=== PATIENT | female | born 2000 | race Caucasian/White ===

== ENCOUNTER 2022-09-18 08:05 | Outpatient (OUT) | payer OTHER, SELFPAY ==
--- NOTE | 2022-09-18 08:09 | US_ITS ---
[address] [address] Patient Name: LUCIAN CONTRERAS MRN: [id number] date: 2000 Sex: F Assigned Patient Location: US Current Patient Location: US Accession/Order Number: [id number] Exam Date: 09/18/2022 08:08 Report Date: 09/18/2022 09:15 At the request of: MIRELA TABOR Procedure: US OB transvaginal EXAMINATION: US OB transvaginal HISTORY: MISSED PERIOD COMPARISON: No relevant comparison available. FINDINGS: Transvaginal images Álvarez intrauterine gestation Gestational sac: 4.6 cm, 10 weeks 1 day CRL: 4.4 cm, 11 weeks 1 day Yolk sac: 3.8 mm Heart rate: 171 bpm Cervix: Closed, 4.3 cm The uterus is normal in appearance, anteverted, anteflexed The ovaries are normal in appearance. Clinical age: 8 weeks 5 days Clinical DONNA: 04/25/2023 Ultrasound age: 11 weeks 1 day Ultrasound DONNA: 04/08/2023 IMPRESSION: Viable álvarez intrauterine gestation measuring 11 weeks 1 day Electronically authenticated by: GALINA EVERETT Date: 09/18/2022 09:15
== END 2022-09-18 08:06 ==
LOC: US 08:06
PROVIDERS: Visit Provider Obstetrics & Gynecology
DX: Z34.91 Encounter for supervision of normal pregnancy, unspecified, first trimester (principal)
CPT/HCPCS: 36415; 76817; 83036; 84443; 85025; 86592; 86762; 86803; 86850; 86900; 86901; 87086; 87340; 87389

== ENCOUNTER 2022-09-18 10:45 | Outpatient (OUT) | payer OTHER, SELFPAY ==
[2022-09-18 11:30] LABS: Basophils Absolute Auto 0.1 10^3/uL (0.0-0.1); Basophils Percent Auto 0.9 % (0.2-2.0); Eosinophils Absolute Auto 0.1 10^3/uL (0.0-0.7); Hemoglobin 12.2 g/dL (12.0-16.0); Immature Granulocytes Abs Auto 0.05 10^3/uL (0.00-0.03); Immature Granulocytes Pct Auto 0.7 % (0.0-0.5); Lymphocytes Absolute Auto 1.6 10^3/uL (1.2-3.8); Mean Corpuscular HGB Conc 34.9 g/dL (29.9-35.2); Mean Corpuscular Hemoglobin 31.4 pg (26.7-34.0); Mean Platelet Volume 10.8 fL (9.5-13.5); Monocytes Absolute Auto 0.3 10^3/uL (0.3-0.8); Neutrophils Absolute Auto 4.8 10^3/uL (1.4-6.5); Neutrophils Percent Auto 70.4 % (43.0-75.0); Platelet Count 176 10^3/uL (150-450); Red Blood Count 3.89 10^6/uL (4.20-5.40); Red Cell Distribution Width 11.9 % (11.0-15.0); White Blood Count 6.8 10^3/uL (4.0-11.0)
[2022-09-18 11:57] LABS: Estimated Average Glucose 82 mg/dL; Glycohemoglobin A1C 4.5 % (4.5-6.2)
[2022-09-18 12:23] LABS: Thyroid Stimulating Hormone 3.931 uIU/mL (0.358-3.740)
[2022-09-19 06:09] LABS: HIV Ab/p24 Ag Screen Non Reactive (Non Reactive)
[2022-09-19 07:08] LABS: HBsAg Screen Negative (Negative); HCV Ab Non Reactive (Non Reactive); Rubella Antibodies, IgG 8.29 index (Immune >0.99)
[2022-09-19 10:10] LABS: Rapid Plasma Reagin, Quant Non Reactive (NonRea<1:1)
== END 2022-09-18 10:46 | disposition home or self-care (01) ==
LOC: LAB 10:48
PROVIDERS: Visit Provider Obstetrics & Gynecology
DX: N92.6 Irregular menstruation, unspecified (principal)
CPT/HCPCS: 36415; 83036; 84443; 85025; 86850; 86900; 86901

== ENCOUNTER 2022-10-21 20:53 | Outpatient (OUT) | payer OTHER, SELFPAY ==
[2022-10-28 03:22] LABS: Age Gdln ACOG Testing Note (.); HPV Aptima Negative (Negative); IGP, rfx Aptima HPV ASCU Note (.)
== END 2022-10-21 20:54 | disposition home or self-care (01) ==
PROVIDERS: Visit Provider Obstetrics & Gynecology
DX: Z12.4 Encounter for screening for malignant neoplasm of cervix (principal); Z11.51 Encounter for screening for human papillomavirus (HPV)
CPT/HCPCS: G0145

== ENCOUNTER 2022-11-19 08:55 | Outpatient (OUT) | payer OTHER, SELFPAY ==
--- NOTE | 2022-11-19 | US_ITS ---
[address] [address] Patient Name: LUCIAN CONTRERAS MRN: [id number] date: 2000 Sex: F Assigned Patient Location: US Current Patient Location: Accession/Order Number: [id number] Exam Date: 11/19/2022 08:59 Report Date: 11/19/2022 21:48 At the request of: MIRELA TABOR Procedure: US OB anatomy EXAMINATION: US OB anatomy HISTORY: ANATOMY COMPARISON: No relevant comparison available. TECHNIQUE: Transabdominal sonographic examination was performed for obstetrical and evaluation. FINDINGS: Number: 1 Heart Rate: 149.0 bpm H.B. /min Amniotic Fluid Volume: Subjectively normal Placental Location: Posterior, grade 0. Placental edge partially covers the internal os Cervix Length: 5 cm Normally visualized anatomy: Cerebellum, choroid plexus, cisterna magna, lateral cerebral ventricles, orbits, midline falx, hard palate, four-chamber heart, stomach, kidneys, bladder, umbilical cord insertion into the abdomen, three-vessel cord, cervical spine, thoracic spine, lumbar spine, sacral spine, right upper extremity, left upper extremity, right lower extremity, left lower extremity Suboptimally visualized anatomy: RVOT, LVOT BIOMETRY: BPD: 4.6 cm 19 weeks 5 days , 41% HC: 17.4 cm 19 weeks 6 days, 38% AC: 15.2 cm 20 weeks 3 days, 59% FL: 3.2 cm 20 weeks 0 days, 42% EFW:337.6 grams; 12 ounces, 56% FL/AC: 21.1 FL/BPD: 70.4 HC/AC: 1.1 GESTATIONAL AGE: Age by EDC: 20 weeks 0 days DONNA by EDC: 04/08/2023 Age by current US: 20 weeks 0 days DONNA by current US: 04/08/2023 US/US OB anatomy IMPRESSION: Suboptimal visualization of the RVOT and LVOT Partial placenta previa *Reference: [facility] Practice Guideline for the performance of Obstetric Ultrasound Examinations, January 04, 2007. Electronically authenticated by: GALINA EVERETT Date: 11/19/2022 21:48
== END 2022-11-19 08:56 | disposition home or self-care (01) ==
LOC: US 08:55
PROVIDERS: Visit Provider Obstetrics & Gynecology
DX: O44.22 Partial placenta previa NOS or without hemorrhage, second trimester (principal); Z3A.20 20 weeks gestation of pregnancy
CPT/HCPCS: 76805; 76817

== ENCOUNTER 2022-11-21 11:57 | Outpatient (OUT) | payer OTHER, SELFPAY ==
[2022-11-27 00:07] LABS: AFP Value 86.6 ng/mL (.); Gest. Age on Collection Date 20.3 weeks (.); Gestat. Age Based On Ultrasound (.); Insulin Dep Diabetes No (.); Maternal Age At EDD 22.2 yr (.); OSBR Risk 1 IN See interpretation. (.); Results Report (.)
== END 2022-11-21 11:58 | disposition home or self-care (01) ==
LOC: LAB 11:59
PROVIDERS: Visit Provider Obstetrics & Gynecology
DX: Z34.92 Encounter for supervision of normal pregnancy, unspecified, second trimester (principal)
CPT/HCPCS: 36415; 82105

== ENCOUNTER 2022-12-11 09:48 | Outpatient (OUT) | payer OTHER, SELFPAY ==
--- NOTE | 2022-12-11 10:03 | US_ITS ---
[place] [id number] Patient Name: LUCIAN CONTRERAS MRN: [id number] date: 2000 Sex: F Assigned Patient Location: RAD Current Patient Location: RAD Accession/Order Number: [id number] Exam Date: 12/11/2022 10:37 Report Date: 12/11/2022 16:38 At the request of: MIRELA TABOR Procedure: US OB placenta EXAM: US OB placenta, US OB transvaginal, US OB incomplete anatomy HISTORY: Placenta Previa Second Trimester O44.02 COMPARISON: None. TECHNIQUE: Transabdominal and transvaginal FINDINGS: position: Cephalic presentation, longitudinal lie Amniotic fluid: 13.2 cm Largest fluid pocket: 5.4 cm Placenta: Posterior. Grade 0. Placental edge to internal os 4.9 cm Heart rate: 139 bpm Cervix: Closed, 3.9 cm. 0.9 cm area of anechoic echogenicity possibly a nabothian cysts Anatomy: RVOT and four-chamber heart are normal Suboptimal visualization, LVOT Clinical age: 23 weeks 1 day Clinical DONNA: 04/08/2023 US/US OB placenta IMPRESSION: Normal appearance of the placenta Normal RVOT. 4 chamber heart Suboptimal visualization of the LVOT Electronically authenticated by: GALINA EVERETT Date: 12/11/2022 16:38
--- NOTE | 2022-12-11 10:03 | US_ITS ---
[address] [address] Patient Name: LUCIAN CONTRERAS MRN: [id number] date: 2000 Sex: F Assigned Patient Location: [facility] Current Patient Location: RAD Accession/Order Number: [id number] Exam Date: 12/11/2022 10:37 Report Date: 12/11/2022 16:38 At the request of: MIRELA TABOR Procedure: US OB incomplete anatomy EXAM: US OB placenta, US OB transvaginal, US OB incomplete anatomy HISTORY: Placenta Previa Second Trimester O44.02 COMPARISON: None. TECHNIQUE: Transabdominal and transvaginal FINDINGS: position: Cephalic presentation, longitudinal lie Amniotic fluid: 13.2 cm Largest fluid pocket: 5.4 cm Placenta: Posterior. Grade 0. Placental edge to internal os 4.9 cm Heart rate: 139 bpm Cervix: Closed, 3.9 cm. 0.9 cm area of anechoic echogenicity possibly a nabothian cysts Anatomy: RVOT and four-chamber heart are normal Suboptimal visualization, LVOT Clinical age: 23 weeks 1 day Clinical DONNA: 04/08/2023 US/US OB incomplete anatomy IMPRESSION: Normal appearance of the placenta Normal RVOT. 4 chamber heart Suboptimal visualization of the LVOT Electronically authenticated by: GALINA EVERETT Date: 12/11/2022 16:38
--- NOTE | 2022-12-11 10:34 | US_ITS ---
[address] [address] Patient Name: LUCIAN CONTRERAS MRN: [id number] date: 2000 Sex: F Assigned Patient Location: RAD Current Patient Location: RAD Accession/Order Number: [id number] Exam Date: 12/11/2022 10:37 Report Date: 12/11/2022 16:38 At the request of: MIRELA TBAOR Procedure: US OB transvaginal EXAM: US OB placenta, US OB transvaginal, US OB incomplete anatomy HISTORY: Placenta Previa Second Trimester O44.02 COMPARISON: None. TECHNIQUE: Transabdominal and transvaginal FINDINGS: position: Cephalic presentation, longitudinal lie Amniotic fluid: 13.2 cm Largest fluid pocket: 5.4 cm Placenta: Posterior. Grade 0. Placental edge to internal os 4.9 cm Heart rate: 139 bpm Cervix: Closed, 3.9 cm. 0.9 cm area of anechoic echogenicity possibly a nabothian cysts Anatomy: RVOT and four-chamber heart are normal Suboptimal visualization, LVOT Clinical age: 23 weeks 1 day Clinical DONNA: 04/08/2023 US/US OB transvaginal IMPRESSION: Normal appearance of the placenta Normal RVOT. 4 chamber heart Suboptimal visualization of the LVOT Electronically authenticated by: GALINA EVERETT Date: 12/11/2022 16:38
== END 2022-12-11 09:49 | disposition home or self-care (01) ==
LOC: RAD 09:52
PROVIDERS: Visit Provider Obstetrics & Gynecology
DX: O44.02 Complete placenta previa NOS or without hemorrhage, second trimester (principal); O28.8 Other abnormal findings on antenatal screening of mother; Z36.89 Encounter for other specified antenatal screening; Z3A.23 23 weeks gestation of pregnancy
CPT/HCPCS: 76815; 76817

== ENCOUNTER 2022-12-24 11:20 | Outpatient (OUT) | payer OTHER, SELFPAY ==
[2022-12-24 13:03] LABS: Glucose 1 Hour 98 mg/dL
[2022-12-24 13:29] LABS: Basophils Absolute Auto 0.1 10^3/uL (0.0-0.1); Eosinophils Absolute Auto 0.5 10^3/uL (0.0-0.7); Eosinophils Percent Auto 4.7 % (0.9-7.0); Hematocrit 34.6 % (36.0-48.0); Hemoglobin 12.1 g/dL (12.0-16.0); Immature Granulocytes Abs Auto 0.26 10^3/uL (0.00-0.03); Immature Granulocytes Pct Auto 2.6 % (0.0-0.5); Lymphocytes Absolute Auto 1.5 10^3/uL (1.2-3.8); Lymphocytes Percent Auto 15.4 % (20.5-60.0); Mean Corpuscular Hemoglobin 32.5 pg (26.7-34.0); Mean Platelet Volume 11.5 fL (9.5-13.5); Monocytes Absolute Auto 0.3 10^3/uL (0.3-0.8); Monocytes Percent Auto 3.2 % (1.7-12.0); Neutrophils Absolute Auto 7.2 10^3/uL (1.4-6.5); Neutrophils Percent Auto 73.1 % (43.0-75.0); Platelet Count 204 10^3/uL (150-450); Red Blood Count 3.72 10^6/uL (4.20-5.40); Red Cell Distribution Width 12.2 % (11.0-15.0); White Blood Count 9.9 10^3/uL (4.0-11.0)
== END 2022-12-24 11:21 | disposition home or self-care (01) ==
LOC: LAB 11:22
PROVIDERS: Visit Provider Obstetrics & Gynecology
DX: Z34.92 Encounter for supervision of normal pregnancy, unspecified, second trimester (principal)
CPT/HCPCS: 36415; 82950; 85025

== ENCOUNTER 2023-01-13 13:46 | Outpatient (OUT) | payer OTHER, SELFPAY | END 2023-01-13 13:47 | disposition home or self-care (01) | LOC: LAB 13:49 | PROVIDERS: Visit Provider Obstetrics & Gynecology | DX: N91.2 Amenorrhea, unspecified (principal) | CPT/HCPCS: 36415; 86850; 86900; 86901 ==

== ENCOUNTER 2023-01-14 07:39 | Outpatient (RCR) | payer OTHER, SELFPAY ==
[2023-01-14] MEDS: RHO(D) IMMUNE GLOBULIN 1,500 UNIT SYRINGE 1500 UNIT IM (11:45)
[2023-01-14 11:50] VITALS: BP 105/64; PULSE 100; RESP 18; TEMP 36.3; O2SAT 99
--- NOTE | 2023-01-14 12:25 | PC.NURSE ---
Patient without adverse reaction. Patient discharged home.
== END 2023-02-03 23:59 | disposition home or self-care (01) ==
LOC: INF 07:39
PROVIDERS: Visit Provider Obstetrics & Gynecology
DX: Z36.2 Encounter for other antenatal screening follow-up (principal); Z3A.20 20 weeks gestation of pregnancy; O26.893 Other specified pregnancy related conditions, third trimester; Z67.91 Unspecified blood type, Rh negative
CPT/HCPCS: 76816; 96372; J2790

== ENCOUNTER 2023-01-14 12:09 | Outpatient (OUT) | payer OTHER, SELFPAY ==
--- NOTE | 2023-01-14 14:02 | US_ITS ---
The [address] [address] Patient Name: LUCIAN CONTRERAS MRN: [id number] date: 2000 Sex: F Assigned Patient Location: US Current Patient Location: Accession/Order Number: [id number] Exam Date: 01/14/2023 14:05 Report Date: 01/14/2023 22:03 At the request of: MIRELA TABOR Procedure: US OB follow up EXAMINATION: US OB follow up HISTORY: Encounter For Follow Up Ultrasound Of Anatomy Z36.2 COMPARISON: Ultrasound OB anatomy 12/11/2022 FINDINGS: Presentation: Cephalic Heart rate: 142 bpm Anatomy: Four-chamber heart and cardiac outflow track without appreciable abnormality. GA: 20 weeks 0 days DONNA: 04/08/2023 US/US OB follow up IMPRESSION: 1. Single live intrauterine . 2. Adequate visualization of heart and cardiac outflow tracts without appreciable abnormality. Electronically authenticated by: LATRELL GARCIA Date: 01/14/2023 22:03
== END 2023-01-14 12:10 | disposition home or self-care (01) ==
LOC: US 12:10
PROVIDERS: Visit Provider Obstetrics & Gynecology
DX: Z36.2 Encounter for other antenatal screening follow-up (principal); Z3A.20 20 weeks gestation of pregnancy
CPT/HCPCS: 76816

== ENCOUNTER 2023-02-08 14:50 | Outpatient (OUT) | payer OTHER, SELFPAY ==
[2023-02-08 15:17] VITALS: BP 123/69; PULSE 88
[2023-02-08 15:37] LABS: Bilirubin Urine NEGATIVE (NEGATIVE); Blood Urine NEGATIVE (NEGATIVE); Clarity Urine CLEAR (CLEAR); Color Urine LT. YELLOW (YELLOW); Glucose Urine UA NEGATIVE (NEGATIVE); Ketones Urine NEGATIVE (NEGATIVE); Leukocyte Esterase Urine SMALL (NEGATIVE); Nitrite Urine NEGATIVE (NEGATIVE); Protein Urine NEGATIVE (NEG/TRACE); Urobilinogen Urine 0.2 EU/dL (0.2-1.0)
[2023-02-08 15:38] LABS: Urine Microscopic Indicated YES
[2023-02-08 15:48] LABS: Bacteria Urine SMALL #/HPF (NONE SEEN); Cast Seen? NONE SEEN #/LPF (NONE SEEN); Crystals Seen? None Seen #/HPF (None Seen); Mucus Urine NONE SEEN (NONE SEEN); RBC Urine 0-2 #/HPF (0-2); Squamous Epithelial Cell Urine MODERATE #/LPF (NONE/RARE); Urine Culture Indicated YES; WBC Urine 0-2 #/HPF (NONE SEEN)
== END 2023-02-08 16:57 | disposition home or self-care (01) ==
LOC: FBCO 14:52 → FBC 14:56
PROVIDERS: Visit Provider Obstetrics & Gynecology Gynecology
DX: O26.899 Other specified pregnancy related conditions, unspecified trimester (principal); R10.9 Unspecified abdominal pain; Z3A.00 Weeks of gestation of pregnancy not specified
CPT/HCPCS: 59025; 81001; 87086

== ENCOUNTER 2023-02-11 14:54 | Outpatient (OUT) | payer OTHER, SELFPAY ==
--- NOTE | 2023-02-11 14:57 | US_ITS ---
The [address] [address] Patient Name: LUCIAN CONTRERAS MRN: [id number] date: 2000 Sex: F Assigned Patient Location: US Current Patient Location: US Accession/Order Number: [id number] Exam Date: 02/11/2023 15:00 Report Date: 02/11/2023 16:05 At the request of: MIRELA TABOR Procedure: US OB growth EXAMINATION: US OB growth HISTORY: Size Inconsistent With Dates O26.849 COMPARISON: Ultrasound OB follow-up 01/14/2023; ultrasound OB incomplete anatomy 12/11/2022 FINDINGS: Heart Rate: 140.6 bpm Number: 1.0 Position: CEPHALIC Amniotic Fluid Volume: 11.0 cm Maximum Vertical Pocket: 4.1 cm BIOMETRY: BPD: 8.4 cm cm; 33 weeks 5 days HC: 30.0 cmcm; 33 weeks 1 days AC: 28.6 cm cm; 32 weeks 4 days FL: 6.0 cm cm; 31 weeks 2 days EFW: 1958.6 grams; 51% FL/AC: 21.1 FL/BPD: 71.9 HC/AC: 1.0 GESTATIONAL AGE: Age by EDC: 32 weeks 0 days DONNA by EDC: 04/08/2023 Age by US: 32 weeks 5 days DONNA by US: 04/03/2023 US/US OB growth IMPRESSION: 1. Single live intrauterine with growth detailed above. Electronically authenticated by: LATRELL GARCIA Date: 02/11/2023 16:05
--- OUTSIDE RECORDS SUMMARY | 2023-03-24 15:58 | XMS_ITS | CCD ---
Author Name Unknown Address [address] [place] [address] Organization [facility] Care Team Providers Care Basket Turner Name Role Phone NO FAMILY, PHYSICIAN Primary Care Unavailable Torito Garcia Admitting Unavailable Torito Garcia Attending Unavailable Torito Garcia Admitting Unavailable Torito Garcia Attending Unavailable NO FAMILY, PHYSICIAN Primary Care Unavailable Wallace Regalado Admitting Unavailable Wallace Regalado Attending Unavailable NO FAMILY, PHYSICIAN Primary Care Unavailable MAYELA ESPINO Admitting Unavailable MAYELA ESPINO Attending Unavailable REQUEST, NONE LISTED Primary Care Unavaila ble EDELMIRA INTERIANO Consulting Unavailable REQUEST, NONE LISTED Primary Care Unavaila ble PAY, DR BOWEN Admitting Unavailable PAY, DR BOWEN Attending Unavailable CHANG, DR RASCON Consulting Unavailable REQUEST, NONE LISTED Primary Care Unavaila ble MIREILLE, JODI Admitting Unavailable MIREILLE, JODI Attending Unavailable MIREILLE, JODI Consulting Unavailable REQUEST, NONE LISTED Primary Care Unavaila ble MIREILLE, JODI Admitting Unavailable MIREILLE, JODI Attending Unavailable MIREILLE, JODI Consulting Unavailable Ahdoot, Moni Consulting Unavailable NONE, XXXX Primary Care Physician Unavailab Ayaan Bliss H Attending Unavailable Ayaan Reed H Attending Unavailable Mirela TABOR Admitting Unavailable Mirela TABOR Attending Unavailable RUTH INTERIANO Attending Unavailable MIRELA TABOR Attending Unavailable SHARONA, MIRELA Attending Unavailable RUTH INTERIANO Attending Unavailable Allergies Allergy Classification Reported Allergen(s) Allergy Type Date of Onset Reaction(s) Facility (1 source) No Known Medication Allergies; Translations: [No Known Medication Allergies] Propensity to adverse reactions (disorder) [facility] Repository Medications Current Medications Medication Drug Class(es) Dates Sig (Normalized) Sig (Original) loratadine 10 mg oral tablet (2 sources) Start: 12-02-2022 End: 12-12-2022 take 1 tablet by mouth once daily loratadine 10 mg Tab 10 mg = 1 tab(s), Oral, Daily, X 10 day(s), # 10 tab(s), Refills(s) 0, Pharmacy: [facility]/pharmacy #[id number], 167.6, cm, 12/02/22 16:49:00 EDT, Height/Length Dosing, 61.4, kg, 12/02/22 16:49:00 EDT, Weight Dosing Start Date: 12/02/22 Stop Date: 12/12/22 Status: Ordered methylPREDNISolone 4 mg oral tablet (2 sources) Corticosteroid Start: 12-02-2022 End: 12-08-2022 Medrol Dosepack 4 mg Tab = 1 packet(s), Oral, As Directed, as directed on package labeling, X 6 day(s), # 21 tab(s), Refills(s) 0, Pharmacy: [facility]/pharmacy #[id number], 167.6, cm, 12/02/22 16:49:00 EDT, Height/Length Dosing, 61.4, kg, 12/02/22 16:49:00 EDT, Weight Dosing Start Date: 12/02/22 Stop Date: 12/08/22 Status: Ordered Multivitamins (2 sources) Start: 12-05-2022 take 1 tablet by mouth once daily Multivitamins 1 tab(s), Oral, Daily, Refill(s) 0 Start Date: 12/05/22 Status: Ordered Problems Active Problems Problem Classification Problem Date Documented Da te Episodic/Chronic Allergic reactions (1 source) Allergic disposition; Translations: [Allergy, unspecified, initial encounter] Onset: 12-02-2022 Episodic E Codes: Cut/pierceb (1 source) Other foreign body or object entering through skin, initial encounter; Translations: [OTH FB/OBJ ENTERING THRU SKIN INIT] Onset: 03-06-2022 Episodic E Codes: Struck by; against (1 source) Other cause of strike by thrown, projected or falling object, initial encounter; Translations: [OTH CAUSE STRIK THRWN/FALL OBJ INIT] Onset: 04-21-2022 Episodic Headache; including migraine (1 source) Headache; including migraine; Translations: [HEADACHE UNSPECIFIED] Onset: 02-17-2022 Nausea and vomiting (4 sources) Vomiting, unspecified; Translations: [Nausea with vomiting, unspecified] Onset: 02-14-2022 Episodic Other connective tissue disease (3 sources) Pain in right finger(s); Translations: [PAIN IN RIGHT FINGERS] Onset: 04-18-2022 Episodic Superficial injury; contusion (5 sources) Contusion of right index finger without damage to nail, initial encounter; Translations: [Superficial foreign body of left middle finger, initial encounter] Onset: 03-03-2022 Episodic Unclassified (1 source) Unspecified injury of left wrist, hand and finger(s), initial encounter; Translations: [Unspecified injury of left wrist, hand and finger(s), initial encounter] Onset: 03-03-2022 Unclassified (1 source) O03.9 - Complete or unspecified spontaneous without complication; Translations: [O03.9 - Complete or unspecified spontaneous without complication] Onset: 06-05-2021 Unclassified (1 source) N93.9 - Abnormal uterine and vaginal bleeding, unspecified; Translations: [N93.9 - Abnormal uterine and vaginal bleeding, unspecified] Onset: 05-28-2021 Unclassified (2 sources) Onset: 12-05-2022 12-05-2022 Past or Other Problems Problem Classification Problem Date Documented Da te Episodic/Chronic Other injuries and conditions due to external causes (1 source) History of falling; Translations: [HISTORY OF FALLING] Onset: 08-14-2021 Episodic Other nervous system disorders (3 sources) Anesthesia of skin; Translations: [ANESTHESIA OF SKIN] Onset: 08-12-2021 Episodic Other non-traumatic joint disorders (1 source) Pain in right hip; Translations: [PAIN IN RIGHT HIP] Onset: 08-14-2021 Episodic Spondylosis; intervertebral disc disorders; other back problems (1 source) Sciatica, right side; Translations: [SCIATICA RIGHT SIDE] Onset: 08-14-2021 Episodic Results Test Name Value Interpretation Reference Range Facil ity Nursing Assessmenton 023 Nursing Assessment [id number]:127 Normal [facility] Consent for Treatmenton Consent for Treatment [id number]:127 Normal [facility] Discharge Instructionson Discharge Instructions [id number]:127 Normal [facility] Inpatient Clinical Summaryon 12-05-2022 Inpatient Clinical Summary [address] [address] Clinical Summary Person Information Name: LUCIAN CONTRERAS/[facility] Age: 21 Years : 2000 Sex: Female PCP: NONE, XXXX Marital Status: Single Race: White Ethnicity: Non- or Language: Congolese Visit Id: Visit Reason: ABDOMINAL PAIN Speciality: Acuity: Enc Type: OB Triage Med Service: Obstetrics Arrival: 12/05/2022 15:05:48 Discharge: 12/05/2022 16:05:00 Dispo Type: Home ([facility] [place]) Address: [address] [place] [id number] Provider Notes: Diagnosis: Problems Active (12/05/2022) Smoking Status: Never Smoker, Former vaping or e-cigarette use Functional Status: Sensory Deficits: History of Falls: Mobility Assistance Prior to Admission: ADLs: Current Level of Assistance for Self-Care/Mobility: Cognitive Status: Allergies No Known Medication Allergies Laboratory or Other Results This Visit (last charted value for your 12/05/2022 visit) Urinalysis 12/05/2022 3:13 PM UA Bacteria: Trace /HPF UA Bili: Negative UA Color: Yellow UA Glucose: Negative UA Ketones: Negative UA Leuk Est: Trace UA Mucous: 1+ UA Nitrite: Negative UA Protein: Negative UA RBC: 0-3 /HPF UA Squam Epithelial: 0-2 /HPF UA Urobilinogen: 0.2 EU/dL -- Normal range between ( 0.0 and 1.0 ) UA WBC: 0-5 /HPF UA Spec Desc: Clean Catch UA Blood: Negative UA Clarity: Cloudy UA pH: 7.5 -- Normal range between ( 5.0 and 9.0 ) UA Spec Grav: 1.015 -- Normal range between ( 1.005 and 1.030 ) UA Amorph Gema: Present Measurements: Height: 167.6 cm Weight: 61.8 kg Blood Pressure: 115 mmHg / 63 mmHg BMI: 22 kg/m2 Procedures No Procedures Documented Immunizations No Immunizations Documented This Visit Final Med List: loratadine (loratadine 10 mg Tab) 1 Tablets By Mouth every day for 10 Days. Refills: 0. methylPREDNISolone (Medrol Dosepack 4 mg Tab) 1 Packets By Mouth As Directed for 6 Days. as directed on package labeling. Refills: 0. multivitamin, ( Multivitamins) 1 Tablets By Mouth every day. Care Team Members: Attending Physician: Mirela TABOR DO Consulting Physician: Referring Physician: Follow up: With: Address: When: Mirela TABOR [facility], [address] [place] [address] Kyle Diggs [place] [phone] [facility] (1) In 12 days 12/17/2022 Comments: Return if ruptured membranes or vaginal bleeding Return for decreased movement Return for contractions closer, longer, harder Call physician if symptoms worsen Call for severe abdominal pain Call for fever > 100.5 F Call for any problems. Patient Education Information: Second Trimester of , Msmj-er-Nutj Normal [facility] Inpatient Patient Summaryon 12-05-2022 Inpatient Patient Summary [address] [address] Patient Discharge Instructions PERSON INFORMATION Name: LUCIAN CONTRERAS Date of : 2000 Current Date: 12/05/2022 16:15:08 PHYSICIANS Admitting Physician: Mirela TABOR DO Primary Care Physician: NONE, XXXX PCP Phone Number: Comment: Discharge Diagnosis: Condition at Discharge: LUCIAN CONTRERAS has been given the following list of follow-up instructions, prescriptions, and patient education materials: PATIENT FOLLOW-UP INFORMATION Diet: Activity: Wound Care Instructions: Remove Your Dressing IN: Days Call Your Doctor For: IF UNABLE TO CONTACT YOUR PHYSICIAN AND YOU FEEL IT IS AN EMERGENCY, GO TO THE NEAREST EMERGENCY ROOM OR CALL 911 Home Treatment: Devices/Equipment: Special Services: Additional Instructions: Physician to provide the following pending test results: Follow up: With: Address: When: Mirela TABOR [facility], [address] [place] [address] , [place] [address] Business ([employer] In 12 days 12/17/2022 Comments: Return if ruptured membranes or vaginal bleeding Return for decreased movement Return for contractions closer, longer, harder Call physician if symptoms worsen Call for severe abdominal pain Call for fever > 100.5 F Call for any problems. In the event that this physician does not participate in your insurance network, please consult with your insurance company to find a nearby participating provider. Comment: BEN Moss KAITLYN E, have received the attached patient education materials/instructions and have verbalized understanding. Patient Signature Date Clinican/Nurse Signature Date MEDICATION LIST Medications to Continue with No Changes Other Medications loratadine (loratadine 10 mg Tab) 1 Tablets By Mouth every day for 10 Days. Refills: 0. Last Dose: Next Dose: methylPREDNISolone (Medrol Dosepack 4 mg Tab) 1 Packets By Mouth As Directed for 6 Days. as directed on package labeling. Refills: 0. Last Dose: Next Dose: multivitamin, ( Multivitamins) 1 Tablets By Mouth every day. Last Dose: Next Dose: Pharmacy Information: [facility] PATIENT EDUCATION INFORMATION Instructions: Second Trimester of The second trimester of is from week 13 through week 27. This is also called months 4 through 6 of . This is often the time when you feel your best. During the second trimester: ? Morning sickness is less or has stopped. ? You may have more energy. ? You may feel hungry more often. At this time, your unborn baby (fetus) is growing very fast. At the end of the sixth month, the unborn baby may be up to 12 inches long and weigh about 1? pounds. You will likely start to feel the baby move between 16 and 20 weeks of . Body changes during your second trimester Your body continues to go through many changes during this time. The changes vary and generally return to normal after the baby is born. Physical changes ? You will gain more weight. ? You may start to get stretch hall on your hips, belly (abdomen), and breasts. ? Your breasts will grow and may hurt. ? Dark spots or blotches may develop on your face. ? A dark line from your belly button to the pubic area (linea nigra) may appear. ? You may have changes in your hair. Health changes ? You may have headaches. ? You may have heartburn. ? You may have trouble pooping (constipation). ? You may have hemorrhoids or swollen, bulging veins (varicose veins). ? Your gums may bleed. ? You may pee (urinate) more often. ? You may have back pain. Follow these instructions at home: Medicines ? Take tfgi-ocr-wdxblup and prescription medicines only as told by your doctor. Some medicines are not safe during . ? Take a vitamin that contains at least 600 micrograms (mcg) of folic acid. Eating and drinking ? Eat healthy meals that include: ? Fresh fruits and vegetables. ? Whole grains. ? Good sources of protein, such as meat, eggs, or tofu. ? Low-fat dairy products. ? Avoid raw meat and unpasteurized juice, milk, and cheese. ? You may need to take these actions to prevent or treat trouble pooping: ? Drink enough fluids to keep your pee (urine) pale yellow. ? Eat foods that are high in fiber. These include beans, whole grains, and fresh fruits and vegetables. ? Limit foods that are high in fat and sugar. These include fried or sweet foods. Activity ? Exercise only as told by your doctor. Most people can do their usual exercise during . Try to exercise (more content not included)... Normal [facility] Insurance Correspondenceon 0 12-05-2022 Insurance Correspondence [id number]:127 Normal [facility] UA With Cult Reflexon 2022 Bacteria LM Ql (Urine sed) TRACE Normal Trace [facility] Comment on above: Performed By: #### 1 [id number] ####[facility] [address] [place] [address] Bilirubin Ql (U) Negative Normal Negative [facility] Comment on above: Performed By: #### 1 [id number] ####[facility] [address] [place] [address] Clarity (U) CLOUDY Abnormal Clear [facility] Comment on above: Performed By: #### 1 [id number] ####[address] [address] Color (U) YELLOW Normal Yellow [facility] Comment on above: Performed By: #### 1 [id number] ####[facility] [address] [place] [address] Crystals LM Ql (Urine sed) Present Normal [facility] Comment on above: Performed By: #### 1 [id number] ####[facility] [address] [place] [address] Epithelial cells.squamous LM .HPF (Urine sed) [#/Area] 0-2 Normal 0-2 [facility] Comment on above: Performed By: #### 1 [id number] ####[address] [address] Glucose Test strip (U) [Mass/Vol] Negative Normal Negative [facility] Comment on above: Performed By: #### 1 [id number] ####[address] [address] Hemoglobin Ql (U) Negative Normal Negative [facility] Comment on above: Performed By: #### 1 [id number] ####[address] [address] Ketones (U) [Mass/Vol] Negative Normal Negative [facility] Comment on above: Performed By: #### 1 [id number] ####[address] [address] [place].plasma/Joppa.RBC (Bld) [Mass ratio] 0-3 N ormal 0-3 [facility] Comment on above: Performed By: #### 1 [id number] ####[address] [address] Mucus Ql (Urine sed) 1+ Normal [facility] Comment on above: Performed By: #### 1 [id number] ####[address] [address] Nitrite Ql (U) Negative Normal Negative [facility] Comment on above: Performed By: #### 1 [id number] ####[address] [address] pH (U) 7.5 [pH] Invalid Interpretation Code 5.0-9.0 [facility] Comment on above: Performed By: #### 1 [id number] ####[address] [address] Protein (U) [Mass/Vol] Negative Normal Negative [facility] Comment on above: Performed By: #### 1 [id number] ####[address] [address] Specific gravity (U) [Rel density] 1.015 Invalid Interpretation Code 1.005-1.030 [facility] Comment on above: Performed By: #### 1 [id number] ####[facility] [address] [place] [address] Type of Urine collection method Clean Catch Normal [facility] Comment on above: Performed By: #### 1 [id number] ####[facility] [address] [place] [address] Urobilinogen Qn (U) 0.2 {Bradly'U}/dL Normal 0.0-1.0 [facility] Comment on above: Performed By: #### 1 [id number] ####[facility] [address] [place] [address] WBC Auto Ql (U) TRACE Abnormal Negative [facility] Comment on above: Performed By: #### 1 [id number] ####[facility] [address] [place] [address] WBC LM.HPF (Urine sed) [#/Area] 0-5 Normal 0-5 [facility] Comment on above: Performed By: #### 1 [id number] ####[facility] [address] [place] [address] URINALYSISOrdered By: Rob Obrien on 12-05-2022 Bacteria LM Ql (Urine sed) Trace /HPF Normal Trace/HPF [facility] UA Auto SS Bilirubin Ql (U) Negative (12/05/22 3:13 PM) Normal Negative [facility] UA Auto SS Clarity (U) Cloudy *ABN* (12/05/22 3:13 PM) Invalid Interpretation Code Clear [facility] UA Auto SS Color (U) Yellow (12/05/22 3:13 PM) Normal Yellow [facility] UA Auto SS Crystals LM Ql (Urine sed) Present (12/05/22 3:13 PM) Normal [facility] UA Auto SS Epithelial cells.squamous LM.HPF (Urine sed) [#/Area] 0-2 /HPF Normal 0-2/HPF [facility] UA Auto SS Glucose Test strip (U) [Mass/Vol] Negative (12/05/22 3:13 PM) Normal Negative [facility] UA Auto SS Hemoglobin Ql (U) Negative (12/05/22 3:13 PM) Normal Negative [facility] UA Auto SS Ketones (U) [Mass/Vol] Negative (12/05/22 3:13 PM) Normal Negative [facility] UA Auto SS [place].plasma/Lithi um.RBC (Bld) [Mass ratio] 0-3 /HPF Normal 0-3/HPF [facility] UA Auto SS Mucus Ql (Urine sed) 1+ (12/05/22 3:13 PM) Normal [facility] UA Auto SS Nitrite Ql (U) Negative (12/05/22 3:13 PM) Normal Negative [facility] UA Auto SS pH (U) 7.5 *NA* (12/05/22 3:13 PM) Invalid Interpretation Code 5.0 - 9.0 [facility] UA Auto SS Protein (U) [Mass/Vol] Negative (12/05/22 3:13 PM) Normal Negative [facility] UA Auto SS Specific gravity (U) [Rel density] 1.015 *NA* (12/05/22 3:13 PM) Invalid Interpretation Code 1.005 - 1.030 [facility] UA Auto SS UA Spec Desc Clean Catch (12/05/22 3:13 PM) Normal [facility] UA Auto SS Urobilinogen Qn (U) 0.6654233 {Bradly'U}/dL Normal 0.0 - 1.0 EU/dL [facility] UA Auto SS WBC Auto Ql (U) Trace *ABN* (12/05/22 3:13 PM) Invalid Interpretation Code Negative [facility] UA Auto SS WBC LM.HPF (Urine sed) [#/Area] 0-5 /HPF Normal 0-5/HPF [facility] UA Auto SS Consent for Treatmenton 11-05 Consent for Treatment [id number]:127 Normal [facility] Discharge Instructionson Discharge Instructions [id number]:127 Normal [facility] ED Clinical Summaryon 2022 ED Clinical Summary (Inserted Image. Lis ble to display) [place] [id number] ED Clinical Summary [facility] 21 [facility] : 2000 Sex: Female Language: Congolese PCP: NONE, XXXX Marital Status: Single Visit Id: Visit Reason: Rash; Eye problem; EYE IRRITATION W/ SWELLING & RASH/HIVES ON WRISTS Speciality: Acuity: 4 Enc Type: Emergency Med Service: Emergency Arrival: 12/02/2022 16:40:51 Discharge: 12/02/2022 17:01:49 LOS: 000 00:21 Checkin: 12/02/2022 16:40:51 Checkout: 12/02/2022 17:01:49 Dispo Type: Home (Routine DC) EVENTS: Event Name Event Status Request Date/Time Start Date/Time Complete Date/Time Arrive Complete 12/02/2022 16:40:51 12/02/2022 16:40:51 12/02/2022 16:40:51 Document Home Meds Request 12/02/2022 16:40:51 Triage Complete 12/02/2022 16:40:51 12/02/2022 16:49:30 12/02/2022 16:49:30 Bed Assign Complete 12/02/2022 16:44:20 12/02/2022 16:44:20 12/02/2022 16:44:20 Dr Exam Complete 12/02/2022 16:44:20 12/02/2022 16:47:57 12/02/2022 16:47:57 RN Exam Complete 12/02/2022 16:44:20 12/02/2022 16:51:36 12/02/2022 16:51:36 Registration Complete 12/02/2022 16:44:57 12/02/2022 16:44:57 12/02/2022 16:44:57 Reg Complete Request 12/02/2022 16:44:57 Reg Bed Request Complete 12/02/2022 16:44:57 12/02/2022 16:44:57 12/02/2022 16:44:57 Registration Request 12/02/2022 16:47:57 Dr Exam Complete 12/02/2022 16:53:40 12/02/2022 16:53:40 12/02/2022 16:53:40 Discharge Complete 12/02/2022 16:59:17 12/02/2022 17:01:53 12/02/2022 17:01:53 Transfer Complete 12/02/2022 17:01:53 12/02/2022 17:01:53 12/02/2022 17:01:53 ADDRESS: [address] [place] [id number] PHYS DOC NOTES: MEDICAL INFORMATION: Prescriptions Given: New Medications [id number], [address] [place], [place] [id number], [phone] loratadine (loratadine 10 mg Tab) 1 Tablets By Mouth every day for 10 Days. Refills: 0. methylPREDNISolone (Medrol Dosepack 4 mg Tab) 1 Packets By Mouth As Directed for 6 Days. as directed on package labeling. Refills: 0. PATIENT EDUCATION INFORMATION: Instructions: Allergies, Adult Follow up: With: Address: When: Ryan Link [address], [facility] [address] [place] [address] Business (1) In 3 days 12/05/2022 DIAGNOSIS: Allergic reaction Normal [facility] ED Note-Physicianon 12-03-19 ED Note-Physician Basic Information Time Seen: Carroll Keene PA-C 12/02/2022 16:47 Chief Complaint Pt reports eye swelling and rash on bilateral wrists. Eye swelling started around one week ago. denies exposure to chemicals/any new detergents/soaps History of Present Illness 21-year-old female comes to the ED for evaluation of allergic reaction. She had waxing waning allergic symptoms over the past week. She thought it was due to a new detergent but she changed her detergent continues to have symptoms. She complains of generalized pruritus and now is developed some facial swelling and eye irritation. No fever, chills, nausea, vomiting. No chest pain or shortness of breath. She is currently 25 weeks . Review of Systems A 10 point review of systems is negative except as noted above. Medical and Surgical History: Reviewed and noted Social history: Lives at home Tobacco: Denies Physical Exam Vitals & Measurements T: 36.5 ?C(Oral) HR: 108(Peripheral) RR: 16 BP: 124/82 SpO2: 100% HT: 167.64 cm WT: 61.4 kg BMI: 21.85 Nurses notes and vital signs reviewed and patient is not hypoxic. General: The patient appears well, resting comfortably. Skin: Warm, dry. Scattered urticarial rash Head: Atraumatic. Neck: No JVD. Eye: Allergic conjunctivitis with clear drainage Ears, Nose, Mouth, and Throat: Moist mucous membranes. Cardiovascular: Strong distal pulses. Chest wall: Respiratory: Respirations are nonlabored. Back: Normal range of motion. Musculoskeletal: Normal ROM with no gross deformity. Gastrointestinal: Urological: Neurological: Awake and alert. No focal deficits. Follows commands. Psychiatric: Cooperative. Medical Decision Making Patient presents with allergic reaction. Unclear trigger and she will continue to evaluate for possible causes. She now is developed facial involvement but no airway involvement. No fever, chills, nausea or vomiting. No chest pain or shortness of breath. She is treated Medrol Dosepak and loratadine she is discharged home with PCP follow-up. Patient was encouraged to return to the ED if symptoms worsen or change. Assessment/Plan Allergic reaction (T78.40XA: Allergy, unspecified, initial encounter) Orders: loratadine, 10 mg = 1 tab(s), Oral, Daily, X 10 day(s), # 10 tab(s), Refills(s) 0, Pharmacy: [facility]/pharmacy #[id number], 167.6, cm, 12/02/22 16:49:00 EDT, Height/Length Dosing, 61.4, kg, 12/02/22 16:49:00 EDT, Weight Dosing methylPREDNISolone, = 1 packet(s), Oral, As Directed, as directed on package labeling, X 6 day(s), # 21 tab(s), Refills(s) 0, Pharmacy: [facility]/pharmacy #[id number], 167.6, cm, 12/02/22 16:49:00 EDT, Height/Length Dosing, 61.4, kg, 12/02/22 16:49:00 EDT, Weight Dosing Disposition Plan Patient Discharge Condition Disposition: Discharged home Condition: Improved and stable Counseled: Patient and/or family were counseled to workup, results, treatment plan and follow-up recommendations Discharge Prescription List Prescriptions loratadine 10 mg Tab, 10 mg= 1 tab(s), Oral, Daily Medrol Dosepack 4 mg Tab, 1 packet(s), Oral, As Directed Follow-up With When Contact Information Ryan Link In 3 days 12/05/2022 EDT [address], [address] [facility] [place] [address] [facility] (1) Additional Instructions: Patient Education Allergies, Adult Attestation Patient seen and evaluated by the physician trust operations assistant. Attending physician was present in the emergency department and supervised care. This visit was performed by both the physician and an APC. I performed all aspects of the MDM as documented. This report was transcribed using voice recognition software. Every effort was made to ensure accuracy, however, inadvertently computerized horticultural services supervisor mistakes may be present. Appropriate healthcare PPE was used in evaluating this patient. The patient was placed in a mask. The healthcare provider was wearing mask, gloves, and utilizing proper hand hygiene. All equipment was properly cleansed. Problem List/Past Medical History Ongoing No qualifying data Historical No qualifying data Medications Inpatient No active inpatient medications Home loratadine 10 mg Tab, 10 mg= 1 tab(s), Oral, Daily Medrol Dosepack 4 mg Tab, 1 packet(s), Oral, As Directed Allergies No Known Medication Allergies Social History Alcohol - Denies Alcohol Use, 08/21/2022 Substance Abuse - Denies Substance Abuse, 08/21/2022 Tobacco - Denies Tobacco Use, 08/21/2022 Lab Results No qualifying data available. Diagnostic Results No qualifying data available. Normal [facility] Comment on above: Result Comment: Elec tronically Signed By: Carroll Keene PA-C\.br\Date and Time Signed: 12/02/22 17:06 EDT\.br\Electronically Co-Signed By: Ayaan Reed M.D.\.br\Date and Time Co-Signed: 12/02/22 17:10 EDT ED Patient Education Noteon 12-02-2022 ED Patient Education Note Immunology Allergies, Adult An allergy is a condition in which the body's defense system (immune system) comes in contact with an allergen and reacts to it. An allergen is anything that causes an allergic reaction. Allergens cause the immune system to make proteins for fighting infections (antibodies). These antibodies cause cells to release chemicals called histamines that set off the symptoms of an allergic reaction. Allergies often affect the nasal passages (allergic rhinitis), eyes (allergic conjunctivitis), skin (atopic dermatitis), and stomach. Allergies can be mild, moderate, or severe. They cannot spread from person to person. Allergies can develop at any age and may be outgrown. What are the causes? This condition is caused by allergens. Common allergens include: ? Outdoor allergens, such as pollen, car fumes, and mold. ? Indoor allergens, such as dust, smoke, mold, and pet dander. ? Other allergens, such as foods, medicines, scents, insect bites or stings, and other skin irritants. What increases the risk? You are more likely to develop this condition if you have: ? Family members with allergies. ? Family members who have any condition that may be caused by allergens, such as asthma. This may make you more likely to have other allergies. What are the signs or symptoms? Symptoms of this condition depend on the severity of the allergy. Mild to moderate symptoms ? Runny nose, stuffy nose (nasal congestion), or sneezing. ? Itchy mouth, ears, or throat. ? A feeling of mucus dripping down the back of your throat (postnasal drip). ? Sore throat. ? Itchy, red, watery, or puffy eyes. ? Skin rash, or itchy, red, swollen areas of skin (hives). ? Stomach cramps or bloating. Severe symptoms Severe allergies to food, medicine, or insect bites may cause anaphylaxis, which can be life-threatening. Symptoms include: ? A red (flushed) face. ? Wheezing or coughing. ? Swollen lips, tongue, or mouth. ? Tight or swollen throat. ? Chest pain or tightness, or rapid heartbeat. ? Trouble breathing or shortness of breath. ? Pain in the abdomen, vomiting, or diarrhea. ? Dizziness or fainting. How is this diagnosed? This condition is diagnosed based on your symptoms, your family and medical history, and a physical exam. You may also have tests, including: ? Skin tests to see how your skin reacts to allergens that may be causing your symptoms. Tests include: ? Skin prick test. For this test, an allergen is introduced to your body through a small opening in the skin. ? Intradermal skin test. For this test, a small amount of allergen is injected under the first layer of your skin. ? Patch test. For this test, a small amount of allergen is placed on your skin. The area is covered and then checked after a few days. ? Blood tests. ? A challenge test. For this test, you will eat or breathe in a small amount of allergen to see if you have an allergic reaction. You may also be asked to: ? Keep a food diary. This is a record of all the foods, drinks, and symptoms you have in a day. ? Try an elimination diet. To do this: ? Remove certain foods from your diet. ? Add those foods back one by one to find out if any foods cause an allergic reaction. How is this treated? Treatment for allergies depends on your symptoms. Treatment may include: ? Cold, wet cloths (cold compresses) to soothe itching and swelling. ? Eye drops or nasal sprays. ? Nasal irrigation to help clear your mucus or keep the nasal passages moist. ? A humidifier to add moisture to the air. ? Skin creams to treat rashes or itching. ? Oral antihistamines or other medicines to block the reaction or to treat inflammation. ? Diet changes to remove foods that cause allergies. ? Being exposed again and again to tiny amounts of allergens to help you build a defense against it (tolerance). This is called immunotherapy. Examples include: ? Allergy shot. You receive an injection that contains an allergen. ? Sublingual immunotherapy. You take a small dose of allergen under your tongue. ? Emergency injection for anaphylaxis. You give yourself a shot using a syringe (auto-injector) that contains the amount of medicine you need. Your health care provider will teach you how to give yourself an injection. Follow these instructions at home: Medicines ? Take or apply femj-ttr-bghgdsi and prescription medicines only as told by your health care provider. ? Always carry your auto-injector pen if you are at risk of anaphylaxis. Give yourself an injection as told by your health care provider. Eating and drinking ? Follow instructions from your health care provider about eating or drinking restrictions. ? Drink enough fluid to keep your urine pale yellow. General instructions ? Wear a medical alert bracelet or necklace to let others know that you have had (more content not included)... Normal [facility] ED Patient Summaryon 023 ED Patient Summary [address] [address] Patient Discharge Instructions Person Information Name: LUCIAN CONTRERAS Age: 21 Years Arrival Date: 12/02/2022 16:40:51 Discharge Diagnosis: Allergic reaction Primary Care Physician: NONE, XXXX Provider Information Primary Provider: Ayaan Reed M.D. Advanced Housekeeper And Laundry Assistant:Carroll Keene PA-C The exam and treatment you received in the Emergency Department were for an urgent problem and are not intended as complete care. It is important that you follow up with a doctor, nurse practitioner, or physician?s trust operations assistant for ongoing care. If your symptoms become worse or you do not improve as expected and you are unable to reach your usual health care provider, you should return to the Emergency Department. We are available 24 hours a day. LUCIAN CONTRERAS has been given the following list of patient education materials, prescriptions and follow-up instructions: Follow-up Instructions: With: Address: When: Ryan Link [address], [address] [place], [place] [id number] Business (1) In 3 days 12/05/2022 In the event that this physician does not participate in your insurance network, please consult with your insurance company to find a nearby participating provider. Patient Education Materials: Allergies, Adult A MESSAGE TO ALL PATIENTS REGARDING OPIOIDS PRESCRIPTION OPIOIDS: WHAT YOU NEED TO KNOW Prescription opioids can be used to help relieve ftmtqyej-ys-vbsvda pain and are often prescribed following a surgery or injury, or for certain health conditions. These medications can be an important part of the treatment but also come with serious risks. It is important to work with your healthcare provider to make sure you are getting the safest, most effective care. WHAT ARE THE RISKS AND SIDE EFFECTS OF OPIOID USE? Prescription opioids carry serious risks of addiction and overdose, especially with prolonged use. An opioid overdose, often marked by slowed breathing, can cause sudden . The use of prescription opioids can have a number of side effects as well, even when taken as directed: ? Tolerance?meaning you might need to take more of the medication for the same pain relief ? Physical dependence?meaning you have symptoms of withdrawal when a medication is stopped ? Increased sensitivity to pain ? Constipation ? Nausea, vomiting, and dry mouth ? Sleepiness and dizziness ? Confusion ? Depression ? Low levels of testosterone that can result in lower sex drive, energy, and strength ? Itching and sweating RISKS ARE GREATER WITH: ? History of drug misuse, substance use disorder, or overdose ? Mental health conditions (such as depression or anxiety) ? Sleep apnea ? Older age (65 years and older) ? Avoid alcohol while taking prescription opioids. Also, unless specifically advised by your health care provider, medications to avoid include: ? Benzodiazepines (such as Xanax or Valium) ? Muscle relaxants (such as Soma or Flexeril) ? Hypnotics (such as Ambien or Lunesta) ? Other prescription opioids KNOW YOUR OPTIONS Talk to your health care provider about ways to manage your pain that don?t involve prescription opioids. Some of these options may actually work better and have fewer risks and side effects. Options may include: ? Pain relievers such as acetaminophen, ibuprofen, and naproxen ? Some medication that are also used for depression or seizures ? Physical therapy and exercise ? Cognitive behavioral therapy, a psychological, goal-directed approach, in which patients learn how to modify physical, behavioral, and emotional triggers of pain and stress. IF YOU ARE PRESCRIBED OPIOIDS FOR PAIN: ? Never take opioids in greater amounts or more often than prescribed. ? Follow up with your primary health care provider. o Work together to create a plan on how to manage your pain. o Talk about ways to help manage your pain that don?t involve prescription opioids. o Talk about any and all concerns and side effects. ? Help prevent misuse and abuse o Never sell or share prescription opioids. o Never use another person?s prescription opioids. ? Store prescription opioids in a secure place and out of reach of others (this may include visitors, children, friends, and family). ? Safely dispose of unused prescription opioids: Find your community drug take-back program or your pharmacy mail-back program, or flush them down the toilet, following guidance from the Food and Drug Administration (www.fda.gov/Drugs/ResourcesForYou). ? Visit www.cdc.gov/drugoverdose to learn about the risks of opioids abuse and overdose. ? If you believe you may be struggling with addiction, tell your health healthcare representative and ask for guidance or call [facility]?S National Helpline at 6-906-344-HELP. v Source: [place] (more content not included)... Normal [facility] Discharge Instructionson Discharge Instructions [id number] Normal [facility] ED Clinical Summaryon 2022 ED Clinical Summary (Inserted Image. Lis ble to display) [place] [address] ED Clinical Summary Person Information Name: LUCIAN CONTRERAS[place] Age: 21 Years : 2000 Sex: Female Language: Congolese PCP: NONE, XXXX Marital Status: Single Visit Id: Visit Reason: Abdominal pain - ; APPROX 7 WKS - CRAMPING/TIGHNESS IN ABD Speciality: Acuity: 3 Enc Type: Emergency Med Service: Emergency Arrival: 08/21/2022 19:18:51 Discharge: 08/21/2022 22:54:21 LOS: 000 03:36 Checkin: 08/21/2022 19:18:51 Checkout: 08/21/2022 22:54:21 Dispo Type: Home (Routine DC) EVENTS: Event Name Event Status Request Date/Time Start Date/Time Complete Date/Time Arrive Complete 08/21/2022 19:18:51 08/21/2022 19:18:51 08/21/2022 19:18:51 Document Home Meds Request 08/21/2022 19:18:51 Triage Complete 08/21/2022 19:18:51 08/21/2022 19:27:38 08/21/2022 19:27:38 Bed Assign Complete 08/21/2022 19:23:29 08/21/2022 19:23:29 08/21/2022 19:23:29 Dr Exam Complete 08/21/2022 19:23:29 08/21/2022 19:25:04 08/21/2022 19:25:04 RN Exam Complete 08/21/2022 19:23:29 08/21/2022 19:43:53 08/21/2022 19:43:53 Registration Complete 08/21/2022 19:25:04 08/21/2022 19:27:37 08/21/2022 19:27:37 Reg Complete Request 08/21/2022 19:27:37 Reg Bed Request Complete 08/21/2022 19:27:37 08/21/2022 19:27:37 08/21/2022 19:27:37 Pending Labs Complete 08/21/2022 19:29:29 08/21/2022 19:52:58 Lab Complete 08/21/2022 19:29:29 08/21/2022 19:52:58 Urine Collect Complete 08/21/2022 19:29:29 08/21/2022 19:52:58 US Complete 08/21/2022 19:37:04 08/21/2022 21:10:23 08/21/2022 21:56:05 Pending Labs Complete 08/21/2022 19:37:04 08/21/2022 20:38:30 Blood Collect Request 08/21/2022 19:37:04 Lab Complete 08/21/2022 19:37:04 08/21/2022 20:38:30 Pending Labs Complete 08/21/2022 19:52:00 08/21/2022 19:52:00 08/21/2022 20:06:06 Lab Complete 08/21/2022 19:52:00 08/21/2022 19:52:00 08/21/2022 20:06:06 Pending Labs Complete 08/21/2022 19:55:55 08/21/2022 19:55:55 08/21/2022 19:56:01 Lab Complete 08/21/2022 19:55:55 08/21/2022 19:55:55 08/21/2022 19:56:01 Discharge Complete 08/21/2022 22:45:40 08/21/2022 22:57:31 08/21/2022 22:57:31 Transfer Complete 08/21/2022 22:57:31 08/21/2022 22:57:31 08/21/2022 22:57:31 ADDRESS: [address] [place] [id number] PHYS DOC NOTES: MEDICAL INFORMATION: Prescriptions Given: PATIENT EDUCATION INFORMATION: Instructions: Abdominal Pain During ; First Trimester of Follow up: With: Address: When: Mirela TABOR [facility], [address] [place] [address] [place] [address] Business (1) In 3 days 08/24/2022 Comments: Return to the emergency room if your abdominal pain pain becomes persistent, vaginal bleeding or any new symptom DIAGNOSIS: 1:Abdominal pain; 2: Normal [facility] ED Note-Physicianon 08-23-19 ED Note-Physician Basic Information Time Seen: Ayaan Reed M.D. 08/21/2022 19:25 Chief Complaint Pt reports abd cramping and tightness for 3 days. Pt reports approx 7wks . Denies vaginal bleeding/spotting. LMP 06/03. hx of miscarriage last year. History of Present Illness The patient is a 21-year-old female approximately 7 weeks , G3, who presented to the emergency room with abdominal pain. The patient states for the past 3 to 4 days she has been having cramping and points to the lower abdomen on and off. She states currently feels like a tight. She does have some vaginal discharge which is normal. She denies any vaginal bleeding. She states her last menstrual period was June 03. The patient states she had miscarriage on June last year. The patient denies any burning with urination or blood in urine. The patient denies any other associated symptoms. Review of Systems Additional ROS info: Except as noted in the above Review of Systems and in the History of Present Illness all other systems have been reviewed and are negative or noncontributory. Physical Exam Vitals & Measurements T: 37.1 ?C(Oral) HR: 85(Peripheral) RR: 15 BP: 135/78 SpO2: 99% HT: 168 cm WT: 57 kg BMI: 20.2 General: alert, no acute distress Skin: warm, dry Head: no trauma, normocephalic Neck: Trachea midline Eye: normal conjunctiva, sclera clear Cardiovascular: regular rate and rhythm Respiratory: Lungs CTA, respirations non labored, breath sounds equal Gastrointestinal: soft, non distended, no tenderness, no guarding Extremities: no deformity, no trauma Neurological: Alert and oriented, speech normal, no focal neuro deficits Psychiatric: cooperative, affect appropriate for age, Procedure [ x] The patient is and presents with abdominal pain or vaginal bleeding. A trans-abdominal or trans-vaginal ultrasound was performed and the location is documented. [SATISFIES MIPS PERFORMANCE] [ ] The patient is pregant and presents with abdominal pain or vaginal bleeding. A trans-abdominal or trans-vaginal ultrasound was NOT performed because [] (ex. patient has visited the ED multiple times in the last 72 hours, patient has documented intrauterine ) [MIPS PERFORMANCE EXCEPTION/EXCLUSION] [ ] The patient is pregant and presents with abdominal pain or vaginal bleeding. A trans-abdominal or trans-vaginal ultrasound was NOT performed, no reason documented. [DOES NOT SATISFY MIPS PERFORMANCE] Medical Decision Making MEDICAL DECISION MAKING Number and Complexity of Problems Differential Diagnosis: [] [facility] Data External documents reviewed: [] My EKG interpretation: [] My CT interpretation: [] My X-ray interpretation: [] My Ultrasound interpretation: [] Decision rules/scores evaluated: [] Discussed with: [] Treatment and Disposition ED Course: The patient presented with abdominal pain. Her abdominal pain has been on and off. She denies any vaginal bleeding. Her abdomen is soft nontender whatsoever. Beta-hCG is 54,416. The pelvic ultrasound revealed single live intra urine consistent with 6 weeks and 4 days. heart tones 129 bpm. Pelvic exam deferred. Will discharge patient home follow-up with her OB. She is instructed to return to the emergency room if her pain becomes persistent, vaginal bleeding or any new symptoms. Shared decision making: [] Code status: [] Assessment/Plan 1. Abdominal pain (R10.9: Unspecified abdominal pain) 2. (Z34.90: Encounter for supervision of normal , unspecified, unspecified trimester) Orders: ABO/Rh Automated Diff Basic Metabolic Panel Beta hCG Quantitative CBC w/ Auto Diff eGFR PT & PTT UA With Cult Reflex US 1st Trimester Disposition Plan Patient Discharge Condition Stable Discharge Disposition Discharged home Discharge Prescription List Prescriptions No active prescription medications Follow-up With When Contact Information Mirela TABOR In 3 days 08/24/[address] [place] [address]- Business (1) Additional Instructions: Return to the emergency room if your abdominal pain pain becomes persistent, vaginal bleeding or any new symptom Patient Education Abdominal Pain During First Trimester of Problem List/Past Medical History Ongoing No qualifying data Historical No qualifying data Medications Inpatient No active inpatient medications Home No active home medications Allergies No Known Medication Allergies Social History Alcohol - Denies Alcohol Use, 08/21/2022 Substance Abuse - Denies Substance Abuse, 08/21/2022 Tobacco - Denies Tobacco Use, 08/21/2022 Lab Results WBC: 7.2 E9/L (08/21/22 19:49:00) RBC: 4.1 E12/L Low (08/21/22 19:49:00) HGB: 12.4 gm/dL (08/21/22 19:49:00) Hct: 36.9 % (08/21/22 19:49:00) MCV: 90.8 fL (08/21/22 19:49:0 (more content not included)... Normal [facility] Comment on above: Result Comment: Elec tronically Signed By: Brianna Adams, Ayaan Cardenas\.br\Date and Time Signed: 08/21/22 22:57 EDT ED Patient Education Noteon 08-22-2022 ED Patient Education Note Obstetrics and Gynecology Abdominal Pain During Abdominal pain is common during and has many possible causes. Some causes are more serious than others, and sometimes the cause is not known. Abdominal pain can be a sign that labor is starting. It can also be caused by normal growth of your baby causing stretching of muscles and ligaments during . Always tell your health care provider if you have any abdominal pain. Follow these instructions at home: ? Do not have sex or put anything in your vagina until your pain goes away completely. ? Get plenty of rest until your pain improves. ? Drink enough fluid to keep your urine pale yellow. ? Take gzit-cpb-kgktkmh and prescription medicines only as told by your health care provider. ? Keep all follow-up visits. This is important. Contact a health care provider if: ? Your pain continues or gets worse after resting. ? You have lower abdominal pain that: ? Comes and goes at regular intervals. ? Spreads to your back. ? Is similar to menstrual cramps. ? You have pain or burning when you urinate. Get help right away if: ? You have a fever, chills, or shortness of breath. ? You have vaginal bleeding. ? You are leaking fluid or passing tissue from your vagina. ? You have vomiting or diarrhea that lasts for more than 24 hours. ? Your baby is moving less than usual. ? You feel very weak or faint. ? You develop severe pain in your upper abdomen. Summary ? Abdominal pain is common during and has many possible causes. ? If you experience abdominal pain during , tell your health care provider right away. ? Follow your health care provider's home care instructions and keep all follow-up visits as told. This information is not intended to replace advice given to you by your health care provider. Make sure you discuss any questions you have with your health care provider. Document Revised: 12/04/2020 Document Reviewed: 12/04/2020 [employer] Patient Education ? 2022 [place]. First Trimester of The first trimester of starts on the first day of your last menstrual period until the end of week 12. This is months 1 through 3 of . A week after a sperm fertilizes an egg, the egg will implant into the wall of the uterus and begin to develop into a baby. By the end of 12 weeks, all the baby's organs will be formed and the baby will be 2?3 inches in size. Body changes during your first trimester Your body goes through many changes during . The changes vary and generally return to normal after your baby is born. Physical changes ? You may gain or lose weight. ? Your breasts may begin to grow larger and become tender. The tissue that surrounds your nipples (areola) may become darker. ? Dark spots or blotches (chloasma or mask of ) may develop on your face. ? You may have changes in your hair. These can include thickening or thinning of your hair or changes in texture. Health changes ? You may feel nauseous, and you may vomit. ? You may have heartburn. ? You may develop headaches. ? You may develop constipation. ? Your gums may bleed and may be sensitive to brushing and flossing. Other changes ? You may tire easily. ? You may urinate more often. ? Your menstrual periods will stop. ? You may have a loss of appetite. ? You may develop cravings for certain kinds of food. ? You may have changes in your emotions from day to day. ? You may have more vivid and strange dreams. Follow these instructions at home: Medicines ? Follow your health care provider's instructions regarding medicine use. Specific medicines may be either safe or unsafe to take during . Do not take any medicines unless told to by your health care provider. ? Take a vitamin that contains at least 600 micrograms (mcg) of folic acid. Eating and drinking ? Eat a healthy diet that includes fresh fruits and vegetables, whole grains, good sources of protein such as meat, eggs, or tofu, and low-fat dairy products. ? Avoid raw meat and unpasteurized juice, milk, and cheese. These carry germs that can harm you and your baby. ? If you feel nauseous or you vomit: ? Eat 4 or 5 small meals a day instead of 3 large meals. ? Try eating a few soda crackers. ? Drink liquids between meals instead of during meals. ? You may need to take these actions to prevent or treat constipation: ? Drink enough fluid to keep your urine pale yellow. ? Eat foods that are high in fiber, such as beans, whole grains, and fresh fruits and vegetables. ? Limit foods that are high in fat and processed sugars, such as fried or sweet foods. Activity ? Exercise only as directed by your health care provider. Most people can continue their usual exercise routine during . Try to exercise for 30 minutes at least 5 days a week. ? Stop exercising (more content not included)... Normal [facility] ED Patient Summaryon 023 ED Patient Summary [address] [address] Patient Discharge Instructions Person Information Name: LUCIAN CONTRERAS Age: 21 Years Arrival Date: 08/21/2022 19:18:51 Discharge Diagnosis: 1:Abdominal pain; 2: Primary Care Physician: NONE, XXXX Provider Information Primary Provider: Brianna Adams, Ayaan Cardenas Advanced Housekeeper And Laundry Assistant:None The exam and treatment you received in the Emergency Department were for an urgent problem and are not intended as complete care. It is important that you follow up with a doctor, nurse practitioner, or physician?s trust operations assistant for ongoing care. If your symptoms become worse or you do not improve as expected and you are unable to reach your usual health care provider, you should return to the Emergency Department. We are available 24 hours a day. LUCIAN CONTRERAS has been given the following list of patient education materials, prescriptions and follow-up instructions: Follow-up Instructions: With: Address: When: Mirela [facility], [address] [place] [address] , [place] [address] Business (1) In 3 days 08/24/2022 Comments: Return to the emergency room if your abdominal pain pain becomes persistent, vaginal bleeding or any new symptom In the event that this physician does not participate in your insurance network, please consult with your insurance company to find a nearby participating provider. Patient Education Materials: Abdominal Pain During ; First Trimester of A MESSAGE TO ALL PATIENTS REGARDING OPIOIDS PRESCRIPTION OPIOIDS: WHAT YOU NEED TO KNOW Prescription opioids can be used to help relieve vfoydytg-to-rxgelb pain and are often prescribed following a surgery or injury, or for certain health conditions. These medications can be an important part of the treatment but also come with serious risks. It is important to work with your healthcare provider to make sure you are getting the safest, most effective care. WHAT ARE THE RISKS AND SIDE EFFECTS OF OPIOID USE? Prescription opioids carry serious risks of addiction and overdose, especially with prolonged use. An opioid overdose, often marked by slowed breathing, can cause sudden . The use of prescription opioids can have a number of side effects as well, even when taken as directed: ? Tolerance?meaning you might need to take more of the medication for the same pain relief ? Physical dependence?meaning you have symptoms of withdrawal when a medication is stopped ? Increased sensitivity to pain ? Constipation ? Nausea, vomiting, and dry mouth ? Sleepiness and dizziness ? Confusion ? Depression ? Low levels of testosterone that can result in lower sex drive, energy, and strength ? Itching and sweating RISKS ARE GREATER WITH: ? History of drug misuse, substance use disorder, or overdose ? Mental health conditions (such as depression or anxiety) ? Sleep apnea ? Older age (65 years and older) ? Avoid alcohol while taking prescription opioids. Also, unless specifically advised by your health care provider, medications to avoid include: ? Benzodiazepines (such as Xanax or Valium) ? Muscle relaxants (such as Soma or Flexeril) ? Hypnotics (such as Ambien or Lunesta) ? Other prescription opioids KNOW YOUR OPTIONS Talk to your health care provider about ways to manage your pain that don?t involve prescription opioids. Some of these options may actually work better and have fewer risks and side effects. Options may include: ? Pain relievers such as acetaminophen, ibuprofen, and naproxen ? Some medication that are also used for depression or seizures ? Physical therapy and exercise ? Cognitive behavioral therapy, a psychological, goal-directed approach, in which patients learn how to modify physical, behavioral, and emotional triggers of pain and stress. IF YOU ARE PRESCRIBED OPIOIDS FOR PAIN: ? Never take opioids in greater amounts or more often than prescribed. ? Follow up with your primary health care provider. o Work together to create a plan on how to manage your pain. o Talk about ways to help manage your pain that don?t involve prescription opioids. o Talk about any and all concerns and side effects. ? Help prevent misuse and abuse o Never sell or share prescription opioids. o Never use another person?s prescription opioids. ? Store prescription opioids in a secure place and out of reach of others (this may include visitors, children, friends, and family). ? Safely dispose of unused prescription opioids: Find your community drug take-back program or your pharmacy mail-back program, or flush them down the toilet, following guidance from the Food and Drug Administration (www.fda.gov/Drugs/ResourcesForYou). ? Visit www.cdc.gov/drugoverdose to learn about the risks of opioids abuse and overd (more content not included)... Normal [facility] US 1st Trimesteron 08-22-2022 US 1st Trimester Exam Date/Time: 08/21/2022 21:56 EDT Reason for Exam: Pelvic pain;Other (please specify) Report IMPRESSION: SINGLE LIVE INTRAUTERINE CORRESPONDING TO Composite Ultrasound Age: 6 weeks, 4 days, +/- 1 week. NO OTHER FINDINGS OF CONCERN IDENTIFIED. EXAM: US 1st Trimester DATE: 08/21/2022 CLINICAL HISTORY: Pelvic pain. COMPARISON: None available. TECHNIQUE: Transabdominal ultrasound was performed of the pelvis. FINDINGS: An approximately 2 cm mildly elongated gestational sac is present within the central aspect of the uterine body/fundus, without significant surrounding subchorionic hemorrhage. Windber Rump Length: 0.7 cm, which corresponds Composite Ultrasound Age: 6 weeks, 4 days, +/- 1 week. The estimated date of delivery by measurements is: DONNA from average ultrasound age: 0104/12/2023. The cervix and lower uterine segment appears closed and otherwise unremarkable. cardiac activity measures approximately 129 bpm, without visualized arrhythmia. There is no significant free fluid, or other findings of concern identified. The left ovary appears within normal limits. The right ovary is not visualized presumably secondary to overlying bowel gas. The uterus measurements and an estimated volume are: Uterus Length: 9.6 cm Uterus Width: 5.0 cm Uterus Height: 5.5 cm Uterus Volume: 137.2 cm3 Report The left ovary measurements and estimated volume are: Left Ovary Length: 2.5 cm Left Ovary Width: 2.6 cm Left Ovary Height: 2.9 cm Left Ovary Volume: 9.4 cm3 Ordering Provider: Ayaan Reed FINAL REPORT Dictated: 08/22/2022 10:26 am Tex Isaacs MD Signed (Electronic Signature): 08/22/2022 10:26 am Signed by: Tex Isaacs MD Transcribed by: CLARY Technologist: LIANG Technical Comments Unknown History 3 Para 1 SAB 1 FHR (bpm) 129 Windber Rump Length (in cm) 0.65 Normal [facility] ABO/Rhon 08-21-2022 ABO/Rh Negative Invalid Interpretation Code [facility] Comment on above: Performed By: #### 2 [id number] ####[facility] [address] [place] [address] Auto Diffon 08-21-2022 Basophils/100 WBC (Bld) 0.5 % Normal 0.0-2.0 [facility] Comment on above: Order Comment: Order Added by Discern Expert. Performed By: #### 1 [id number], [id number], 0642435, 0942926, 0520676 ####[facility] [address] [place] [address] Basophils/Leukocytes Auto (B ld) [Pure # fraction] 0.0 E9/L Normal 0.0-0.2 [facility] Comment on above: Order Comment: Order Added by Discern Expert. Performed By: #### 1 5786559, 77521725, 0827486, 4583037, 4314181 ####[address] [place] [address] Eosinophils/100 WBC (Bld) 0.5 % Normal 0.0-8.0 [facility] Comment on above: Order Comment: Order Added by Discern Expert. Performed By: #### 1 8691606, 35374735, 9196314, 2981426, 1889842 ####[address] [address] Eosinophils/Leukocytes Auto (Bld) [Pure # fraction] 0.0 E9/L Normal 0.0-0.[address] [facility] Comment on above: Order Comment: Order Added by Discern Expert. Performed By: #### 1 2412046, 93526626, 5045357, 1358733, 1241751 ####[address] [address] Lymphocytes/100 WBC (Bld) 15.7 % Normal 14.0-50.0 [facility] Comment on above: Order Comment: Order Added by Discern Expert. Performed By: #### 1 4734593, 93842958, 3091080, 7885937, 8946842 ####[address] [address] Lymphocytes/Leukocytes Auto (Bld) [Pure # fraction] 1.1 E9/L Normal 1.0-4.[address] [facility] Comment on above: Order Comment: Order Added by Discern Expert. Performed By: #### 1 6338863, 58282905, 0507135, 8242701, 3632508 ####[address] [address] Monocytes/100 WBC (Bld) 4.7 % Normal 4.0-14.0 [facility] Comment on above: Order Comment: Order Added by Discern Expert. Performed By: #### 1 3236987, 73558611, 9757415, 3162336, 8361634 ####[facility] [address] [place] [address] Monocytes/Leukocytes Auto (B ld) [Pure # fraction] 0.3 E9/L Normal 0.2-1.0 [facility] Comment on above: Order Comment: Order Added by Discern Expert. Performed By: #### 1 1916900, 35153239, 0692793, 5207877, 9485167 ####[facility] [address] [place] [address] Neutrophils/100 WBC (Bld) 78.6 % High 36.0-75.0 [facility] Comment on above: Order Comment: Order Added by Discern Expert. Performed By: #### 1 4787468, 82910599, 8308058, 7953927, 9974420 ####[facility] [address] [place] [address] Neutrophils/Leukocytes Auto (Bld) [Pure # fraction] 5.7 E9/L Normal 2.0-7.[address] [facility] Comment on above: Order Comment: Order Added by Discern Expert. Performed By: #### 1 5449133, 74550004, 8829902, 3264853, 0732633 ####[facility] [address] [place] [address] BMPon 08-21-2022 Creatinine [Mass/Vol] 0.7 mg/dL Normal 0.5-1.3 [facility] Comment on above: Performed By: #### 1 5365415, 69564421, 0255478, 0775750, 8544372 ####[facility] [address] [place] [address] Urea nitrogen [Mass/Vol] 8 mg/dL Normal 5-21 [facility] Comment on above: Performed By: #### 1 7591275, 64951290, 8226083, 3638968, 9616394 ####[facility] [address] [place] [address] Urea nitrogen/Creatinine [Ma ss ratio] 11 No Units Normal 10-20 [facility] Comment on above: Performed By: #### 1 3934708, 98113191, 2542564, 0737067, 3591775 ####[facility] [address] [place] [address] Anion gap [Moles/Vol] 15 mmol/L Normal 6-16 [facility] Comment on above: Performed By: #### 1 7470346, 61508600, 4019953, 3664011, 3024009 ####[facility] [address] [place] [address] Calcium [Mass/Vol] 9.1 mg/dL Normal 8.9-11.1 [facility] Comment on above: Performed By: #### 1 0996249, 39238273, 8794069, 3322323, 9010401 ####[facility] [address] [place] [address] Chloride [Moles/Vol] 102 mmol/L Normal 101-111 [facility] Comment on above: Performed By: #### 1 2705792, 12979675, 8097733, 0073719, 3606181 ####[facility] [address] [place] [address] CO2 [Moles/Vol] 23 mmol/L Normal 21-31 [facility] Comment on above: Performed By: #### 1 7135082, 40484585, 2682977, 2459486, 4668520 ####[facility] [address] [address] Glucose [Mass/Vol] 92 mg/dL Normal 55-199 [facility] Comment on above: Result Comment: If t his glucose result represents a fasting glucose, interpretation should refer to the following reference range: 55-99 mg/dL Performed By: #### 1 7017802, 84218706, 2743136, 8158272, 3911378 ####[facility] [address] [place] [address] Potassium [Moles/Vol] 3.5 mmol/L Normal 3.5-5.3 [facility] Comment on above: Performed By: #### 1 4680014, 70283578, 7765341, 6634687, 3470384 ####[facility] [address] [place] [address] Sodium [Moles/Vol] 136 mmol/L Normal 135-145 [facility] Comment on above: Performed By: #### 1 0991112, 66521481, 0917433, 1603100, 8515206 ####[facility] [address] [place] [address] BhCG Quanton 08-21-2022 [place] [address] m[IU]/mL High 1-3 [facility] Comment on above: Result Comment: GEST ATIONAL AGE HCG RANGE (mIU/mL) NON- <1-3 0.2-1 WEEKS 5-50 1-2 WEEKS 50-500 2-3 WEEKS 100-5,000 3-4 WEEKS 500-10,000 4-5 WEEKS 1,000-50,000 5-6 WEEKS 10,000-100,000 6-8 WEEKS 15,000-200,000 8-12 WEEKS 10,000-100,000 Performed By: #### 2 518858 ####[address] [place] [address] CBC w/ Auto Diffon Erythrocyte distribution wid th (RBC) [Ratio] 12.3 % Normal 10.9-14.2 [facility] Comment on above: Performed By: #### 1 8922222, 01710787, 3349698, 0118555, 0003613 ####[facility] [address] [place] [address] Hematocrit (Bld) [Volume fraction] 36.9 % Normal 34.0-46.0 [facility] Comment on above: Performed By: #### 1 8932114, 23068582, 4134741, 3514567, 1451085 ####[facility] [address] [place] [address] Hemoglobin (Bld) [Mass/Vol] 12.4 g/dL Normal 12.0-16. 0 [facility] Comment on above: Performed By: #### 1 9972935, 32959260, 1555427, 4156547, 4840459 ####[facility] [address] [place] [address] MCH (RBC) [Entitic mass] 30.4 pg Normal 27.0-34.0 [facility] Comment on above: Performed By: #### 1 3809913, 51536376, 0485477, 0056400, 7283146 ####[address] [address] MCHC (RBC) [Mass/Vol] 33.5 g/dL Normal 31.4-36.0 [facility] Comment on above: Performed By: #### 1 5776249, 79931449, 3953540, 7252278, 1755058 ####[facility] [address] [place] [address] MCV (RBC) [Entitic vol] 90.8 fL Normal 80.0-100.0 [facility] Comment on above: Performed By: #### 1 7196801, 97225592, 5405699, 4657042, 8503231 ####[facility] [address] [place] [address] Platelet mean volume (Bld) [Entitic vol] 9.1 fL Normal 6.4-10.8 [facility] Comment on above: Performed By: #### 1 8540066, 20109368, 1599632, 6012745, 1867110 ####[facility] [address] [place] [address] Platelets (Bld) [#/Vol] 224.0 E9/L Normal 150.0-500.0 [facility] Comment on above: Performed By: #### 1 9905881, 58689504, 6205076, 5216928, 3762202 ####[facility] [address] [place] [address] RBC (Bld) [#/Vol] 4.1 E12/L Low 4.3-5.9 [facility] Comment on above: Performed By: #### 1 4543921, 07633150, 8054281, 3790600, 3778758 ####[facility] [address] [place] [address] WBC corrected for nucl RBC A uto (Bld) [#/Vol] 7.2 E9/L Normal 4.0-11.0 [facility] Comment on above: Performed By: #### 1 1332725, 70271594, 5651068, 6722633, 5425882 ####[facility] [address] [place] [address] Consent for Treatmenton 08-04 Consent for Treatment [id number] Normal [facility] PT & PTTon 08-21-2022 aPTT Coag (PPP) [Time] 36.1 second(s) Normal 25.1-36.5 [facility] Comment on above: Result Comment: Para meter 15 days - 4 weeks 1 - 5 months 6 - 11 months 1 - 5 years 6 - 10 years 11 - 17 years PTT Mean: 35.4 (27.6-45.6) Mean: 33.5 (24.8-40.7) Mean: 32.4 (25.1-40.7) Mean: 31.6 (24.0-39.2) Mean: 31.6 (26.9-38.7) Mean: 31.0 (24.6-38.4) Pediatric Reference ranges were obtained from a study by Frankie Durán et al. prepared from 1437 samples obtained at 7 different centers using the same coagulation reagent and instrumentation as [facility]. Currently there are no coagulation studies available worldwide for children to 14 days, and no normal ranges. Heparin therapeutic range (represented by Anti-Factor Xa activity of 0.2 - 0.4 U/mL) corresponds to PTT of 56.6 - 109.0 sec. Performed By: #### 1 8904685, 81414927, 6985368, 5721029, 4335670 ####[facility] [address] [place] [address] INR Coag (PPP) [Relative time] 1.1 {INR} Invalid Interpretation Code [facility] Comment on above: Result Comment: INR results are specifically intended to assess patients stabilized on long-term Anticoagulation therapy suggested INR?s ?Less Intensive Anticoagulation? 2.0 ? 3.0 Conventional Range 3.0 ? 4.5 Performed By: #### 1 8703673, 19714583, 8568432, 4389223, 1807000 ####[facility] [address] [place] [address] PT Coag (PPP) [Time] 12.2 second(s) Normal 9.4-12.5 [facility] Comment on above: Result Comment: 15 d ays - 4 weeks 1 - 5 months 6 -11 months 1- 5 years 6-10 years 11 -17 years Mean: 11.2 (9.5-12.6) Mean: 11.0 (9.7-12.8) Mean: 11.0 (9.8-13.0) Mean: 11.3 (9.9-13.4) Mean: 11.7 (10.0-14.6) Mean: 11.8 (10.0 - 14.1) Pediatric Reference ranges were obtained from a study by Frankie Durán et al. prepared from 1437 samples obtained at 7 different centers using the same coagulation reagent and instrumentation as [facility]. Currently there are no coagulation studies available worldwide for children to 14 days, and no normal ranges. Performed By: #### 1 1636624, 56009189, 6860502, 2115921, 4492488 ####[facility] [address] [place] [address] UA With Cult Reflexon 2022 Bacteria LM Ql (Urine sed) 1+ /HPF Abnormal Trace [facility] Comment on above: Performed By: #### 1 6055502 ####[facility] [address] [place] [address] Crystals LM Ql (Urine sed) Present Normal [facility] Comment on above: Performed By: #### 1 5143405 ####[facility] [address] [place] [address] Epithelial cells.squamous LM .HPF (Urine sed) [#/Area] 0-2 Normal 0-2 [facility] Comment on above: Performed By: #### 1 4159368 ####[address] [address] Joppa.plasma/Joppa.RBC (Bld) [Mass ratio] 0-3 N ormal 0-3 [facility] Comment on above: Performed By: #### 1 6223542 ####[address] [address] Mucus Ql (Urine sed) 1+ Normal [facility] Comment on above: Performed By: #### 1 0092871 ####[address] [address] WBC LM.HPF (Urine sed) [#/Area] 0-5 Normal 0-5 [facility] Comment on above: Performed By: #### 1 7720004 ####[address] [address] Bilirubin Ql (U) Negative Normal Negative [facility] Comment on above: Performed By: #### 1 4230077 ####[address] [address] Clarity (U) CLEAR Normal Clear [facility] Comment on above: Performed By: #### 1 1300423 ####[address] [place] [address] Color (U) YELLOW Normal Yellow [facility] Comment on above: Performed By: #### 1 6626632 ####[address] [address] Glucose Test strip (U) [Mass/Vol] Negative Normal Negative [facility] Comment on above: Performed By: #### 1 5099715 ####[address] [place] [address] Hemoglobin Ql (U) Negative Normal Negative [facility] Comment on above: Performed By: #### 1 2961859 ####[address] [address] Ketones (U) [Mass/Vol] 3+ Abnormal Negative [facility] Comment on above: Performed By: #### 1 5416691 ####[address] [address] Nitrite Ql (U) Negative Normal Negative [facility] Comment on above: Performed By: #### 1 7141324 ####[address] [address] pH (U) 6.5 [pH] Invalid Interpretation Code 5.0-9.0 [facility] Comment on above: Performed By: #### 1 5586070 ####[address] [address] Protein (U) [Mass/Vol] Negative Normal Negative [facility] Comment on above: Performed By: #### 1 6692471 ####[address] [address] Specific gravity (U) [Rel density] 1.025 Invalid Interpretation Code 1.005-1.030 [facility] Comment on above: Performed By: #### 1 4068225 ####[address] [address] Type of Urine collection method Clean Catch Normal [facility] Comment on above: Performed By: #### 1 0021865 ####[address] [address] Urobilinogen Qn (U) 0.2 {Bradly'U}/dL Normal 0.0-1.0 [facility] Comment on above: Performed By: #### 1 3492468 ####[address] [address] WBC Auto Ql (U) TRACE Abnormal Negative [facility] Comment on above: Performed By: #### 1 4490517 ####[facility] [address] [place] [address] eGFRon 08-21-2022 GFR/1.73 sq M.predicted wali g non-blacks MDRD (S/P/Bld) [Vol rate/Area] 126 mL/min/1.73 m2 Normal >=59 [facility] Comment on above: Order Comment: Order added by Discern Expert. Result Comment: [employer] Tender shonna kidney disease could be indicated at eGFR's of less than 60 mL/min/1.73m2. Kidney failure is indicated at less than 15 mL/min/1.73m2. Performed By: #### 1 4307118, 55661038, 6267457, 2263875, 2718568 ####[facility] [address] [place] [address] XR HAND RT MIN 3Von 04-18-19 23 XR HAND RT MIN 3V EXAM: XR HAND RT MIN 3V HISTORY: Pain COMPARISON: None. TECHNIQUE: 3 views of the right hand FINDINGS: No acute fracture is seen. Joint alignment is normal. Joint spaces are preserved. Soft tissues appear unremarkable. IMPRESSION: No acute fracture or malalignment. Electronically authenticated by: MONI PIERCE Date: 2022-04-18 00:18 Normal [facility] URINE PROFILEon 2 Bilirubin Ql (U) Negative Normal NEGATIVE The [facility] Comment on above: Performed By: #### U MICRO, ERUR, PREGU #### [facility] [address] [place] [address] Dr. Bill Gan Clarity (U) CLEAR Normal CLEAR [facility] Comment on above: Performed By: #### U MICRO, ERUR, PREGU #### [facility] [address] [place] [address] Dr. Bill Gan Color (U) YELLOW Normal YELLOW [facility] Comment on above: Performed By: #### U MICRO, ERUR, PREGU #### [facility] [address] [place] [address] Dr. Bill Gan ERUAHD A micrscopic examina tion will be performed if indicated. Normal [facility] Comment on above: Performed By: #### U MICRO, ERUR, PREGU #### [facility] [address] [address] [address] Bill Gan Glucose Ql (U) Negative Normal NEGATIVE [facility] Comment on above: Performed By: #### U MICRO, ERUR, PREGU #### [facility] [address] [address] [address] Bill Gan Hemoglobin Ql (U) Negative Normal NEGATIVE [facility] Comment on above: Performed By: #### U MICRO, ERUR, PREGU #### [facility] [address] [address] [address] Bill Gan Ketones Ql (U) Negative Normal NEGATIVE [facility] Comment on above: Performed By: #### U MICRO, ERUR, PREGU #### [facility] [address] [address] [address] Bill Gan LEUKOCYTES Negative Normal NEGATIVE [facility] Comment on above: Performed By: #### U MICRO, ERUR, PREGU #### [facility] [address] [address] [address] Bill Gan Nitrite Ql (U) Negative Normal NEGATIVE [facility] Comment on above: Performed By: #### U MICRO, ERUR, PREGU #### [facility] [address] [address] [address] Bill Gan pH (U) 7.5 [pH] Normal 5-9 [facility] Comment on above: Performed By: #### U MICRO, ERUR, PREGU #### [facility] [address] [address] [address] Bill Gan Protein (U) [Mass/Vol] 100 mg/dL Abnormal NEGATIVE/ TRA CE [facility] Comment on above: Performed By: #### U MICRO, ERUR, PREGU #### [facility] [address] [address] [address] Bill Gan SPEC GRAVITY 1.020 Normal 1.005-<=1.025 [facility] Comment on above: Performed By: #### U MICRO, ERUR, PREGU #### [facility] [address] [address] [address] Bill Gan UR MICRO IND INDICATED Normal [facility] Comment on above: Performed By: #### U MICRO, ERUR, PREGU #### [facility] [address] [place] [address] Dr. Bill Gan Urobilinogen Qn (U) 2.0 {Bradly'U}/dL Abnormal 0.2 - 1. 0 [facility] Comment on above: Performed By: #### U MICRO, ERUR, PREGU #### [facility] [address] [place] [address] Dr. Bill Gan URon 02-14-2022 , QUAL Negative Normal NEGATIVE [facility] Comment on above: Performed By: #### U MICRO, ERUR, PREGU #### [facility] [address] [place] [address] Dr. Bill Gan URINE MICROSCOPIC ONLYon BACTERIA NONE SEEN Normal NONE SEEN [facility] Comment on above: Performed By: #### U MICRO, ERUR, PREGU #### [facility] [address] [place] [address] Dr. Bill Gan Bacteria identified Cx Nom (U) NOT INDICATED Normal [facility] Comment on above: Performed By: #### U MICRO, ERUR, PREGU #### [facility] [address] [place] [address] Dr. Bill Gan CAST NONE SEEN Normal NONE SEEN [facility] Comment on above: Performed By: #### U MICRO, ERUR, PREGU #### [facility] [address] [place] [address] Dr. Bill Gan Crystals LM Nom (Urine sed) NONE SEEN Normal NONE SEE N [facility] Comment on above: Performed By: #### U MICRO, ERUR, PREGU #### [facility] [address] [place] [address] Dr. Bill Gan Epithelial cells LM Ql (Urin e sed) MODERATE Abnormal NONE SEEN /RARE The [facility] pital Comment on above: Performed By: #### U MICRO, ERUR, PREGU #### [facility] [address] [address] [address] Bill Gan MUCOUS NONE SEEN Normal NONE SEEN [facility] Comment on above: Performed By: #### U MICRO, ERUR, PREGU #### [facility] [address] [address] [address] Bill Gan RBC NONE SEEN Abnormal 0-2 [facility] Comment on above: Performed By: #### U MICRO, ERUR, PREGU #### [facility] [address] [address] [address] Bill Gan WBC NONE SEEN Normal NONE SEEN [facility] Comment on above: Performed By: #### U MICRO, ERUR, PREGU #### [facility] [address] [address] [address] Bill Gan ABO/RH Typeon 06-05-2021 ABO and Rh group Nom (Bld) Blood group A Rh(D) negative Normal [facility] Comment on above: Result Comment: PERF ORMED BY: [place] [address] PATHOLOGIST MEDICAL CERTIFICATION SPECIALIST BON ZAYAS M.D. Basic Metabolic Panelon 03-0 Calcium [Mass/Vol] 8.8 mg/dL Normal 8.2-10.2 [facility] Comment on above: Performed By: #### C BC, BMP, HCGQNT #### [facility] [address] [place] [address] [place] Chloride [Moles/Vol] 105 mmol/L Normal 95-114 [facility] Comment on above: Performed By: #### C BC, BMP, HCGQNT #### [facility] [address] [place] [address] [place] CO2 [Moles/Vol] 23.8 mmol/L Normal 22.0-30.0 [facility] Comment on above: Performed By: #### C BC, BMP, HCGQNT #### [facility] [address] Creatinine [Mass/Vol] 0.75 mg/dL Normal 0.44-1.03 [facility] Comment on above: Performed By: #### C BC, BMP, HCGQNT #### [facility] [address] [place] [address] [place] Creatinine Clr Calc Pharmacy 101.10 [facility] Comment on above: Performed By: #### C BC, BMP, HCGQNT #### [facility] [address] [place] [address] [place] Estimated GFR ( Chasity > 60 [facility] Comment on above: Result Comment: GFR estimated reference range: According to KDOQI guidelines, <60 ml/min/1.73m2 is sufficient to diagnose a patient with chronic kidney disease. Performed By: #### C BC, BMP, HCGQNT #### [facility] [address] Estimated GFR (Non- Am > 60 [facility] Comment on above: Performed By: #### C BC, BMP, HCGQNT #### [facility] [address] Glucose [Mass/Vol] 93 mg/dL Normal 70-100 [facility] Comment on above: Result Comment: [place] Glucose Reference Range is dependent on time and content of last meal. Glucose of more than 200 mg/dL in a nonstressed, ambulatory subject supports the diagnosis of Diabetes Mellitus. ADA recommended reference range Performed By: #### C BC, BMP, HCGQNT #### [facility] [address] Potassium [Moles/Vol] 3.6 mmol/L Normal 3.5-5.1 [facility] Comment on above: Performed By: #### C BC, BMP, HCGQNT #### [facility] [address] Sodium [Moles/Vol] 136 mmol/L Normal 136-146 [facility] Comment on above: Performed By: #### C BC, BMP, HCGQNT #### [facility] [address] Urea nitrogen [Mass/Vol] 8 mg/dL Low - [facility] Comment on above: Performed By: #### C BC, BMP, HCGQNT #### [address] Complete Blood Count Auto Di ffon 06-05-2021 Basophils (Bld) [#/Vol] 0.1 10*3/uL Normal 0.0-0.2 [facility] Comment on above: Result Comment: PERF ORMED BY: [place] [address] PATHOLOGIST MEDICAL CERTIFICATION SPECIALIST BON ZAYAS M.D. Performed By: #### C BC, BMP, HCGQNT #### [address] Basophils/100 WBC (Bld) 1.3 % Normal . [facility] Comment on above: Performed By: #### C BC, BMP, HCGQNT #### [facility] [address] [place] [address] Eosinophils (Bld) [#/Vol] 0.1 10*3/uL Normal 0.0-0.45 [facility] Comment on above: Performed By: #### C BC, BMP, HCGQNT #### [address] Eosinophils/100 WBC (Bld) 2.2 % Normal . [facility] Comment on above: Performed By: #### C BC, BMP, HCGQNT #### [facility] [address] [place] [address] Erythrocyte distribution wid th (RBC) [Ratio] 12.8 % Normal 11.9-15.3 [facility] Comment on above: Performed By: #### C BC, BMP, HCGQNT #### [address] Hematocrit (Bld) [Volume fraction] 36.8 % Normal 34.0-46.4 [facility] Comment on above: Performed By: #### C BC, BMP, HCGQNT #### [address] Hemoglobin (Bld) [Mass/Vol] 12.3 g/dL Normal 11.8-15. 4 [facility] Comment on above: Performed By: #### C BC, BMP, HCGQNT #### [address] Lymphocytes (Bld) [#/Vol] 2.5 10*3/uL Normal 1.00-4.8 [facility] Comment on above: Performed By: #### C BC, BMP, HCGQNT #### [address] Lymphocytes/100 WBC (Bld) 39.4 % Normal . [facility] Comment on above: Performed By: #### C BC, BMP, HCGQNT #### [address] MCH (RBC) [Entitic mass] 30.6 pg Normal 24.7-34.3 [facility] Comment on above: Performed By: #### C BC, BMP, HCGQNT #### [address] MCV (RBC) [Entitic vol] 91.3 fL Normal 80-100 [facility] Comment on above: Performed By: #### C BC, BMP, HCGQNT #### [address] Mean Corpuscular HGB Conc 33.6 g/dL Normal 32.0-35.0 [facility] Comment on above: Performed By: #### C BC, BMP, HCGQNT #### [address] Monocytes (Bld) [#/Vol] 0.3 10*3/uL Normal 0.0-0.8 [facility] Comment on above: Performed By: #### C BC, BMP, HCGQNT #### [place] [address] [place] Monocytes/100 WBC (Bld) 4.8 % Normal . [facility] Comment on above: Performed By: #### C BC, BMP, HCGQNT #### [facility] [address] [place] [address] [place] Neutrophils (Bld) [#/Vol] 3.3 10*3/uL Normal 1.8-7.7 [facility] Comment on above: Performed By: #### C BC, BMP, HCGQNT #### [facility] [address] Neutrophils/100 WBC (Bld) 52.3 % Normal . [facility] Comment on above: Performed By: #### C BC, BMP, HCGQNT #### [facility] [address] [place] [address] [place] Nucleated RBC/100 WBC (Bld) [Ratio] 0.0 % Normal 0-0.5 [facility] Comment on above: Performed By: #### C BC, BMP, HCGQNT #### [facility] [address] [place] [address] [place] Platelet mean volume (Bld) [Entitic vol] 9.1 fL Normal 6.3-10.7 [facility] Comment on above: Performed By: #### C BC, BMP, HCGQNT #### [place] [address] [place] Platelets (Bld) [#/Vol] 216 10*3/uL Normal 150-450 [facility] Comment on above: Performed By: #### C BC, BMP, HCGQNT #### [facility] [address] [place] [address] [place] RBC (Bld) [#/Vol] 4.03 10*6/uL Normal 3.60-5.00 [facility] Comment on above: Performed By: #### C BC, BMP, HCGQNT #### [place] [address] [place] WBC (Bld) [#/Vol] 6.3 10*3/uL Normal 4.5-11.0 [facility] Comment on above: Performed By: #### C BC, BMP, HCGQNT #### [facility] [address] [place] [address] [place] Dipstick and Microscopicon 0 06-05-2021 Appearance (U) Clear Normal Clear [facility] Comment on above: Order Comment: Name Collection Type:: Clean-Voided Midstream Performed By: #### C UU, ADDONUAPLUS #### [place] [address] [place] Bacteria,Urine None Seen Normal None Seen [facility] Comment on above: Order Comment: Name Collection Type:: Clean-Voided Midstream Performed By: #### C UU, ADDONUAPLUS #### [place] [address] [place] Bilirubin,Urine Negative Normal Negative [facility] Comment on above: Order Comment: Name Collection Type:: Clean-Voided Midstream Performed By: #### C UU, ADDONUAPLUS #### [address] Color (U) Yellow Normal Yellow [facility] Comment on above: Order Comment: Name Collection Type:: Clean-Voided Midstream Performed By: #### C UU, ADDONUAPLUS #### [address] Glucose Ql (U) Normal Normal Normal [facility] Comment on above: Order Comment: Name Collection Type:: Clean-Voided Midstream Performed By: #### C UU, ADDONUAPLUS #### [place] [address] [place] Hyaline Casts,Urine 0-8 Normal 0-8 [facility] Comment on above: Order Comment: Name Collection Type:: Clean-Voided Midstream Result Comment: PERF ORMED BY: [place] [address] PATHOLOGIST MEDICAL CERTIFICATION SPECIALIST BON ZAYAS M.D. Performed By: #### C UU, ADDONUAPLUS #### [place] [address] [place] Ketones Ql (U) Trace High Negative [facility] Comment on above: Order Comment: Name Collection Type:: Clean-Voided Midstream Performed By: #### C UU, ADDONUAPLUS #### [facility] [address] [place] [address] Leukocyte esterase Test stri p Ql (U) 1+ High Negative [facility] Comment on above: Order Comment: Name Collection Type:: Clean-Voided Midstream Performed By: #### C UU, ADDONUAPLUS #### [facility] [address] [place] [address] Nitrite,Urine Negative Normal Negative [facility] Comment on above: Order Comment: Name Collection Type:: Clean-Voided Midstream Performed By: #### C UU, ADDONUAPLUS #### [address] Occult Blood,Urine 2+ High Negative [facility] Comment on above: Order Comment: Name Collection Type:: Clean-Voided Midstream Result Comment: PERF ORMED BY: [place] [address] PATHOLOGIST MEDICAL CERTIFICATION SPECIALIST BON ZAYAS M.D. Performed By: #### C UU, ADDONUAPLUS #### [facility] [address] [place] [address] pH (U) 7.0 [pH] Normal 5.0-9.0 [facility] Comment on above: Order Comment: Name Collection Type:: Clean-Voided Midstream Performed By: #### C UU, ADDONUAPLUS #### [facility] [address] [place] [address] [place] Protein,Urine Trace High Negative [facility] Comment on above: Order Comment: Name Collection Type:: Clean-Voided Midstream Performed By: #### C UU, ADDONUAPLUS #### [facility] [address] [place] [address] [place] RBC LM.HPF (Urine sed) [#/Area] 0 /[HPF] Normal 0-4 [facility] Comment on above: Order Comment: Name Collection Type:: Clean-Voided Midstream Performed By: #### C UU, ADDONUAPLUS #### [facility] [address] [place] [address] Specificy [place],Urine 1.027 Normal 1.001-1.030 [facility] Comment on above: Order Comment: Name Collection Type:: Clean-Voided Midstream Performed By: #### C UU, ADDONUAPLUS #### [address] Squamous Epithelial Cell,Urine 3-4 High 0-2 [facility] Comment on above: Order Comment: Name Collection Type:: Clean-Voided Midstream Performed By: #### C UU, ADDONUAPLUS #### [address] Urobilinogen,Urine Normal Normal Normal [facility] Comment on above: Order Comment: Name Collection Type:: Clean-Voided Midstream Performed By: #### C UU, ADDONUAPLUS #### [address] WBC,Urine 5-9 High 0-4 [facility] Comment on above: Order Comment: Name Collection Type:: Clean-Voided Midstream Performed By: #### C UU, ADDONUAPLUS #### [address] HCG,Quantitativeon 2 HCG,Quantitative 690.11 m[iU]/mL Normal [facility] Comment on above: Result Comment: Appr oximate Approximate hCG Gestational Age Range (mIU/ml) (weeks) 0.2-1 5-50 1-2 50-500 2-3 100-5,000 3-4 500-10,000 4-5 1,000-50,000 5-6 10,000-100,000 6-8 15,000-200,000 8-12 10,000-100,000 PERFORMED BY: [place] [address] PATHOLOGIST MEDICAL CERTIFICATION SPECIALIST BON ZAYAS M.D. Performed By: #### C BC, BMP, HCGQNT #### [facility] [address] [place] [address] Rhogam Workupon 06-05-2021 RHOGAM DOSE NONROUTINE Normal [facility] Comment on above: Result Comment: 1 do se(300mcg)of RhoGAM indicated PERFORMED BY: [place] [address] PATHOLOGIST MEDICAL CERTIFICATION SPECIALIST BON ZAYAS M.D. Rhogam Candidate Yes Normal [facility] Urine Cultureon 06-05-2021 Bacteria identified Cx Nom (U) 10,000 colonies/ml mixed bacterial skin contaminants 2 Days PERFORMED BY: [place] [address] PATHOLOGIST MEDICAL CERTIFICATION SPECIALIST BON ZAYAS M.D. [facility] Comment on above: Performed By: #### C UU, ADDONUAPLUS #### [facility] [address] [place] [address] Basic Metabolic Panelon 05-08 Calcium [Mass/Vol] 8.9 mg/dL Normal 8.2-10.2 [facility] Comment on above: Performed By: #### B MP, HCGQNT #### [address] Chloride [Moles/Vol] 106 mmol/L Normal 95-114 [facility] Comment on above: Performed By: #### B MP, HCGQNT #### [facility] [address] [place] [address] CO2 [Moles/Vol] 21.5 mmol/L Low 22.0-30.0 [facility] Comment on above: Performed By: #### B MP, HCGQNT #### [address] Creatinine [Mass/Vol] 0.73 mg/dL Normal 0.44-1.03 [facility] Comment on above: Performed By: #### B MP, HCGQNT #### [address] [address] [place] Creatinine Clr Calc Pharmacy 103.87 [facility] Comment on above: Performed By: #### B BHUMIKA, HCGQNT #### [address] Estimated GFR ( Chasity > 60 [facility] Comment on above: Result Comment: GFR estimated reference range: According to KDOQI guidelines, <60 ml/min/1.73m2 is sufficient to diagnose a patient with chronic kidney disease. Performed By: #### B MP, HCGQNT #### [address] Estimated GFR (Non- Am > 60 [facility] Comment on above: Performed By: #### B BHUMIKA, HCGQNT #### [address] Glucose [Mass/Vol] 110 mg/dL High 70-100 [facility] Comment on above: Result Comment: [place] om Glucose Reference Range is dependent on time and content of last meal. Glucose of more than 200 mg/dL in a nonstressed, ambulatory subject supports the diagnosis of Diabetes Mellitus. ADA recommended reference range Performed By: #### B BHUMIKA, HCGQNT #### [address] Potassium [Moles/Vol] 3.2 mmol/L Low 3.5-5.1 [facility] Comment on above: Performed By: #### B BHUMIKA, HCGQNT #### [address] Sodium [Moles/Vol] 134 mmol/L Low 136-146 [facility] Comment on above: Performed By: #### B BHUMIKA, HCGQNT #### [facility] [address] [place] [address] Urea nitrogen [Mass/Vol] 7 mg/dL Low 9-23 [facility] Comment on above: Performed By: #### B MP, HCGQNT #### [address] Complete Blood Count Auto Di ffon 05-28-2021 Basophils (Bld) [#/Vol] 0.1 10*3/uL Normal 0.0-0.2 [facility] Comment on above: Result Comment: PERF ORMED BY: [place] [address] PATHOLOGIST MEDICAL CERTIFICATION SPECIALIST BON ZAYAS M.D. Performed By: #### C BC #### [address] Basophils/100 WBC (Bld) 1.8 % Normal . [facility] Comment on above: Performed By: #### C BC #### [address] Eosinophils (Bld) [#/Vol] 0.1 10*3/uL Normal 0.0-0.45 [facility] Comment on above: Performed By: #### C BC #### [address] Eosinophils/100 WBC (Bld) 1.6 % Normal . [facility] Comment on above: Performed By: #### C BC #### [address] Erythrocyte distribution wid th (RBC) [Ratio] 12.4 % Normal 11.9-15.3 [facility] Comment on above: Performed By: #### C BC #### [address] Hematocrit (Bld) [Volume fraction] 35.6 % Normal 34.0-46.4 [facility] Comment on above: Performed By: #### C BC #### [address] Hemoglobin (Bld) [Mass/Vol] 12.1 g/dL Normal 11.8-15. 4 [facility] Comment on above: Performed By: #### C BC #### [address] Lymphocytes (Bld) [#/Vol] 1.8 10*3/uL Normal 1.00-4.8 [facility] Comment on above: Performed By: #### C BC #### [facility] [address] [place] [address] [place] Lymphocytes/100 WBC (Bld) 29.2 % Normal . [facility] Comment on above: Performed By: #### C BC #### [facility] [address] MCH (RBC) [Entitic mass] 30.7 pg Normal 24.7-34.3 [facility] Comment on above: Performed By: #### C BC #### [address] MCV (RBC) [Entitic vol] 90.1 fL Normal 80-100 [facility] Comment on above: Performed By: #### C BC #### [address] Mean Corpuscular HGB Conc 34.0 g/dL Normal 32.0-35.0 [facility] Comment on above: Performed By: #### C BC #### [place] [address] [place] Monocytes (Bld) [#/Vol] 0.4 10*3/uL Normal 0.0-0.8 [facility] Comment on above: Performed By: #### C BC #### [address] Monocytes/100 WBC (Bld) 6.5 % Normal . [facility] Comment on above: Performed By: #### C BC #### [address] Neutrophils (Bld) [#/Vol] 3.7 10*3/uL Normal 1.8-7.7 [facility] Comment on above: Performed By: #### C BC #### [place] [address] [place] Neutrophils/100 WBC (Bld) 60.9 % Normal . [facility] Comment on above: Performed By: #### C BC #### [place] [address] [place] Nucleated RBC/100 WBC (Bld) [Ratio] 0.1 % Normal 0-0.5 [facility] Comment on above: Performed By: #### C BC #### [address] Platelet mean volume (Bld) [Entitic vol] 9.0 fL Normal 6.3-10.7 [facility] Comment on above: Performed By: #### C BC #### [address] Platelets (Bld) [#/Vol] 233 10*3/uL Normal 150-450 [facility] Comment on above: Performed By: #### C BC #### [address] RBC (Bld) [#/Vol] 3.95 10*6/uL Normal 3.60-5.00 [facility] Comment on above: Performed By: #### C BC #### [address] WBC (Bld) [#/Vol] 6.0 10*3/uL Normal 4.5-11.0 [facility] Comment on above: Performed By: #### C BC #### [address] HCG,Quantitativeon 2 HCG,Quantitative 2128.00 m[iU]/mL Normal [facility] Comment on above: Result Comment: Appr oximate Approximate hCG Gestational Age Range (mIU/ml) (weeks) 0.2-1 5-50 1-2 50-500 2-3 100-5,000 3-4 500-10,000 4-5 1,000-50,000 5-6 10,000-100,000 6-8 15,000-200,000 8-12 10,000-100,000 PERFORMED BY: [place] [address] PATHOLOGIST MEDICAL CERTIFICATION SPECIALIST BON ZAYAS M.D. Performed By: #### B MP, HCGQNT #### [facility] [address] [id number] [facility] Vital Signs Date Time Vital Sign Value Performing Clinician Indigo wallace 12-05-2022 16:00-0400 Hourly Rounding Mirela SHARONA [facility] Comment on above: Result Comment: disc h inst reviewed and pt states understanding 12-05-2022 15:45-0400 Hourly Rounding Cor ey SHARONA [facility] Comment on above: Result Comment: revi ewed disch inst and mother to be band placed on pt states understanding 12-05-2022 15:30-0400 Hourly Rounding Cor ey SHARONA [facility] Comment on above: Result Comment: BABY ACTIVE AND PT STATES HE PUSHES ALOT ON HER LOWER ABD 12-05-2022 15:15-0400 Blood Pressure Location Mirela SHARONA [facility] 12-05-2022 15:15-0400 Body temperature 97.7 [degF] Mirela SHARONA [facility] 12-05-2022 15:15-0400 Diastolic blood pressure 63 mm[Hg] Mirela SHARONA [facility] 12-05-2022 15:15-0400 Heart rate 83 /min Mirela SHARONA [facility] 12-05-2022 15:15-0400 Mean blood pressure 80 mm[Hg] Mirela SHARONA [facility] 12-05-2022 15:15-0400 Respiratory rate 16 /min Mirela SHARONA [facility] 12-05-2022 15:15-0400 Systolic blood pressure 115 mm[Hg] Mirela SHARONA [facility] 12-02-2022 16:46-0400 Body temperature 97.7 [degF] [facility] 12-02-2022 16:46-0400 Diastolic blood pressure 82 mm[Hg] [facility] 12-02-2022 16:46-0400 Heart rate 108 /min [facility] 12-02-2022 16:46-0400 Respiratory rate 16 /min [facility] 12-02-2022 16:46-0400 SaO2% (BldA) [Mass fraction] 100 % [facility] 12-02-2022 16:46-0400 Systolic blood pressure 124 mm[Hg] [facility] Encounters Encounter Date Encounter Type Care Provider Facility Start: 03-19-2023 End: 03-19-2023 ambulatory RUTH LAISHA Not Available Start: 03-12-2023 End: 03-12-2023 ambulatory MIRELA SHARONA Not Available Start: 03-05-2023 End: 03-05-2023 ambulatory MIRELA SHARONA Not Available Start: 02-25-2023 End: 02-25-2023 ambulatory RUTH LAISHA Not Available Start: 12-06-2022 End: 01-04-2023 Pre-admission assessment Mirela R SHARONA [facility] Start: 12-05-2022 End: 12-05-2022 ambulatory Mirela R SHARONA Facility[place] Start: 12-05-2022 End: 12-05-2022 OB Triage Mirela R SHARONA [facility] Start: 12-02-2022 End: 12-02-2022 Emergency department patient visit Ayaan Reed Facility:[facility] Start: 12-02-2022 End: 12-02-2022 Emergency department [facility] Start: 08-21-2022 End: 08-22-2022 Emergency department patient visit Ayaan Reed Facility:[facility] Start: 04-18-2022 End: 04-18-[address] NONE LISTED REQUEST Facility:[facility] Start: 03-03-2022 End: 03-03-[address] NONE LISTED REQUEST Facility:[facility] Start: 03-03-2022 End: 03-03-2022 Emergency department patient visit Wallace Regalado Facility:[facility] Start: 02-14-2022 End: 02-14-[address] NONE LISTED REQUEST Facility:[facility] Start: 08-12-2021 End: 08-12-2021 ambulatory MAYELA ESPINO Facility:[facility] Start: 06-05-2021 End: 06-05-2021 Emergency department patient visit PHYSICIAN NO FAMILY Facility:[facility] Start: 05-28-2021 End: 05-28-2021 Emergency department patient visit Torito Won Garcia Facility:[facility] Procedures Date Procedure Procedure Detail Performing Clinician Start: 06-05-2021 Antibody screen PHYSICI AN NO FAMILY Payers Date Payer Category Payer Self-pay 2000 Unknown [id number] 2.16.84 [id number] 2000 Unknown [id number] 2.16.84 [id number] 2000 Unknown [id number] 2.16.84 [id number] 2000 Unknown [id number] 2.16.84 [id number] 2000 Unknown [id number] 2.16.8 [id number] 2000 Unknown [id number] 2.16.8 [id number] 2000 Unknown [id number] 2.16.8 [id number] 2000 Unknown [id number] 2.16.840 .[id number] 2000 Unknown [id number] 2.16.840 .[id number] 2000 Unknown [id number] 2.16.840 .[id number] 2000 Unknown [id number] 2.16.840 .[id number] 1959 Unknown [id number] Unknown [id number] 2.16.8 [id number] Unknown [id number] 2.16.8 [id number] Unknown [id number] 2.16.8 [id number] Social History Date Type Detail Facility Tobacco smoking status No Smokin g Status Entered [facility] Sex Assigned At Female [facility] Start: 12-05-2022 Tobacco smoking status Former smokeless tobacco user, quit more than 30 days ago [facility] Functional Status Date Assessment Result Facility 12-05-2022 Functional Status N/A [facility] 12-02-2022 Functional Status N/A [facility] Clinical Note 12-05-2022 Note Date & Type Note Facility 12-05-2022 Note The following Ha t Education Materials have been given to the patient: EducationMaterial [facility] Hospital Discharge instructions 12-05-2022 Note Date & Type Note Facility 12-05-2022 Hospital Discharg e instructions Patient Education 12/05/2022 15:55:21 Second Trimester of , Mulf-ha-Uaqz Second Trimester of The second trimester of is from week 13 through week 27. This is also called months 4 through 6 of . This is often the time when you feel your best. During the second trimester: Morning sickness is less or has stopped. You may have more energy. You may feel hungry more often. At this time, your unborn baby (fetus) is growing very fast. At the end of the sixth month, the unborn baby may be up to 12 inches long and weigh about 1 pounds. You will likely start to feel the baby move between 16 and 20 weeks of . Body changes during your second trimester Your body continues to go through many changes during this time. The changes vary and generally return to normal after the baby is born. Physical changes You will gain more weight. You may start to get stretch hall on your hips, belly (abdomen), and breasts. Your breasts will grow and may hurt. Dark spots or blotches may develop on your face. A dark line from your belly button to the pubic area (linea nigra) may appear. You may have changes in your hair. Health changes You may have headaches. You may have heartburn. You may have trouble pooping (constipation). You may have hemorrhoids or swollen, bulging veins (varicose veins). Your gums may bleed. You may pee (urinate) more often. You may have back pain. Follow these instructions at home: Medicines Take cvnu-lmb-zssqrqi and prescription medicines only as told by your doctor. Some medicines are not safe during . Take a vitamin that contains at least 600 micrograms (mcg) of folic acid. Eating and drinking Eat healthy meals that include: ?Fresh fruits and vegetables. ?Whole grains. ?Good sources of protein, such as meat, eggs, or tofu. ?Low-fat dairy products. Avoid raw meat and unpasteurized juice, milk, and cheese. You may need to take these actions to prevent or treat trouble pooping: ?Drink enough fluids to keep your pee (urine) pale yellow. ?Eat foods that are high in fiber. These include beans, whole grains, and fresh fruits and vegetables. ?Limit foods that are high in fat and sugar. These include fried or sweet foods. Activity Exercise only as told by your doctor. Most people can do their usual exercise during . Try to exercise for 30 minutes at least 5 days a week. Stop exercising if you have pain or cramps in your belly or lower back. Do not exercise if it is too hot or too humid, or if you are in a place of great height (high altitude). Avoid heavy lifting. If you choose to, you may have sex unless your doctor tells you not to. Relieving pain and discomfort Wear a good support bra if your breasts are sore. Take warm water baths (sitz baths) to soothe pain or discomfort caused by hemorrhoids. Use hemorrhoid cream if your doctor approves. Rest with your legs raised (elevated) if you have leg cramps or low back pain. If you develop bulging veins in your legs: ?Wear support hose as told by your doctor. ?Raise your feet for 15 minutes, 3 4 times a day. ?Limit salt in your food. Safety Wear your seat belt at all times when you are in a car. Talk with your doctor if someone is hurting you or yelling at you a lot. Lifestyle Do not use hot tubs, steam rooms, or saunas. Do not douche. Do not use tampons or scented sanitary pads. Avoid cat litter boxes and soil used by cats. These carry germs that can harm your baby and can cause a loss of your baby by miscarriage or stillbirth. Do not use herbal medicines, illegal drugs, or medicines that are not approved by your doctor. Do not drink alcohol. Do not smoke or use any products that contain nicotine or tobacco. If you need help quitting, ask your doctor. General instructions Keep all follow-up visits. This is important. Ask your doctor about local classes. Ask your doctor about the right foods to eat or for help finding a counselor. Where to find more information [place] Association: americanpregnancy.org [place] [employer] Gynecologists: www.acog.org Office on Women's Health: womenshealth.gov/ Contact a doctor if: You have a headache that does not go away when you take medicine. You have changes in how you see, or you see spots in front of your eyes. You have mild cramps, pressure, or pain in your lower belly. You continue to feel like you may vomit (nauseous), you vomit, or you have watery poop (diarrhea). You have bad-smelling fluid coming from your vagina. You have pain when you pee or your pee smells bad. You have very bad swelling of your face, hands, ankles, feet, or legs. You have a fever. Get help right away if: You are leaking fluid from your vagina. You have spotting or bleeding from your vagina. You have very bad belly cramping or pain. You have trouble breathing. You have chest pain. You faint. You have not felt your baby move for the time period told by your doctor. You have new or increased pain, swelling, or redness in an arm or leg. Summary The second trimester of is from week 13 through week 27 (months 4 through 6). Eat healthy meals. Exercise as told by your doctor. Most people can do their usual exercise during . Do not use herbal medicines, illegal drugs, or medicines that are not approved by your doctor. Do not drink alcohol. Call your doctor if you get sick or if you notice anything unusual about your . This information is not intended to replace advice given to you by your health care provider. Make sure you discuss any questions you have with your health care provider. Document Revised: 08/29/2020 Document Reviewed: 07/05/2020 [employer] Patient Education 2022 [employer]. Follow Up Care 12/05/2022 15:07:15 With:Mirela TABOR Address: [address] , [place] [address] Business (1) When:12/17/2022 Comments:Return if ruptured membranes or vaginal bleedingReturn for decreased movementReturn for contractions closer, longer, harderCall physician if symptoms worsenCall for severe abdominal painCall for fever > 100.5 FCall for any problems. [facility] Hospital Discharge instructions 12-02-2022 Note Date & Type Note Facility 12-02-2022 Hospital Discharg e instructions Patient Education 12/02/2022 17:01:54 Allergies, Adult Allergies, Adult An allergy is a condition in which the body's defense system (immune system) comes in contact with an allergen and reacts to it. An allergen is anything that causes an allergic reaction. Allergens cause the immune system to make proteins for fighting infections (antibodies). These antibodies cause cells to release chemicals called histamines that set off the symptoms of an allergic reaction. Allergies often affect the nasal passages (allergic rhinitis), eyes (allergic conjunctivitis), skin (atopic dermatitis), and stomach. Allergies can be mild, moderate, or severe. They cannot spread from person to person. Allergies can develop at any age and may be outgrown. What are the causes? This condition is caused by allergens. Common allergens include: Outdoor allergens, such as pollen, car fumes, and mold. Indoor allergens, such as dust, smoke, mold, and pet dander. Other allergens, such as foods, medicines, scents, insect bites or stings, and other skin irritants. What increases the risk? You are more likely to develop this condition if you have: Family members with allergies. Family members who have any condition that may be caused by allergens, such as asthma. This may make you more likely to have other allergies. What are the signs or symptoms? Symptoms of this condition depend on the severity of the allergy. Mild to moderate symptoms Runny nose, stuffy nose (nasal congestion), or sneezing. Itchy mouth, ears, or throat. A feeling of mucus dripping down the back of your throat (postnasal drip). Sore throat. Itchy, red, watery, or puffy eyes. Skin rash, or itchy, red, swollen areas of skin (hives). Stomach cramps or bloating. Severe symptoms Severe allergies to food, medicine, or insect bites may cause anaphylaxis, which can be life-threatening. Symptoms include: A red (flushed) face. Wheezing or coughing. Swollen lips, tongue, or mouth. Tight or swollen throat. Chest pain or tightness, or rapid heartbeat. Trouble breathing or shortness of breath. Pain in the abdomen, vomiting, or diarrhea. Dizziness or fainting. How is this diagnosed? This condition is diagnosed based on your symptoms, your family and medical history, and a physical exam. You may also have tests, including: Skin tests to see how your skin reacts to allergens that may be causing your symptoms. Tests include: ?Skin prick test. For this test, an allergen is introduced to your body through a small opening in the skin. ?Intradermal skin test. For this test, a small amount of allergen is injected under the first layer of your skin. ?Patch test. For this test, a small amount of allergen is placed on your skin. The area is covered and then checked after a few days. Blood tests. A challenge test. For this test, you will eat or breathe in a small amount of allergen to see if you have an allergic reaction. You may also be asked to: Keep a food diary. This is a record of all the foods, drinks, and symptoms you have in a day. Try an elimination diet. To do this: ?Remove certain foods from your diet. ?Add those foods back one by one to find out if any foods cause an allergic reaction. How is this treated? Treatment for allergies depends on your symptoms. Treatment may include: Cold, wet cloths (cold compresses) to soothe itching and swelling. Eye drops or nasal sprays. Nasal irrigation to help clear your mucus or keep the nasal passages moist. A humidifier to add moisture to the air. Skin creams to treat rashes or itching. Oral antihistamines or other medicines to block the reaction or to treat inflammation. Diet changes to remove foods that cause allergies. Being exposed again and again to tiny amounts of allergens to help you build a defense against it (tolerance). This is called immunotherapy. Examples include: ?Allergy shot. You receive an injection that contains an allergen. ?Sublingual immunotherapy. You take a small dose of allergen under your tongue. Emergency injection for anaphylaxis. You give yourself a shot using a syringe (auto-injector) that contains the amount of medicine you need. Your health care provider will teach you how to give yourself an injection. Follow these instructions at home: Medicines Take or apply bcls-ytx-kdvcrce and prescription medicines only as told by your health care provider. Always carry your auto-injector pen if you are at risk of anaphylaxis. Give yourself an injection as told by your health care provider. Eating and drinking Follow instructions from your health care provider about eating or drinking restrictions. Drink enough fluid to keep your urine pale yellow. General instructions Wear a medical alert bracelet or necklace to let others know that you have had anaphylaxis before. Avoid known allergens whenever possible. Keep all follow-up visits as told by your health care provider. This is important. Contact a health care provider if: Your symptoms do not get better with treatment. Get help right away if: You have symptoms of anaphylaxis. These include: ?Swollen mouth, tongue, or throat. ?Pain or tightness in your chest. ?Trouble breathing or shortness of breath. ?Dizziness or fainting. ?Severe abdominal pain, vomiting, or diarrhea. These symptoms may represent a serious problem that is an emergency. Do not wait to see if the symptoms will go away. Get medical help right away. Call your local emergency services (911 in the [place] Do not drive yourself to the hospital. Summary Take or apply seut-yxf-nufvdcg and prescription medicines only as told by your health care provider. Avoid known allergens when possible. Always carry your auto-injector pen if you are at risk of anaphylaxis. Give yourself an injection as told by your health care provider. Wear a medical alert bracelet or necklace to let others know that you have had anaphylaxis before. Anaphylaxis is a life-threatening emergency. Get help right away. This information is not intended to replace advice given to you by your health care provider. Make sure you discuss any questions you have with your health care provider. Document Revised: 11/19/2020 Document Reviewed: 02/01/2020 [employer] Patient Education 2022 [employer]. Follow Up Care 12/02/2022 16:42:33 With:Ryan Link Address: [address] [facility] [place] [address]- Business (1) When:12/05/2022 16:59:14 [facility] Evaluation + Plan note 12-02-2022 Note Date & Type Note Facility 12-02-2022 Evaluation + Plan note Extrac colleen from: Title:ED Note Author:Carroll Keene PA-C te:12/02/22 Allergic reaction (T78.40XA: Allergy, unspecified, initial encounter) Orders: loratadine, 10 mg = 1 tab(s), Oral, Daily, X 10 day(s), # 10 tab(s), Refills(s) 0, Pharmacy: [facility]/pharmacy #[id number], 167.6, cm, 12/02/22 16:49:00 EDT, Height/Length Dosing, 61.4, kg, 12/02/22 16:49:00 EDT, Weight Dosing methylPREDNISolone, = 1 packet(s), Oral, As Directed, as directed on package labeling, X 6 day(s), # 21 tab(s), Refills(s) 0, Pharmacy: [facility]/pharmacy #[id number], 167.6, cm, 12/02/22 16:49:00 EDT, Height/Length Dosing, 61.4, kg, 12/02/22 16:49:00 EDT, Weight Dosing [facility] Hospital course Narrative Note Date & Type Note Facility Hospital course Narrative No data available for this section [facility] Hospital Discharge instructions Note Date & Type Note Facility Hospital Discharge instructions No data available for this section [facility] Progress note Note Date & Type Note Facility Progress note No data available for this section [facility] Summary Purpose Family History No Family History Records FoundNo Family History Records FoundNo Family History Records Found No data available for this section No Family History Records Found Advance Directives No Advanced Directives Records FoundNo Advanced Directives Records FoundNo Advanced Directives Records FoundNo Advanced Directives Records Found Additional Source Comments INFORMATION SOURCE (unrecogn ized section and content) DATE CREATED AUTHOR 03/17/2022 [facility] DATE CREATED AUTHOR AUTHOR'S ORGANIZ ATION 04/21/2022 [facility] DATE CREATED AUTHOR AUTHOR'S ORGANIZ ATION 12/11/2022 [facility] DATE CREATED AUTHOR AUTHOR'S ORGANIZ ATION 03/21/2023 [facility] EPIC FOR RECORDS PERTAINING TO PATIENTS WHO ARE OR HAVE BEEN ENROLLED IN A CHEMICAL DEPENDENCY/SUBSTANCEABUSE PROGRAM, SOME INFORMATION MAY BE OMITTED. This clinical summary was aggregated from multiple sources. Caution should be exercised in using it in the provision of clinical care. This summary normalizes information from multiple sources, and as a consequence, information in this document may materially change the coding, format and clinical context of patient data. In addition, data may be omitted in some cases. CLINICAL DECISIONS SHOULD BE BASED ON THE PRIMARY CLINICAL RECORDS. [employer]. provides no warranty or guarantee of the accuracy or completeness of information in this document.
== END 2023-02-11 14:55 | disposition home or self-care (01) ==
LOC: US 14:54
PROVIDERS: Visit Provider Obstetrics & Gynecology
DX: O26.843 Uterine size-date discrepancy, third trimester (principal); Z3A.32 32 weeks gestation of pregnancy
CPT/HCPCS: 76816

== ENCOUNTER 2023-03-09 19:04 | Observation (INO) | payer OTHER, SELFPAY ==
[2023-03-09 19:21] VITALS: BP 122/58; PULSE 90; TEMP 35.9
[2023-03-09 19:55] LABS: Bilirubin Urine NEGATIVE (NEGATIVE); Blood Urine NEGATIVE (NEGATIVE); Clarity Urine CLEAR (CLEAR); Color Urine LT. YELLOW (YELLOW); Glucose Urine UA NEGATIVE (NEGATIVE); Ketones Urine NEGATIVE (NEGATIVE); Leukocyte Esterase Urine TRACE (NEGATIVE); Nitrite Urine NEGATIVE (NEGATIVE); Protein Urine NEGATIVE (NEG/TRACE); pH Urine 7.5 (5.0-9.0)
[2023-03-09 19:57] LABS: Urine Microscopic Indicated YES
[2023-03-09 20:02] LABS: Bacteria Urine NONE SEEN #/HPF (NONE SEEN); Cast Seen? NONE SEEN #/LPF (NONE SEEN); Crystals Seen? None Seen #/HPF (None Seen); Mucus Urine NONE SEEN (NONE SEEN); RBC Urine 0-2 #/HPF (0-2); Squamous Epithelial Cell Urine RARE #/LPF (NONE/RARE); WBC Urine 0-2 #/HPF (NONE SEEN)
== END 2023-03-09 20:35 | disposition home or self-care (01) ==
LOC: FBC 19:06
PROVIDERS: Admitting Provider Obstetrics & Gynecology; Visit Provider Obstetrics & Gynecology
DX: O26.893 Other specified pregnancy related conditions, third trimester (principal); R10.9 Unspecified abdominal pain; R10.2 Pelvic and perineal pain; Z3A.00 Weeks of gestation of pregnancy not specified
CPT/HCPCS: 59025; 81001; G0378; G0379

== ENCOUNTER 2023-03-12 19:32 | Outpatient (REF) | payer OTHER, SELFPAY | END 2023-03-12 19:33 | disposition home or self-care (01) | LOC: LAB 19:32 | PROVIDERS: Visit Provider Obstetrics & Gynecology | DX: Z34.93 Encounter for supervision of normal pregnancy, unspecified, third trimester (principal) | CPT/HCPCS: 87081 ==

== ENCOUNTER 2023-04-01 05:21 | Inpatient (IN) | payer OTHER, SELFPAY ==
[2023-04-01] VITALS (93 sets, daily range): BP systolic 86–212; BP diastolic 49–117; PULSE 58–193; RESP 16–18; TEMP 36.5–37.1
[2023-04-01] MEDS: 0.9 % SODIUM CHLORIDE 1,000 ML 1000 ML IV (06:13)
[2023-04-01] MEDS: OXYTOCIN/0.9 % SODIUM CHLORIDE 10 UNITS/500 ML PLAST..BAG 6 UNIT IV (06:14)
[2023-04-01 06:34] LABS: Hematocrit 31.8 % (36.0-48.0); Hemoglobin 10.1 g/dL (12.0-16.0); Mean Corpuscular HGB Conc 31.8 g/dL (29.9-35.2); Mean Corpuscular Hemoglobin 26.9 pg (26.7-34.0); Mean Corpuscular Volume 84.8 fL (81.0-99.0); Mean Platelet Volume 11.3 fL (9.5-13.5); Platelet Count 184 10^3/uL (150-450); Red Blood Count 3.75 10^6/uL (4.20-5.40); Red Cell Distribution Width 12.9 % (11.0-15.0); White Blood Count 10.5 10^3/uL (4.0-11.0)
[2023-04-01 06:56] LABS: Amphetamine Screen Urine NEGATIVE (NEGATIVE); Barbiturates Screen Urine NEGATIVE (NEGATIVE); Benzodiazepines Screen Urine NEGATIVE (NEGATIVE); Buprenorphine Screen Urine NEGATIVE (NEGATIVE); Cannabinoid Screen Urine NEGATIVE (NEGATIVE); Cocaine Screen Urine NEGATIVE (NEGATIVE); Methadone Screen Urine NEGATIVE (NEGATIVE); Methamphetamines Screen Urine NEGATIVE (NEGATIVE); Opiate Screen Urine NEGATIVE (NEGATIVE); Oxycodone Screen Urine NEGATIVE (NEGATIVE); Phencyclidine Screen Urine NEGATIVE (NEGATIVE); Tricyclic Antidepressant Urine NEGATIVE (NEGATIVE)
[2023-04-01] MEDS: 0.9 % SODIUM CHLORIDE 1,000 ML 125 ML IV (10:19)
[2023-04-01] MEDS: ROPIVACAINE HCL/PF 400 MG/200 ML PREMIX 6 MG EPIDURAL (10:55)
[2023-04-01] MEDS: FENTANYL CITRATE/PF 100 MCG/2 ML VIAL EPIDURAL ×2 (10:55)
--- NOTE | 2023-04-01 11:27 | PC.NURSE ---
de la garza catheter in and patent flowing well. urine clear yellow. de la garza taped to inner thigh. patient tolerated well.
--- NOTE | 2023-04-01 14:43 | PM.OBPRCVD ---
Procedure Intrapartal events: None Induction method: artificial rupture of membranes Delivery augmentation: rupture of membranes and pitocin Delivery monitor: external FHT and external uterine Route of delivery: Episiotomy Description: none Laceration description: none Estimated blood loss (mL): 200 Anesthesia type: Epidural Disposition: floor Delivery date: 04/01/23 Gender: male presentation: vertex Placental delivery description: Spontaneous cord description: 3 Vessels
--- NOTE | 2023-04-01 14:58 | PC.NURSE ---
1415 de la garza catheter removed with tip intact
--- NOTE | 2023-04-01 15:14 | PC.NURSE ---
epidural catheter remmoved from patient's back with tip intact. pt tolerated well.
--- NOTE | 2023-04-01 18:32 | PC.NURSE ---
patient up for first time since and epidural. patient denies any weak, unsteady, or shaky feelings. patient ambulates with own two feet steady to bathroom. patient educated able to get up on own if no symptoms arise. patient verbalizes understanding. RN encourages pt to call for help before getting out of bed if feeling unsteady. pt agrees to do so.
[2023-04-01] MEDS: IBUPROFEN 600 MG TABLET PO (23:51)
[2023-04-02 07:06] LABS: Basophils Absolute Auto 0.1 10^3/uL (0.0-0.1); Basophils Percent Auto 0.6 % (0.2-2.0); Eosinophils Absolute Auto 0.1 10^3/uL (0.0-0.7); Eosinophils Percent Auto 1.3 % (0.9-7.0); Hematocrit 28.3 % (36.0-48.0); Hemoglobin 9.1 g/dL (12.0-16.0); Immature Granulocytes Abs Auto 0.21 10^3/uL (0.00-0.03); Immature Granulocytes Pct Auto 1.9 % (0.0-0.5); Lymphocytes Absolute Auto 2.2 10^3/uL (1.2-3.8); Lymphocytes Percent Auto 20.1 % (20.5-60.0); Mean Corpuscular HGB Conc 32.2 g/dL (29.9-35.2); Mean Platelet Volume 11.2 fL (9.5-13.5); Monocytes Absolute Auto 0.7 10^3/uL (0.3-0.8); Monocytes Percent Auto 6.4 % (1.7-12.0); Neutrophils Absolute Auto 7.6 10^3/uL (1.4-6.5); Neutrophils Percent Auto 69.7 % (43.0-75.0); Platelet Count 179 10^3/uL (150-450); Red Blood Count 3.37 10^6/uL (4.20-5.40); Red Cell Distribution Width 12.9 % (11.0-15.0); White Blood Count 10.9 10^3/uL (4.0-11.0)
[2023-04-02 08:30] VITALS: BP 109/60; PULSE 61; RESP 16; TEMP 37
[2023-04-02 08:32] VITALS: BP 109/60; PULSE 61
[2023-04-02] MEDS: DOCUSATE SODIUM 100 MG CAPSULE PO (08:35)
[2023-04-02] MEDS: RHO(D) IMMUNE GLOBULIN 1,500 UNIT SYRINGE 1500 UNIT IV (08:35)
[2023-04-02] MEDS: IBUPROFEN 600 MG TABLET PO (08:35)
--- NOTE | 2023-04-02 13:17 | P.OBPN_ITS ---
OB - PN: Subj Subjective Patient comments: no complaints [place] status: doing well feeding status: exclusively bottle feeding Exam Narrative Exam Narrative: OFERRING NO COMPLAINTS Constitutional Vital Signs, click to edit/add: Last Vital Signs Temp 98.6 F 04/02/23 08:30 Pulse 61 04/02/23 08:32 Resp 16 04/02/23 08:30 BP 109/60 04/02/23 08:32 O2 Del Method Room Air 04/02/23 08:30 Documenting provider has reviewed patient's vital signs: yes Common normals: no apparent distress, oriented x3 and alert HENMT Common normals: normocephalic and head/scalp atraumatic Eye Pupil: PERRL and accommodation reflex normal Neck & C-Spine Common normals: full ROM and supple Respiratory Common normals: normal respiratory effort Cardio Common normals: no JVD, regular rate and regular rhythm GI Common normals: Normal to inspection, nondistended, normoactive bowel sounds present Common normals: no CVA tenderness Back & Pelvis Common normals: no CVA tenderness Extremity Common normals: normal to inspection, full ROM and no calf tenderness Neuro Common normals: oriented x3, CN's II-XII intact bilaterally, moves all extremities, no focal motor deficits and no sensory deficits noted Psych Common normals: mental status grossly normal, thought process normal, coope rative and affect normal Results Labs Labs: Short CBC 04/02/23 Range/Units 06:41 WBC 10.9 (4.0-11.0) 10^3/uL Hgb 9.1 L (12.0-16.0) g/dL Hct 28.3 L (36.0-48.0) % Plt Count 179 (150-450) 10^3/uL OB - PN: A/P Assessment and Plan (1) Normal vaginal delivery: Assessment and Plan: DOING WELL, VOICING NO COMPLAINTS, VSS , BABY DOING WELL, EXCLUSIVELY BOTTLE FEEDING, INSTRUCTED TO WEAR SPORTS BRA 27/10 SO MILK WILL NOT COME IN Plan - Vaginal Delivery day: 1 Plan: routine care Time Spent with Patient Time: Total time spent is greater than 50% in coordination of care (as documented) at patient's floor/unit and/or counseling patient: Total time spent with greater than 50% in coordination of care (as documented) at patient's floor/unit and/or counseling patient: less than 15 minutes
[2023-04-02 16:00] VITALS: BP 107/53; PULSE 76; RESP 16; TEMP 36.8
[2023-04-02 16:08] VITALS: BP 107/53; PULSE 76
--- NOTE | 2023-04-02 19:13 | W.PC.ACHO ---
Registration Status: ADM IN Primary Language: Swedish Preferred Language: Swedish Active Medications Generic Name Dose Route Start Last Admin Trade Name Freq PRN Reason Stop Dose Admin Acetaminophen 650 mg 04/01/23 14:45 Acetaminophen 325 Mg Tablet PO Q6H PRN Mild Pain Al Hydroxide/Mg Hydroxide 2,400 mg 04/01/23 14:45 Magnesium Hydroxide 2,400 Mg/10 Ml Oral.Susp PO Q6H PRN Dyspepsia Benzocaine/Menthol 1 applic 04/01/23 14:45 Benzocaine/Menthol 85 Gram Tatum Bottle TOPICAL Q2H PRN Pain Diphtheria/Pertussis/Tetanus Vacc 0.5 ml 04/03/23 09:00 Adacel Diph,Pertuss(Acell),Tet Vac/Pf 0.5 Ml Adult Syringe IM 04/03/23 09:01 .ONCE ONE Docusate Sodium 100 mg 04/02/23 09:00 04/02/23 08:35 Docusate Sodium 100 Mg Capsule PO 100 mg BID MAHESH Administration Sodium Chloride 1,000 mls @ 125 mls/hr 04/01/23 05:45 04/01/23 10:19 Sodium Chloride 0.9% 1,000 Ml IV 125 mls/hr .Q8H MAHESH Administration Ibuprofen 600 mg 04/01/23 14:45 04/02/23 08:35 Ibuprofen 600 Mg Tablet PO 600 mg Q6H PRN Administration Moderate Pain Measles/Mumps/Rubella Vaccine Live 0.5 ml 04/03/23 09:00 Measles,Mumps,Rubella Vacc/Pf 0.5 Ml Vial SQ 04/03/23 09:01 .ONCE ONE Ondansetron HCl 4 mg 04/01/23 05:38 Ondansetron Pf 4 Mg/2 Ml Vial IV Q6H PRN Nausea And Vomiting Ondansetron HCl 4 mg 04/01/23 05:38 Ondansetron 4 Mg Rapdis Tablet SL Q6H PRN Nausea And Vomiting Senna 17.2 mg 04/01/23 20:00 Sennosides 8.6 Mg Tablet PO QHS PRN Constipation Simethicone 80 mg 04/01/23 14:45 Simethicone 80 Mg Tab.Chew PO QID PRN Abdominal Distention Temazepam 15 mg 04/01/23 14:45 Temazepam 15 Mg Capsule PO QHS PRN Sleep Witch Kanwal/Glycerin 1 pad 04/01/23 14:45 Glycerin/Witch Kanwal Pads TOPICAL Q2H PRN Pain Respiratory Oxygen Delivery Method Room Air Oxygen Delivery Method Room Air
[2023-04-02 19:19] VITALS: BP 115/69; PULSE 75
[2023-04-02 19:25] VITALS: RESP 14; TEMP 36.6
[2023-04-03 04:41] VITALS: BP 102/52; PULSE 69
[2023-04-03 04:46] VITALS: RESP 14; TEMP 36.7
--- NOTE | 2023-04-03 07:41 | PC.NURSE ---
This RN has reviewed charting & assessments by Lazaro De Oliveira, Nurse Sr Account Executive.
[2023-04-03 08:15] VITALS: RESP 16; TEMP 36.9
[2023-04-03 08:31] VITALS: BP 107/58; PULSE 70
--- NOTE | 2023-04-03 10:19 | PM.OBPN ---
OB - PN: Subj Subjective Patient comments: no complaints [place] status: doing well feeding status: exclusively bottle feeding Exam Constitutional Vital Signs, click to edit/add: Last Vital Signs Temp 98.4 F 04/03/23 08:15 Pulse 70 04/03/23 08:31 Resp 16 04/03/23 08:15 BP 107/58 04/03/23 08:31 O2 Del Method Room Air 04/02/23 16:00 Common normals: no apparent distress and oriented x3 HENMT Common normals: normocephalic Eye Common normals: EOMs intact bilaterally Neck & C-Spine Common normals: full ROM and no lymphadenopathy Lymph Lymphatic: no lymphadenopathy noted Respiratory Common normals: normal respiratory effort Auscultation: clear to auscultation bilaterally Cardio Common normals: regular rate and regular rhythm GI Common normals: Normal to inspection, nondistended, normoactive bowel sounds present Common normals: no CVA tenderness Back & Pelvis Common normals: no CVA tenderness Extremity Common normals: normal to inspection and full ROM Neuro Common normals: oriented x3 and moves all extremities Psych Common normals: mental status grossly normal, thought process normal and cooperative OB - PN: A/P Assessment and Plan (1) Normal vaginal delivery: Plan - Vaginal Delivery day: 2 Plan: discharge home Time Spent with Patient Time: Total time spent is greater than 50% in coordination of care (as documented) at patient's floor/unit and/or counseling patient: Total time spent with greater than 50% in coordination of care (as documented) at patient's floor/unit and/or counseling patient: less than 15 minutes
== END 2023-04-03 14:30 | disposition home or self-care (01) | DRG 560 ==
PROVIDERS: Admitting Provider Obstetrics & Gynecology; Visit Provider Obstetrics & Gynecology
DX: O26.893 Other specified pregnancy related conditions, third trimester (principal); Z67.11 Type A blood, Rh negative; O99.334 Smoking (tobacco) complicating childbirth; F17.290 Nicotine dependence, other tobacco product, uncomplicated; Z3A.39 39 weeks gestation of pregnancy; Z37.0 Single live birth
CPT/HCPCS: 36415; 59050; 59410; 80307; 85025; 85027; 85461; 86850; 86900; 86901; 96365; 96366; 96372; 96376; J2790

== ENCOUNTER 2024-05-12 12:54 | Outpatient (OUT) | payer OTHER, SELFPAY ==
--- OUTSIDE RECORDS SUMMARY | 2024-05-12 12:59 | XMS_ITS | CCD ---
Author Organization [facility] Care Team Providers Care Radiation Technician Name Role Phone NO FAMILY, PHYSICIAN Primary Care Unavailable Torito Garcia Admitting Unavailable Torito Garcia Attending Unavailable Torito Garcia Admitting Unavailable Torito Garcia Attending Unavailable NO FAMILY, PHYSICIAN Primary Care Unavailable Wallace Regalado Admitting Unavailable Wallace Regalado Attending Unavailable NO FAMILY, PHYSICIAN Primary Care Unavailable MAYELA ESPINO Admitting Unavailable MAYELA ESPINO Attending Unavailable REQUEST, NONE LISTED Primary Care Unavaila EDELMIRA Martinez Consulting Unavailable REQUEST, NONE LISTED Primary Care Unavaila ble PAY, DR BOWEN Admitting Unavailable PAY, DR BOWEN Attending Unavailable CHANG, DR RASCON Consulting Unavailable REQUEST, NONE LISTED Primary Care Unavaila ble IMREILLE, JODI Admitting Unavailable MIREILLE, JODI Attending Unavailable MIREILLE, JODI Consulting Unavailable REQUEST, NONE LISTED Primary Care Unavaila ble MIREILLE, JODI Admitting Unavailable MIREILLE, JODI Attending Unavailable MIREILLE, JODI Consulting Unavailable Moni Harris Consulting Unavailable NONE, XXXX Primary Care Physician Unavailab Ayaan Bliss Attending Unavailable Ayaan Reed Attending Unavailable Mirela ROGERS Admitting Unavailable Mirela ROGERS Attending Unavailable Radha Hinds Unavailable MIRELA ROGERS Attending Unavailable Allergies Allergy Classification Reported Allergen(s) Allergy Type Date of Onset Reaction(s) Facility (1 source) No Known Medication Allergies; Translations: [No Known Medication Allergies] Propensity to adverse reactions (disorder) [facility] Repository Medications Current Medications Medication Drug Class(es) Dates Sig (Normalized) Sig (Original) loratadine 10 mg oral tablet (5 sources) Start: 3 End: 3 take 1 tablet by mouth once daily loratadine (Claritin) 10 MG tablet TAKE 1 TABLET BY MOUTH EVERY DAY FOR 10 DAYS 12/02/2022 Active 1 ml medroxyPROGESTERone acetate 150 mg/ml prefilled syringe (3 sources) Progestin Start: 4 medroxyPROGESTERone (Depo-Provera) 150 MG/ML suspension prefilled syringe injection syringe Indications: Encounter for initial prescription of injectable contraceptive Inject 1 mL (150 mg) into the shoulder, thigh, or buttocks 1 (one) time for 1 dose 1 mL 2 07/28/2023 Active methylPREDNISolone 4 mg oral tablet (2 sources) Corticosteroid Start: 3 End: 3 Medrol Dosepack 4 mg Tab = 1 packet(s), Oral, As Directed, as directed on package labeling, X 6 day(s), # 21 tab(s), Refills(s) 0, Pharmacy: [facility]/pharm[facility] #[id number], 167.6, cm, 12/02/22 16:49:00 EDT, Height/Length Dosing, 61.4, kg, 12/02/22 16:49:00 EDT, Weight Dosing Start Date: 12/02/22 Stop Date: 12/08/22 Status: Ordered Multivitamins (2 sources) Start: 3 take 1 tablet by mouth once daily Multivitamins 1 tab(s), Oral, Daily, Refill(s) 0 Start Date: 12/05/22 Status: Ordered Vit-Fe Fumarate-FA ( Multivitamins) 28-0.8 MG tablet (3 sources) Start: 3 Vit-Fe Fumarate-FA ( Multivitamins) 28-0.8 MG tablet Take by mouth. 12/05/2022 Active Problems Active Problems Problem Classification Problem Date [...] including migraine; Translations: [HEADACHE UNSPECIFIED] Onset: 02-17-2022 Menstrual disorders (2 sources) Amenorrhea; Translations: [Amenorrhea, unspecified] 05-05-2024 Chronic Nausea and vomiting (4 sources) Vomiting, unspecified; [...] 05-28-2021 Unclassified (2 sources) Onset: 12-05-2022 12-05-2022 Unclassified (3 sources) OB Reminders Onset: 09-19-2022 09-19-2022 Past or Other Problems Problem Classification Problem [...] Results Test Name Value Interpretation Reference Range Facility HCG ( test) Ql (U)o n 05-05-2024 Interpretation and review of laboratory results Normal [facility] Preg Test, Ur Negative Negative [facility] Nursing Assessmenton 023 Nursing Assessment [id number]#[id number]:127 Normal [facility] Consent for Treatmenton Consent for Treatment [id number]#1.00CD:127 Normal [facility] Discharge Instructionson Discharge Instructions [id number]#[id number]:127 Normal [facility] Inpatient Clinical Summaryon 12-05-2022 Inpatient Clinical Summary [address] [address] Clinical Summary Person Information Name: LUCIAN CONTRERAS/[facility] Age: 21 Years : 2000 Sex: Female PCP: NONE, XXXX Marital Status: Single Race: White Ethnicity: Non- or Language: Slovak Visit Id: Visit Reason: ABDOMINAL PAIN Speciality: Acuity: Enc Type: OB Triage Med Service: Obstetrics Arrival: 12/05/2022 15:05:48 Discharge: 12/05/2022 16:05:00 Dispo Type: Home (Routine DC) Address: [address] [place] [phone] Provider Notes: Diagnosis: Problems Active (12/05/2022) Smoking [...] ( 1.005 and 1.030 ) UA Amorph Egma: Present Measurements: Height: 167.6 cm Weight: 61.8 [...] day. Care Team Members: Attending Physician: Mirela ROGERS DO Consulting Physician: Referring Physician: Follow up: With: Address: When: Mirela ROGERS [facility], [address] [place] [address] [place] [address] Business (1) In 12 days 12/17/2022 Comments: Return if ruptured membranes or vaginal bleeding Return for decreased movement Return for contractions closer, longer, harder Call physician if symptoms worsen Call for severe abdominal pain Call for fever > 100.5 F Call for any problems. Patient Education Information: Second Trimester of , Mvtu-sm-Wuub Normal [facility] Inpatient Patient Summaryon 12-05-2022 Inpatient Patient Summary [address] [address] Patient Discharge Instructions PERSON INFORMATION Name: LUCIAN CONTRERAS Date of : 2000 Current Date: 12/05/2022 16:15:08 PHYSICIANS Admitting Physician: Mirela ROGERS DO Primary Care Physician: NONE, XXXX PCP [...] results: Follow up: With: Address: When: Mirela ROGERS [facility], [address] [place] [address] , [place], [place] [id number] Business (1) In 12 days 12/17/2022 Comments: Return [...] to find a nearby participating provider. Comment: I, LUCIAN CONTRERAS, have received the attached patient education materials/instructi ons and have verbalized understanding. Patient Signature Date [...] day. Last Dose: Next Dose: Pharmacy Information: ADRELL Jessica PATIENT EDUCATION INFORMATION Instructions: Second Trimester of [...] these instructions at home: Medicines ? Take crmk-uyv-tuvuayq and prescription medicines only as told by [...] to exercise (more content not included)... Normal [facility] Insurance Correspondenceon 0 12-05-2022 Insurance Correspondence [id number]#[id number]:127 Normal [facility] UA With Cult Reflexon 2022 Bacteria LM Ql (Urine sed) TRACE Normal Trace [facility] Comment on above: Performed By: #### 1 [id number] ####[facility] [address] [place] [address] Bilirubin Ql (U) Negative Normal Negative [facility] Comment on above: Performed By: #### 1 [id number] ####[facility] [address] [place] [address] Clarity (U) CLOUDY Abnormal Clear [facility] Comment on above: Performed By: #### 1 [id number] ####[facility] [address] [place] [address] Color (U) YELLOW Normal Yellow [facility] Comment on above: Performed By: #### 1 [id number] ####[facility] [address] [place] [address] Crystals LM Ql (Urine sed) Present Normal [facility] Comment on above: Performed By: #### 1 [id number] ####[facility] [address] [facility] [place] [address] Epithelial cells.squamous LM.HPF (Urine sed) [#/Area] 0-2 Normal 0-2 [facility] Comment on above: Performed By: #### 1 [id number] ####[facility] [address] [facility] [place] [address] Glucose Test strip (U) [Mass/Vol] Negative Normal Negative [facility] Comment on above: Performed By: #### 1 [id number] ####[facility] [address] [facility] [place] [address] Hemoglobin Ql (U) Negative Normal Negative [facility] Comment on above: Performed By: #### 1 [id number] ####[address] [address] Ketones (U) [Mass/Vol] Negative Normal Negative [facility] Comment on above: Performed By: #### 1 [id number] ####[place] [address] [facility] [place] [address] [place].plasma/Lithiu m.RBC (Bld) [Mass ratio] 0-3 Normal 0-3 [facility] Comment on above: Performed By: #### 1 [id number] ####[facility] [address] [facility] [place] [address] Mucus Ql (Urine sed) 1+ Normal [facility] Comment on above: Performed By: #### 1 [id number] ####[facility] [address] [facility] [place] [address] Nitrite Ql (U) Negative Normal Negative [facility] Comment on above: Performed By: #### 1 [id number] ####[place] [address] [facility] [place] [address] pH (U) 7.5 [pH] Invalid Interpretation Code 5.0-9.0 [facility] Comment on above: Performed By: #### 1 [id number] ####[facility] [address] [place] [address] Protein (U) [Mass/Vol] Negative Normal Negative [facility] Comment on above: Performed By: #### 1 [id number] ####[facility] [address] [place] [address] Specific gravity (U) [Rel density] 1.015 Invalid Interpretation Code 1.005-1.030 [facility] Comment on above: Performed By: #### 1 [id number] ####[place] [address] Type of Urine collection method Clean Catch Normal [facility] Comment on above: Performed By: #### 1 [id number] ####[place] [address] [place] [address] Urobilinogen Qn (U) 0.2 {Bradly'U}/dL Normal 0.0-1.0 [facility] Comment on above: Performed By: #### 1 [id number] ####[place] [address] WBC Auto Ql (U) TRACE Abnormal Negative [facility] Comment on above: Performed By: #### 1 [id number] ####[facility] [address] [place], [place] [address] WBC LM.HPF (Urine sed) [#/Area] 0-5 Normal 0-5 [facility] Comment on above: Performed By: #### 1 [id number] ####[place] [id number] URINALYSISOrdered By: Rob Obrien on 12-05-2022 Bacteria LM Ql (Urine sed) Trace /HPF Normal Trace/HPF [facility] UA Auto SS Bilirubin Ql (U) Negative [...] (Urine sed) [#/Area] 0-2 /HPF Normal 0-2/HPF [facility] UA Aut o SS Glucose Test strip (U) [Mass/Vol] Negative (12/05/22 3:13 PM) Normal Negative [facility] UA Auto SS Hemoglobin Ql (U) Negative (12/05/22 3:13 PM) Normal Negative [facility] UA Auto SS Ketones (U) [Mass/Vol] Negative (12/05/22 3:13 PM) Normal Negative [facility] UA Auto SS [place].plasma/Lithiu m.RBC (Bld) [Mass ratio] 0-3 /HPF Normal 0-3/HPF [facility] UA Auto SS Mucus Ql (Urine sed) 1+ (12/05/22 3:13 PM) Normal [facility] UA Auto SS Nitrite Ql (U) Negative (12/05/22 3:13 PM) Normal Negative [facility] UA Auto SS pH (U) 7.5 *NA* (12/05/22 3:13 PM) Invalid Interpretation Code 5.0 - 9.0 [facility] UA Auto SS Protein (U) [Mass/Vol] Negative (12/05/22 3:13 PM) Normal Negative [facility] UA Auto SS Specific gravity (U) [Rel density] 1.015 *NA* (12/05/22 3:13 PM) Invalid Interpretation Code 1.005 - 1.030 [facility] UA Auto SS UA Spec Desc Clean Catch (12/05/22 3:13 PM) Normal [facility] UA Auto SS Urobilinogen Qn (U) 0.0583782 {Bradly'U}/dL Normal 0.0 - 1.0 EU/dL [facility] UA Auto SS WBC Auto Ql (U) Trace *ABN* (12/05/22 3:13 PM) Invalid Interpretation Code Negative [facility] UA Auto SS WBC LM.HPF (Urine sed) [#/Area] 0-5 /HPF Normal 0-5/HPF [facility] UA Auto SS Consent for Treatmenton 11-05 Consent for Treatment [id number]#[id number]:127 Normal [facility] Discharge Instructionson Discharge Instructions [id number]#[id number]:127 Normal [facility] ED Clinical Summaryon 2022 ED Clinical Summary [address] [address] ED Clinical Summary Person Information Name: LUCIAN CONTRERAS [place] Age: 21 Years : 2000 Sex: Female Language: Slovak PCP: NONE, XXXX Marital Status: Single Visit [...] 12/02/2022 17:01:53 12/02/2022 17:01:53 12/02/2022 17:01:53 ADDRESS: [address] [place] [phone] PHYS DOC NOTES: MEDICAL INFORMATION: Prescriptions Given: New Medications [id number], [address] [place], [place] [id number], [phone] loratadine (loratadine 10 mg Tab) 1 Tablets By Mouth every day for 10 Days. Refills: 0. methylPREDNISolone (Medrol Dosepack 4 mg Tab) 1 Packets By Mouth As Directed for 6 Days. as directed on package labeling. Refills: 0. PATIENT EDUCATION INFORMATION: Instructions: Allergies, Adult Follow up: With: Address: When: Ryan Link [address], [facility] [address] [place] [address] Business (1) In 3 days 12/05/2022 DIAGNOSIS: Allergic reaction Normal [facility] ED Note-Physicianon 12-03-19 ED Note-Physician Basic Information [...] day(s), # 10 tab(s), Refills(s) 0, Pharmacy: [facility]/pharmacy #[id number], 167.6, cm, 12/02/22 16:49:00 EDT, Height/Length Dosing, 61.4, kg, 12/02/22 16:49:00 EDT, Weight Dosing methylPREDNISolone, = 1 packet(s), Oral, As Directed, as directed on package labeling, X 6 day(s), # 21 tab(s), Refills(s) 0, Pharmacy: [facility]/pharmacy #[id number], 167.6, cm, 12/02/22 16:49:00 EDT, Height/Length [...] 12/05/2022 EDT [address], [address] [place] [address] [facility] (1) Additional Instructions: Patient Education Allergies, Adult Attestation Patient seen and evaluated by the physician driller's assistant. Attending physician was present in the emergency department and supervised care. This visit was performed by both the physician and an APC. I performed all aspects of the MDM as documented. This report was transcribed using voice recognition software. Every effort was made to ensure accuracy, however, inadvertently computerized brand protection manager mistakes may be present. Appropriate healthcare PPE [...] Diagnostic Results No qualifying data available. Normal [facility] Comment on above: Result Comment: Elec tronically [...] at home: Medicines ? Take or apply xllu-buz-xlbppow and prescription medicines only as told by [...] have had (more content not included)... Normal [facility] ED Patient Summaryon 023 ED Patient Summary [address] [id number] Patient Discharge Instructions Person Information Name: LUCIAN CONTRERAS Age: 21 Years Arrival Date: 12/02/2022 16:40:51 Discharge Diagnosis: Allergic reaction Primary Care Physician: NONE, XXXX Provider Information Primary Provider: Ayaan Reed M.D. Advanced Registration Representative:Carroll Keene PA-C The exam and treatment you received in the Emergency Department were for an urgent problem and are not intended as complete care. It is important that you follow up with a doctor, nurse practitioner, or physician?s driller's assistant for ongoing care. If your symptoms [...] Instructions: With: Address: When: Ryan Link [address], [facility] [address] [place] [address] [facility] (1) In 3 days 12/05/2022 In the event that this physician does not participate in your insurance network, please consult with your insurance company to find a nearby participating provider. Patient Education Materials: Allergies, Adult A MESSAGE TO ALL PATIENTS REGARDING OPIOIDS PRESCRIPTION OPIOIDS: WHAT YOU NEED TO KNOW Prescription opioids can be used to help relieve jbhgiwmg-bz-bdwyjn pain and are often prescribed following a [...] guidance from the Food and Drug Administration (www.fda.gov/Drugs/ ResourcesForYou). ? Visit www.cdc.gov/drugove rdose to learn about the risks of opioids abuse and overdose. ? If you believe you may be struggling with addiction, tell your health acute care certified nursing assistant and ask for guidance or call [facility]S National Helpline at 6-468-386-?. l Source: De (more content not included)... Normal [facility] Discharge Instructionson Discharge Instructions [id number]#[id number]:127 Normal [facility] ED Clinical Summaryon 2022 ED Clinical Summary [place] [id number] ED Clinical Summary Person Information Name: BENLUCIAN CASTANON/[facility] Age: 21 Years : 2000 Sex: Female Language: Slovak PCP: NONE, XXXX Marital Status: Single Visit [...] 08/21/2022 22:57:31 08/21/2022 22:57:31 08/21/2022 22:57:31 ADDRESS: [address] [place] [phone] PHYS DOC NOTES: MEDICAL INFORMATION: Prescriptions Given: PATIENT EDUCATION INFORMATION: Instructions: Abdominal Pain During ; First Trimester of Follow up: With: Address: [facility] [address] [place] [address] , [place] [address] Business (1) In 3 days 08/24/2022 Comments: Return to the emergency room if your abdominal pain pain becomes persistent, vaginal bleeding or any new symptom DIAGNOSIS: 1:Abdominal pain; 2: Normal [facility] ED Note-Physicianon 08-23-19 ED Note-Physician Basic Information [...] patient has documented intrauterine ) [MIPS PERFORMANCE EXCEPTION/EXCLUSION ] [ ] The patient is pregant and presents with abdominal pain or vaginal bleeding. A trans-abdominal or trans-vaginal ultrasound was NOT performed, no reason documented. [DOES NOT SATISFY MIPS PERFORMANCE] Medical Decision Making MEDICAL DECISION MAKING Number and Complexity of Problems Differential Diagnosis: [] [facility] Data External documents reviewed: [] [...] medications Follow-up With When Contact Information Mirela GRAHAMZIO In 3 days 08/24/[address] , [place] [address]- Business (1) Additional Instructions: Return to the [...] (08/21/22 19:49:0 (more content not included)... Normal [facility] Comment on above: Result Comment: Elec tronically [...] keep your urine pale yellow. ? Take vqgj-ofj-xixjhus and prescription medicines only as told by [...] provider. Document Revised: 12/04/2020 Document Reviewed: 12/04/2020 [employer] Patient Education ? 2022 gauzz. First Trimester of The first trimester of [...] Stop exercising (more content not included)... Normal [facility] ED Patient Summaryon 023 ED Patient Summary [place] [id number] Patient Discharge Instructions Person Information Name: LUCIAN CONTRERAS Age: 21 Years Arrival Date: 08/21/2022 19:18:51 Discharge Diagnosis: 1:Abdominal pain; 2: Primary Care Physician: NONE, XXXX Provider Information Primary Provider: Ayaan Reed M.D. Advanced Registration Representative:None The exam and treatment you received in the Emergency Department were for an urgent problem and are not intended as complete care. It is important that you follow up with a doctor, nurse practitioner, or physician?s driller's assistant for ongoing care. If your symptoms become worse or you do not improve as expected and you are unable to reach your usual health care provider, you should return to the Emergency Department. We are available 24 hours a day. LUCIAN CONTRERAS has been given the following list of patient education materials, prescriptions and follow-up instructions: Follow-up Instructions: With: Address: When: Mirela SUE [facility], [address] [place] [address] , [place] [address] Business (1) In 3 days 08/24/2022 Comments: [...] opioids can be used to help relieve iybowzud-jk-qpsljr pain and are often prescribed following a [...] guidance from the Food and Drug Administration (www.fda.gov/Drugs/ ResourcesForYou). ? Visit www.cdc.gov/drugove rdose to learn about the risks of opioids abuse and overd (more content not included)... Normal [facility] US 1st Trimesteron 08-22-2022 US 1st [...] uterine body/fundus, without significant surrounding subchorionic hemorrhage. [place] Rump Length: 0.7 cm, which corresponds Composite [...] Para 1 SAB 1 FHR (bpm) 129 [place] Rump Length (in cm) 0.65 Normal [facility] ABO/Rhon 08-21-2022 ABO/Rh Negative Invalid Interpretation Code [facility] Comment on above: Performed By: #### 2 [id number] ####[facility] [address] [place] [address] Auto Diffon 08-21-2022 Basophils/100 WBC (Bld) 0.5 % Normal 0.0-2.0 [facility] Comment on above: Order Comment: Order Added by Discern Expert. Performed By: #### 1 [id number], 09908786, 2723552, 4661110, [id number] ####[place] [address] [place] [address] Basophils/Leukocytes Auto (Bld) [Pure # fraction] 0.0 E9/L Normal 0.0-0.2 [facility] Comment on above: Order Comment: Order Added by Discern Expert. Performed By: #### 1 [id number], [id number], 1441492, 6948618, 3101811 ####[address] [address] Eosinophils/100 WBC (Bld) 0.5 % Normal 0.0-8.0 [facility] Comment on above: Order Comment: Order Added by Discern Expert. Performed By: #### 1 [id number], [id number], 9945820, 5501280, 6119391 ####[address] [address] Eosinophils/Leukocyte s Auto (Bld) [Pure # fraction] 0.0 E9/L Normal 0.0-0.5 [facility] Comment on above: Order Comment: Order Added by Zackary Expert. Performed By: #### 1 9079549, 98541358, 4270091, 2258844, 2970424 ####[address] [address] Lymphocytes/100 WBC (Bld) 15.7 % Normal 14.0-50.0 [facility] Comment on above: Order Comment: Order Added by Zackary Expert. Performed By: #### 1 [id number], 22520303, 0359001, 9341878, 6515290 ####[address] [address] Lymphocytes/Leukocyte s Auto (Bld) [Pure # fraction] 1.1 E9/L Normal 1.0-4.0 [facility] Comment on above: Order Comment: Order Added by Zackary Expert. Performed By: #### 1 5979793, [id number], 1407048, 8732905, 3632844 ####[facility] [address] [place] [address] Monocytes/100 WBC (Bld) 4.7 % Normal 4.0-14.0 [facility] Comment on above: Order Comment: Order Added by Zackary Expert. Performed By: #### 1 5289969, 12963971, 5212219, 5788987, 0284264 ####[facility] [address] [place] [address] Monocytes/Leukocytes Auto (Bld) [Pure # fraction] 0.3 E9/L Normal 0.2-1.0 [facility] Comment on above: Order Comment: Order Added by Zackary Expert. Performed By: #### 1 [id number], 45221753, 5278246, 2738728, 9700603 ####[place] [address] [place] [address] Neutrophils/100 WBC (Bld) 78.6 % High 36.0-75.0 [facility] Comment on above: Order Comment: Order Added by Zackary Expert. Performed By: #### 1 2374750, 26172601, 6980024, 2291191, 5359097 ####[place] [address] [place] [address] Neutrophils/Leukocyte s Auto (Bld) [Pure # fraction] 5.7 E9/L Normal 2.0-7.5 [facility] Comment on above: Order Comment: Order Added by Zackary Expert. Performed By: #### 1 3941770, 97996986, 3167189, 1154556, 7103009 ####[place] [address] [place] [address] BMPon 08-21-2022 Creatinine [Mass/Vol] 0.7 mg/dL Normal 0.5-1.3 [facility] Comment on above: Performed By: #### 1 7456552, 88435742, 0770522, 8381614, 1908408 ####[facility] [address] [place] [address] Urea nitrogen [Mass/Vol] 8 mg/dL Normal 5-21 [facility] Comment on above: Performed By: #### 1 5702249, 38132692, 3228995, 1343281, 4489419 ####[facility] [address] [place] [address] Urea nitrogen/Creatinine [Mass ratio] 11 No Units Normal 10-20 [facility] Comment on above: Performed By: #### 1 7232073, 37792285, 5400632, 7114869, 8215512 ####[facility] [address] [facility] [place] [address] Anion gap [Moles/Vol] 15 mmol/L Normal 6-16 [facility] Comment on above: Performed By: #### 1 [id number], [id number], 3021047, 7932085, 7328771 ####[facility] [address] [place] [address] Calcium [Mass/Vol] 9.1 mg/dL Normal 8.9-11.1 [facility] Comment on above: Performed By: #### 1 [id number], [id number], 8314969, 7974562, 0418185 ####[facility] [address] [place] [address] Chloride [Moles/Vol] 102 mmol/L Normal 101-111 [facility] Comment on above: Performed By: #### 1 [id number], 95091351, 3414990, 3982799, 2213528 ####[facility] [address] [place] [address] CO2 [Moles/Vol] 23 mmol/L Normal 21-31 [facility] Comment on above: Performed By: #### 1 [id number], 48571678, 5543110, 6508457, 8027653 ####[facility] [address] [place] [address] Glucose [Mass/Vol] 92 mg/dL Normal 55-199 [facility] Comment on above: Result Comment: If t his glucose result represents a fasting glucose, interpretation should refer to the following reference range: 55-99 mg/dL Performed By: #### 1 [id number], 29561156, 1208295, 9684829, 1850498 ####[facility] [address] [place] [address] Potassium [Moles/Vol] 3.5 mmol/L Normal 3.5-5.3 [facility] Comment on above: Performed By: #### 1 0800491, 13423803, 3124381, 1925918, 3903200 ####[facility] [address] [place] [address] Sodium [Moles/Vol] 136 mmol/L Normal 135-145 [facility] Comment on above: Performed By: #### 1 4239481, 70127348, 7026254, 5575679, 6697817 ####[facility] [address] [place] [address] BhCG Quanton 08-21-2022 [place] [address] m[IU]/mL High 1-3 [facility] Comment on above: Result Comment: GEST ATIONAL AGE HCG RANGE (mIU/mL) NON- <1-3 0.2-1 WEEKS 5-50 1-2 WEEKS 50-500 2-3 WEEKS 100-5,000 3-4 WEEKS 500-10,000 4-5 WEEKS 1,000-50,000 5-6 WEEKS 10,000-100,000 6-8 WEEKS 15,000-200,000 8-12 WEEKS 10,000-100,000 Performed By: #### 2 400551 ####[facility] [address] [place] [address] CBC w/ Auto Diffon Erythrocyte distribution width (RBC) [Ratio] 12.3 % Normal 10.9-14.2 [facility] Comment on above: Performed By: #### 1 3502707, 64058320, 3082421, 8551192, 5759909 ####[facility] [address] [place] [address] Hematocrit (Bld) [Volume fraction] 36.9 % Normal 34.0-46.0 [facility] Comment on above: Performed By: #### 1 6908100, 85205495, 2263899, 2667013, 7945413 ####[facility] [address] [place] [address] Hemoglobin (Bld) [Mass/Vol] 12.4 g/dL Normal 12.0-16.0 [facility] Comment on above: Performed By: #### 1 7700713, 00116588, 7625130, 4800539, 3142099 ####[place] [address] [place] [id number] MCH (RBC) [Entitic mass] 30.4 pg Normal 27.0-34.0 [facility] Comment on above: Performed By: #### 1 9906618, 89938927, 7968931, 0181337, 6436830 ####[place] [address] MCHC (RBC) [Mass/Vol] 33.5 g/dL Normal 31.4-36.0 [facility] Comment on above: Performed By: #### 1 2518367, 16461214, 7321283, 0504447, 3412011 ####[address] [address] MCV (RBC) [Entitic vol] 90.8 fL Normal 80.0-100.0 [facility] Comment on above: Performed By: #### 1 2080697, 78831638, 0845032, 1864845, 9727393 ####[place] [address] [address] [place] [address] Platelet mean volume (Bld) [Entitic vol] 9.1 fL Normal 6.4-10.8 [facility] Comment on above: Performed By: #### 1 2322022, 26467593, 4456396, 8264967, 3544372 ####[place] [address] Platelets (Bld) [#/Vol] 224.0 E9/L Normal 150.0-500.0 [facility] Comment on above: Performed By: #### 1 8505361, 47434917, 5483970, 0607624, 4659797 ####[facility] [address] [place] [address] RBC (Bld) [#/Vol] 4.1 E12/L Low 4.3-5.9 [facility] Comment on above: Performed By: #### 1 8060095, 20355137, 0099497, 5357810, 3013519 ####[facility] [address] [place] [address] WBC corrected for nucl RBC Auto (Bld) [#/Vol] 7.2 E9/L Normal 4.0-11.0 [facility] Comment on above: Performed By: #### 1 4669430, 81160493, 8816735, 7708405, 0919501 ####[facility] [address] [place] [address] Consent for Treatmenton 08-04 Consent for Treatment [id number] 3 [id number] C1#[id number]:[id number] Normal [facility] PT & PTTon 08-21-2022 aPTT Coag (PPP) [Time] 36.1 second(s) Normal 25.1-36.5 [facility] Comment on above: Result Comment: Para meter 15 days - 4 weeks 1 - 5 months 6 - 11 months 1 - 5 years 6 - 10 years 11 - 17 years PTT Mean: 35.4 (27.6-45.6) Mean: 33.5 (24.8-40.7) Mean: 32.4 (25.1-40.7) Mean: 31.6 (24.0-39.2) Mean: 31.6 (26.9-38.7) Mean: 31.0 (24.6-38.4) Pediatric Reference ranges were obtained from a study by ronny Long al. prepared from 1437 samples obtained at 7 different centers using the same coagulation reagent and instrumentation as [facility]. Currently there are no coagulation studies available worldwide for children to 14 days, and no normal ranges. Heparin therapeutic range (represented by Anti-Factor Xa activity of 0.2 - 0.4 U/mL) corresponds to PTT of 56.6 - 109.0 sec. Performed By: #### 1 9991130, 58219201, 8040000, 3844122, 9273460 ####[facility] [address] [place] [address] INR Coag (PPP) [Relative time] 1.1 {INR} Invalid Interpretation Code [facility] Comment on above: Result Comment: INR results are specifically intended to assess patients stabilized on long-term Anticoagulation therapy suggested INR?s ?Less Intensive Anticoagulation? 2.0 ? 3.0 Conventional Range 3.0 ? 4.5 Performed By: #### 1 9406049, 63277174, 8872001, 8378679, 4561880 ####[facility] [address] [place] [address] PT Coag (PPP) [Time] 12.2 second(s) Normal 9.4-12.5 [facility] Comment on above: Result Comment: 15 d [...] the same coagulation reagent and instrumentation as [facility]. Currently there are no coagulation studies available worldwide for children to 14 days, and no normal ranges. Performed By: #### 1 3682845, 16445994, 9703553, 9333509, 6403308 ####[facility] [address] [place] [address] With [facility] 2022 Bacteria LM Ql (Urine sed) 1+ /HPF Abnormal Trace [facility] Comment on above: Performed By: #### 1 0173488 ####[address] [address] Crystals LM Ql (Urine sed) Present Normal [facility] Comment on above: Performed By: #### 1 8001849 ####[address] [address] Epithelial cells.squamous LM.HPF (Urine sed) [#/Area] 0-2 Normal 0-2 [facility] Comment on above: Performed By: #### 1 4441256 ####[address] [address] [place].plasma/Lithiu m.RBC (Bld) [Mass ratio] 0-3 Normal 0-3 [facility] Comment on above: Performed By: #### 1 2242105 ####[address] [address] Mucus Ql (Urine sed) 1+ Normal [facility] Comment on above: Performed By: #### 1 5998317 ####[address] [address] WBC LM.HPF (Urine sed) [#/Area] 0-5 Normal 0-5 [facility] Comment on above: Performed By: #### 1 6499271 ####[address] [address] Bilirubin Ql (U) Negative Normal Negative [facility] Comment on above: Performed By: #### 1 5968753 ####[address] [address] Clarity (U) CLEAR Normal Clear [facility] Comment on above: Performed By: #### 1 9163845 ####[address] [address] Color (U) YELLOW Normal Yellow [facility] Comment on above: Performed By: #### 1 3078086 ####[address] [place] [address] Glucose Test strip (U) [Mass/Vol] Negative Normal Negative [facility] Comment on above: Performed By: #### 1 5447269 ####[address] [address] Hemoglobin Ql (U) Negative Normal Negative [facility] Comment on above: Performed By: #### 1 3937083 ####[address] [address] Ketones (U) [Mass/Vol] 3+ Abnormal Negative [facility] Comment on above: Performed By: #### 1 1306246 ####[address] [address] Nitrite Ql (U) Negative Normal Negative [facility] Comment on above: Performed By: #### 1 8046818 ####[address] [address] pH (U) 6.5 [pH] Invalid Interpretation Code 5.0-9.0 [facility] Comment on above: Performed By: #### 1 9815580 ####[address] [address] Protein (U) [Mass/Vol] Negative Normal Negative [facility] Comment on above: Performed By: #### 1 2847113 ####[address] [address] Specific gravity (U) [Rel density] 1.025 Invalid Interpretation Code 1.005-1.030 [facility] Comment on above: Performed By: #### 1 2550241 ####[address] [address] Type of Urine collection method Clean Catch Normal [facility] Comment on above: Performed By: #### 1 8997332 ####[address] [address] Urobilinogen Qn (U) 0.2 {Bradly'U}/dL Normal 0.0-1.0 [facility] Comment on above: Performed By: #### 1 9889904 ####[facility] [address] [place] [address] WBC Auto Ql (U) TRACE Abnormal Negative [facility] Comment on above: Performed By: #### 1 5886469 ####[facility] [address] [place] [address] eGFRon 08-21-2022 GFR/1.73 sq M.predicted among non-blacks MDRD (S/P/Bld) [Vol rate/Area] 126 mL/min/1.73 m2 Normal >=59 [facility] Comment on above: Order Comment: Order added by Discern Expert. Result Comment: Cath Lab Radiological Technologist shonna kidney disease could be indicated at eGFR's of less than 60 mL/min/1.73m2. Kidney failure is indicated at less than 15 mL/min/1.73m2. Performed By: #### 1 5818141, 13089821, 2421679, 1901019, 2356033 ####[facility] [address] [place] [address] XR HAND RT MIN 3Von 04-18-19 23 XR HAND RT MIN 3V EXAM: XR HAND RT MIN 3V HISTORY: Pain COMPARISON: None. TECHNIQUE: 3 views of the right hand FINDINGS: No acute fracture is seen. Joint alignment is normal. Joint spaces are preserved. Soft tissues appear unremarkable. IMPRESSION: No acute fracture or malalignment. Electronically authenticated by: MONI HARRIS Date: 2022-04-18 00:18 Normal [facility] ER URINE PROFILEon 2 Bilirubin Ql (U) Negative Normal NEGATIVE [facility] Comment on above: Performed By: #### U MICRO, ERUR, PREGU #### [facility] [address] [address] [address] Bill Gan Clarity (U) CLEAR Normal CLEAR [facility] Comment on above: Performed By: #### U MICRO, ERUR, PREGU #### [facility] [address] [address] [address] Bill Gan Color (U) YELLOW Normal YELLOW [facility] Comment on above: Performed By: #### U MICRO, ERUR, PREGU #### [facility] [address] [address] [address] Bill FOSTER A micrscopic examination will be performed if indicated. Normal [facility] Comment on above: Performed By: #### U MICRO, ERUR, PREGU #### [facility] [address] [address] [address] Bill Gan Glucose Ql (U) Negative Normal NEGATIVE [facility] Comment on above: Performed By: #### U MICRO, ERUR, PREGU #### [facility] [address] [address] [address] Bill Gan Hemoglobin Ql (U) Negative Normal NEGATIVE [facility] Comment on above: Performed By: #### U MICRO, ERUR, PREGU #### [facility] [address] [place] [address] Dr. Bill Gan Ketones Ql (U) Negative Normal NEGATIVE [facility] Comment on above: Performed By: #### U MICRO, ERUR, PREGU #### [facility] [address] [place] [address] Dr. Bill Gan LEUKOCYTES Negative Normal NEGATIVE [facility] Comment on above: Performed By: #### U MICRO, ERUR, PREGU #### [facility] [address] [place] [address] Dr. Bill Gan Nitrite Ql (U) Negative Normal NEGATIVE [facility] Comment on above: Performed By: #### U MICRO, ERUR, PREGU #### [facility] [address] [address] [address] Bill Gan pH (U) 7.5 [pH] Normal 5-9 [facility] Comment on above: Performed By: #### U MICRO, ERUR, PREGU #### [facility] [address] [place] [address] Dr. Bill Gan Protein (U) [Mass/Vol] 100 mg/dL Abnormal NEGATIVE/ TRACE [facility] Comment on above: Performed By: #### U MICRO, ERUR, PREGU #### [facility] [address] [address] [address] Bill Gan SPEC GRAVITY 1.020 Normal 1.005-<=1.025 [facility] Comment on above: Performed By: #### U MICRO, ERUR, PREGU #### [facility] [address] [place] [address] Dr. Bill Gan UR MICRO IND INDICATED Normal [facility] Comment on above: Performed By: #### U MICRO, ERUR, PREGU #### [facility] [address] [place] [address] Dr. iBll Gan Urobilinogen Qn (U) 2.0 {Bradly'U}/dL Abnormal 0.2 - 1. 0 [facility] Comment on above: Performed By: #### U MICRO, ERUR, PREGU #### [facility] [address] [place] [address] Dr. Bill Gan URon 02-14-2022 , QUAL Negative Normal NEGATIVE [facility] Comment on above: Performed By: #### U MICRO, ERUR, PREGU #### [facility] [address] [place] [address] Dr. Bill Gan URINE MICROSCOPIC ONLYon BACTERIA NONE SEEN Normal NONE SEEN [facility] Comment on above: Performed By: #### U MICRO, ERUR, PREGU #### [facility] [address] [place] [address] Dr. Bill Gan Bacteria identified Cx Nom (U) NOT INDICATED Normal [facility] Comment on above: Performed By: #### U MICRO, ERUR, PREGU #### [facility] [address] [place] [address] Dr. Bill Gan CAST NONE SEEN Normal NONE SEEN [facility] Comment on above: Performed By: #### U MICRO, ERUR, PREGU #### [facility] [address] [place] [address] Dr. Bill Gan Crystals LM Nom (Urine sed) NONE SEEN Normal NONE SEEN [facility] Comment on above: Performed By: #### U MICRO, ERUR, PREGU #### [facility] [address] [address] [address] Bill Gan Epithelial cells LM Ql (Urine sed) MODERATE Abnormal NONE SEEN /RARE [facility] Comment on above: Performed By: #### U MICRO, ERUR, PREGU #### [facility] [address] [place] [address] Dr. Bill Gan MUCOUS NONE SEEN Normal NONE SEEN [facility] Comment on above: Performed By: #### U MICRO, ERUR, PREGU #### [facility] [address] [address] [address] Bill Gan RBC NONE SEEN Abnormal 0-2 [facility] Comment on above: Performed By: #### U MICRO, ERUR, PREGU #### [facility] [address] [place] [address] Dr. Bill Gan WBC NONE SEEN Normal NONE SEEN [facility] Comment on above: Performed By: #### U MICRO, ERUR, PREGU #### [facility] [address] [place] [address] Dr. Bill Gan ABO/RH Typeon 06-05-2021 ABO and Rh group Nom (Bld) Blood group A Rh(D) negative Normal [facility] Comment on above: Result Comment: PERF ORMED BY: [place] [address] PATHOLOGIST SPECIAL EDUCATION EDUCATIONAL ASSISTANT BON ZAYAS M.D. Basic Metabolic Panelon 0 Calcium [Mass/Vol] 8.8 mg/dL Normal 8.2-10.2 [facility] Comment on above: Performed By: #### C BC, BMP, HCGQNT #### [facility] [address] [place] [address] [place] Chloride [Moles/Vol] 105 mmol/L Normal 95-114 [facility] Comment on above: Performed By: #### C BC, BMP, HCGQNT #### [facility] [address] [place] [address] [place] CO2 [Moles/Vol] 23.8 mmol/L Normal 22.0-30.[address] [facility] Comment on above: Performed By: #### C BC, BMP, HCGQNT #### [facility] [address] Creatinine [Mass/Vol] 0.75 mg/dL Normal 0.44-1.03 [facility] Comment on above: Performed By: #### C BC, BMP, HCGQNT #### [facility] [address] [place] [address] [place] Creatinine Clr Calc Pharmacy 101.10 [facility] Comment on above: Performed By: #### C BC, BMP, HCGQNT #### [facility] [address] Estimated GFR ( Chasity > 60 [facility] Comment on above: Result Comment: GFR estimated reference range: According to KDOQI guidelines, <60 ml/min/1.73m2 is sufficient to diagnose a patient with chronic kidney disease. Performed By: #### C BC, BMP, HCGQNT #### [facility] [address] Estimated GFR (Non- Am > 60 [facility] Comment on above: Performed By: #### C BC, BMP, HCGQNT #### [facility] [address] Glucose [Mass/Vol] 93 mg/dL Normal 70-100 [facility] Comment on above: Result Comment: [place] om Glucose Reference Range is dependent on time and content of last meal. Glucose of more than 200 mg/dL in a nonstressed, ambulatory subject supports the diagnosis of Diabetes Mellitus. ADA recommended reference range Performed By: #### C BC, BMP, HCGQNT #### [facility] [address] Potassium [Moles/Vol] 3.6 mmol/L Normal 3.5-5.1 [facility] Comment on above: Performed By: #### C BC, BMP, HCGQNT #### [facility] [address] Sodium [Moles/Vol] 136 mmol/L Normal 136-146 [facility] Comment on above: Performed By: #### C BC, BMP, HCGQNT #### [facility] [address] Urea nitrogen [Mass/Vol] 8 mg/dL Low - [facility] Comment on above: Performed By: #### C BC, BMP, HCGQNT #### [address] Complete Blood Count Auto Di ffon 06-05-2021 Basophils (Bld) [#/Vol] 0.1 10*3/uL Normal 0.0-0.2 [facility] Comment on above: Result Comment: PERF ORMED BY: [place] [address] PATHOLOGIST SPECIAL EDUCATION EDUCATIONAL ASSISTANT BON ZAYAS M.D. Performed By: #### C BC, BMP, HCGQNT #### [address] Basophils/100 WBC (Bld) 1.3 % Normal . [facility] Comment on above: Performed By: #### C BC, BMP, HCGQNT #### [facility] [address] [place] [address] Eosinophils (Bld) [#/Vol] 0.1 10*3/uL Normal 0.0-0.45 [facility] Comment on above: Performed By: #### C BC, BMP, HCGQNT #### [address] Eosinophils/100 WBC (Bld) 2.2 % Normal . [facility] Comment on above: Performed By: #### C BC, BMP, HCGQNT #### [facility] [address] [place] [address] Erythrocyte distribution width (RBC) [Ratio] 12.8 % Normal 11.9-15.3 [facility] Comment on above: Performed By: #### C BC, BMP, HCGQNT #### [facility] [address] [place] [address] Hematocrit (Bld) [Volume fraction] 36.8 % Normal 34.0-46.4 [facility] Comment on above: Performed By: #### C BC, BMP, HCGQNT #### [address] Hemoglobin (Bld) [Mass/Vol] 12.3 g/dL Normal 11.8-15.4 [facility] Comment on above: Performed By: #### C BC, BMP, HCGQNT #### [address] Lymphocytes (Bld) [#/Vol] 2.5 10*3/uL Normal 1.00-4.8 [facility] Comment on above: Performed By: #### C BC, BMP, HCGQNT #### [address] Lymphocytes/100 WBC (Bld) 39.4 % Normal . [facility] Comment on above: Performed By: #### C BC, BMP, HCGQNT #### [address] MCH (RBC) [Entitic mass] 30.6 pg Normal 24.7-34.3 [facility] Comment on above: Performed By: #### C BC, BMP, HCGQNT #### [address] MCV (RBC) [Entitic vol] 91.3 fL Normal 80-100 [facility] Comment on above: Performed By: #### C BC, BMP, HCGQNT #### [address] Mean Corpuscular HGB Conc 33.6 g/dL Normal 32.0-35.0 [facility] Comment on above: Performed By: #### C BC, BMP, HCGQNT #### [address] Monocytes (Bld) [#/Vol] 0.3 10*3/uL Normal 0.0-0.8 [facility] Comment on above: Performed By: #### C BC, BMP, HCGQNT #### [place] [address] [place] Monocytes/100 WBC (Bld) 4.8 % Normal . [facility] Comment on above: Performed By: #### C BC, BMP, HCGQNT #### [facility] [address] [place] [address] [place] Neutrophils (Bld) [#/Vol] 3.3 10*3/uL Normal 1.8-7.7 [facility] Comment on above: Performed By: #### C BC, BMP, HCGQNT #### [facility] [address] Neutrophils/100 WBC (Bld) 52.3 % Normal . [facility] Comment on above: Performed By: #### C BC, BMP, HCGQNT #### [address] Nucleated RBC/100 WBC (Bld) [Ratio] 0.0 % Normal 0-0.5 [facility] Comment on above: Performed By: #### C BC, BMP, HCGQNT #### [address] Platelet mean volume (Bld) [Entitic vol] 9.1 fL Normal 6.3-10.7 [facility] Comment on above: Performed By: #### C BC, BMP, HCGQNT #### [place] [address] [place] Platelets (Bld) [#/Vol] 216 10*3/uL Normal 150-450 [facility] Comment on above: Performed By: #### C BC, BMP, HCGQNT #### [facility] [address] [place] [address] [place] RBC (Bld) [#/Vol] 4.03 10*6/uL Normal 3.60-5.00 [facility] Comment on above: Performed By: #### C BC, BMP, HCGQNT #### [place] [address] [place] WBC (Bld) [#/Vol] 6.3 10*3/uL Normal 4.5-11.0 [facility] Comment on above: Performed By: #### C BC, BMP, HCGQNT #### [facility] [address] [place] [address] [place] Dipstick and Microscopicon 0 06-05-2021 Appearance (U) Clear Normal Clear [facility] Comment on above: Order Comment: Name Collection Type:: Clean-Voided Midstream Performed By: #### C UU, ADDONUAPLUS #### [place] [address] [place] Bacteria,Urine None Seen Normal None Seen [facility] Comment on above: Order Comment: Name Collection Type:: Clean-Voided Midstream Performed By: #### C UU, ADDONUAPLUS #### [place] [address] [place] Bilirubin,Urine Negative Normal Negative [facility] Comment on above: Order Comment: Name Collection Type:: Clean-Voided Midstream Performed By: #### C UU, ADDONUAPLUS #### [address] Color (U) Yellow Normal Yellow [facility] Comment on above: Order Comment: Name Collection Type:: Clean-Voided Midstream Performed By: #### C UU, ADDONUAPLUS #### [address] Glucose Ql (U) Normal Normal Normal [facility] Comment on above: Order Comment: Name Collection Type:: Clean-Voided Midstream Performed By: #### C UU, ADDONUAPLUS #### [place] [address] [place] Hyaline Casts,Urine 0-8 Normal 0-8 [facility] Comment on above: Order Comment: Name Collection Type:: Clean-Voided Midstream Result Comment: PERF ORMED BY: [place] [address] PATHOLOGIST SPECIAL EDUCATION EDUCATIONAL ASSISTANT BON ZAYAS M.D. Performed By: #### C UU, ADDONUAPLUS #### [facility] [address] [place] [address] [place] Ketones Ql (U) Trace High Negative [facility] Comment on above: Order Comment: Name Collection Type:: Clean-Voided Midstream Performed By: #### C UU, ADDONUAPLUS #### [facility] [address] [place] [address] Leukocyte esterase Test strip Ql (U) 1+ High Negative [facility] Comment on above: Order Comment: Name Collection Type:: Clean-Voided Midstream Performed By: #### C UU, ADDONUAPLUS #### [place] [address] [place] Nitrite,Urine Negative Normal Negative [facility] Comment on above: Order Comment: Name Collection Type:: Clean-Voided Midstream Performed By: #### C UU, ADDONUAPLUS #### [address] Occult Blood,Urine 2+ High Negative [facility] Comment on above: Order Comment: Name Collection Type:: Clean-Voided Midstream Result Comment: PERF ORMED BY: [place] [address] PATHOLOGIST SPECIAL EDUCATION EDUCATIONAL ASSISTANT BON ZAYAS M.D. Performed By: #### C UU, ADDONUAPLUS #### [address] pH (U) 7.0 [pH] Normal 5.0-9.0 [facility] Comment on above: Order Comment: Name Collection Type:: Clean-Voided Midstream Performed By: #### C UU, ADDONUAPLUS #### [facility] [address] [place] [address] [place] Protein,Urine Trace High Negative [facility] Comment on above: Order Comment: Name Collection Type:: Clean-Voided Midstream Performed By: #### C UU, ADDONUAPLUS #### [place] [address] [place] RBC LM.HPF (Urine sed) [#/Area] 0 /[HPF] Normal 0-4 [facility] Comment on above: Order Comment: Name Collection Type:: Clean-Voided Midstream Performed By: #### C UU, ADDONUAPLUS #### [facility] [address] [place] [address] Specificy [place],Urine 1.027 Normal 1.001-1.030 [facility] Comment on above: Order Comment: Name Collection Type:: Clean-Voided Midstream Performed By: #### C UU, ADDONUAPLUS #### [facility] [address] [place] [address] Squamous Epithelial Cell,Urine 3-4 High 0-2 [facility] Comment on above: Order Comment: Name Collection Type:: Clean-Voided Midstream Performed By: #### C UU, ADDONUAPLUS #### [address] Urobilinogen,Urine Normal Normal Normal [facility] Comment on above: Order Comment: Name Collection Type:: Clean-Voided Midstream Performed By: #### C UU, ADDONUAPLUS #### [address] WBC,Urine 5-9 High 0-4 [facility] Comment on above: Order Comment: Name Collection Type:: Clean-Voided Midstream Performed By: #### C UU, ADDONUAPLUS #### [address] HCG,Quantitativeon 2 HCG,Quantitative 690.11 m[iU]/mL Normal Fir [facility] Comment on above: Result Comment: Appr oximate Approximate hCG Gestational Age Range (mIU/ml) (weeks) 0.2-1 5-50 1-2 50-500 2-3 100-5,000 3-4 500-10,000 4-5 1,000-50,000 5-6 10,000-100,000 6-8 15,000-200,000 8-12 10,000-100,000 PERFORMED BY: [place] [address] PATHOLOGIST SPECIAL EDUCATION EDUCATIONAL ASSISTANT BON ZAYAS M.D. Performed By: #### C BC, BMP, HCGQNT #### [facility] [address] Rhogam Workupon 06-05-2021 RHOGAM DOSE NONROUTINE [facility] Comment on above: Result Comment: 1 do se(300mcg)of RhoGAM indicated PERFORMED BY: [place] [address] PATHOLOGIST SPECIAL EDUCATION EDUCATIONAL ASSISTANT BON ZAYAS M.D. Rhogam Candidate Yes Normal [facility] Urine Cultureon 06-05-2021 Bacteria identified Cx Nom (U) 10,000 colonies/ml mixed bacterial skin contaminants 2 Days PERFORMED BY: [place] [address] PATHOLOGIST SPECIAL EDUCATION EDUCATIONAL ASSISTANT BON ZAYAS M.D. [facility] Comment on above: Performed By: #### C UU, ADDONUAPLUS #### [facility] [address] [place] [address] Basic Metabolic Panelon 05-08 Calcium [Mass/Vol] 8.9 mg/dL Normal 8.2-10.2 [facility] Comment on above: Performed By: #### B MP, HCGQNT #### [facility] [address] [place] [address] [place] Chloride [Moles/Vol] 106 mmol/L Normal 95-114 [facility] Comment on above: Performed By: #### B MP, HCGQNT #### [facility] [address] [place] [address] [place] CO2 [Moles/Vol] 21.5 mmol/L Low 22.0-30.[address] [facility] Comment on above: Performed By: #### B MP, HCGQNT #### [facility] [address] [place] [address] [place] Creatinine [Mass/Vol] 0.73 mg/dL Normal 0.44-1.03 [facility] Comment on above: Performed By: #### B MP, HCGQNT #### [facility] [address] [place] [address] [place] Creatinine Clr Calc Pharmacy 103.87 [facility] Comment on above: Performed By: #### B MP, HCGQNT #### [facility] [address] Estimated GFR ( Chasity > 60 [facility] Comment on above: Result Comment: GFR estimated reference range: According to KDOQI guidelines, <60 ml/min/1.73m2 is sufficient to diagnose a patient with chronic kidney disease. Performed By: #### B MP, HCGQNT #### [address] Estimated GFR (Non- Am > 60 [facility] Comment on above: Performed By: #### B BHUMIKA, HCGQNT #### [address] Glucose [Mass/Vol] 110 mg/dL High 70-100 [facility] Comment on above: Result Comment: [place] om Glucose Reference Range is dependent on time and content of last meal. Glucose of more than 200 mg/dL in a nonstressed, ambulatory subject supports the diagnosis of Diabetes Mellitus. ADA recommended reference range Performed By: #### B MP, HCGQNT #### [address] Potassium [Moles/Vol] 3.2 mmol/L Low 3.5-5.1 [facility] Comment on above: Performed By: #### B MP, HCGQNT #### [facility] [address] [place] [address] [place] Sodium [Moles/Vol] 134 mmol/L Low 136-146 [facility] Comment on above: Performed By: #### B MP, HCGQNT #### [facility] [address] [place] [address] [place] Urea nitrogen [Mass/Vol] 7 mg/dL Low 9-23 [facility] Comment on above: Performed By: #### B MP, HCGQNT #### [facility] [address] [place] [address] Complete Blood Count Auto Di ffon 05-28-2021 Basophils (Bld) [#/Vol] 0.1 10*3/uL Normal 0.0-0.2 [facility] Comment on above: Result Comment: PERF ORMED BY: [place] [address] PATHOLOGIST SPECIAL EDUCATION EDUCATIONAL ASSISTANT BON ZAYAS M.D. Performed By: #### C BC #### [address] Basophils/100 WBC (Bld) 1.8 % Normal . [facility] Comment on above: Performed By: #### C BC #### [address] Eosinophils (Bld) [#/Vol] 0.1 10*3/uL Normal 0.0-0.45 [facility] Comment on above: Performed By: #### C BC #### [address] Eosinophils/100 WBC (Bld) 1.6 % Normal . [facility] Comment on above: Performed By: #### C BC #### [address] Erythrocyte distribution width (RBC) [Ratio] 12.4 % Normal 11.9-15.3 [facility] Comment on above: Performed By: #### C BC #### [address] Hematocrit (Bld) [Volume fraction] 35.6 % Normal 34.0-46.4 [facility] Comment on above: Performed By: #### C BC #### [address] Hemoglobin (Bld) [Mass/Vol] 12.1 g/dL Normal 11.8-15.4 [facility] Comment on above: Performed By: #### C BC #### [address] Lymphocytes (Bld) [#/Vol] 1.8 10*3/uL Normal 1.00-4.8 [facility] Comment on above: Performed By: #### C BC #### [place] [address] Lymphocytes/100 WBC (Bld) 29.2 % Normal . [facility] Comment on above: Performed By: #### C BC #### [address] MCH (RBC) [Entitic mass] 30.7 pg Normal 24.7-34.3 [facility] Comment on above: Performed By: #### C BC #### [address] MCV (RBC) [Entitic vol] 90.1 fL Normal 80-100 [facility] Comment on above: Performed By: #### C BC #### [address] Mean Corpuscular HGB Conc 34.0 g/dL Normal 32.0-35.0 [facility] Comment on above: Performed By: #### C BC #### [address] Monocytes (Bld) [#/Vol] 0.4 10*3/uL Normal 0.0-0.8 [facility] Comment on above: Performed By: #### C BC #### [address] Monocytes/100 WBC (Bld) 6.5 % Normal . [facility] Comment on above: Performed By: #### C BC #### [address] Neutrophils (Bld) [#/Vol] 3.7 10*3/uL Normal 1.8-7.7 [facility] Comment on above: Performed By: #### C BC #### [address] Neutrophils/100 WBC (Bld) 60.9 % Normal . [facility] Comment on above: Performed By: #### C BC #### [address] Nucleated RBC/100 WBC (Bld) [Ratio] 0.1 % Normal 0-0.5 [facility] Comment on above: Performed By: #### C BC #### [address] Platelet mean volume (Bld) [Entitic vol] 9.0 fL Normal 6.3-10.7 [facility] Comment on above: Performed By: #### C BC #### [facility] [address] Platelets (Bld) [#/Vol] 233 10*3/uL Normal 150-450 [facility] Comment on above: Performed By: #### C BC #### [address] RBC (Bld) [#/Vol] 3.95 10*6/uL Normal 3.60-5.00 [facility] Comment on above: Performed By: #### C BC #### [address] WBC (Bld) [#/Vol] 6.0 10*3/uL Normal 4.5-11.0 [facility] Comment on above: Performed By: #### C BC #### [address] HCG,Quantitativeon 2 HCG,Quantitative 2128.00 m[iU]/mL Normal [facility] Comment on above: Result Comment: Appr oximate Approximate hCG Gestational Age Range (mIU/ml) (weeks) 0.2-1 5-50 1-2 50-500 2-3 100-5,000 3-4 500-10,000 4-5 1,000-50,000 5-6 10,000-100,000 6-8 15,000-200,000 8-12 10,000-100,000 PERFORMED BY: [place] [address] PATHOLOGIST SPECIAL EDUCATION EDUCATIONAL ASSISTANT BON ZAYAS M.D. Performed By: #### B MP, HCGQNT #### [address] Vital Signs Date Time Vital Sign Value Performing Clinician Facility 05-05-2024 10:08-0500 Body mass index (BMI) [Ratio] 19.53 kg/m2 Mirela Sue DO Work Phone: [facility] 05-05-2024 10:08-0500 Body weight 54.88 kg Mirela Sue DO Work Phone: [facility] 05-05-2024 10:08-0500 Diastolic blood pressure 60 mm[Hg] Mirela Sue DO Work Phone: [facility] 05-05-2024 10:08-0500 Systolic blood pressure 102 mm[Hg] Mirela Sue DO Work Phone: [facility] 12-05-2022 16:00-0400 Hourly Rounding Mirela SUE [facility] Comment on above: Result Comment: disch inst reviewed and pt states understanding 12-05-2022 15:45-0400 Hourly Rounding Mirela SUE [facility] Comment on above: Result Comment: reviewed disch inst and mother to be band placed on pt states understanding 12-05-2022 15:30-0400 Hourly Rounding Mirela SUE [facility] Comment on above: Result Comment: BABY ACTIVE AND PT STATE S HE PUSHES ALOT ON HER LOWER ABD 12-05-2022 15:15-0400 Blood Pressure Location Mirela SUE [facility] 12-05-2022 15:15-0400 Body temperature 97.7 [degF] Mirela SUE [facility] 12-05-2022 15:15-0400 Diastolic blood pressure 63 mm[Hg] Mirela SUE [facility] 12-05-2022 15:15-0400 Heart rate 83 /min Mirela SUE [facility] 12-05-2022 15:15-0400 Mean blood pressure 80 mm[Hg] Mirela SUE [facility] 12-05-2022 15:15-0400 Respiratory rate 16 /min Mirela SUE [facility] 12-05-2022 15:15-0400 Systolic blood pressure 115 mm[Hg] Mirela SUE [facility] 12-02-2022 16:46-0400 Body temperature 97.7 [degF] [facility] 12-02-2022 16:46-0400 Diastolic blood pressure 82 mm[Hg] [facility] 12-02-2022 16:46-0400 Heart rate 108 /min [facility] 12-02-2022 16:46-0400 Respiratory rate 16 /min [facility] 12-02-2022 16:46-0400 SaO2% (BldA) [Mass fraction] 100 % [facility] 12-02-2022 16:46-0400 Systolic blood pressure 124 mm[Hg] [facility] Encounters Encounter Date Encounter Type Care Provider Facility Start: 05-05-2024 End: 05-05-2024 Bamboo flowsheet Mirela Sue DO Work Phone: [facility] Start: 05-05-2024 End: 05-05-2024 Bamboo flowsheet Mirela Sue DO Work Phone: [facility] Start: 05-05-2024 End: 05-05-2024 Office outpatient visit 15 minutes Mirela Sue DO Work Phone: [facility] Comment on above: Amenorrhea Start: 05-05-2024 End: 05-05-2024 ambulatory MIRELA SUE Not Available Start: 07-31-2023 End: 07-31-2023 ambulatory MIRELA SUE Not Available Start: 12-06-2022 End: 01-04-2023 Pre-admission assessment Mirela R SUE [facility] Start: 12-05-2022 End: 12-05-2022 ambulatory Mirela ROGERS Facility:[facility] Start: 12-05-2022 End: 12-05-2022 OB Triage Mirela ROGERS [facility] Start: 12-02-2022 End: 12-02-2022 Emergency department patient visit Ayaan Reed Facility:[facility] Start: 12-02-2022 End: 12-02-2022 Emergency department patient visit Ayaan Reed [facility] Start: 08-21-2022 End: 08-22-2022 Emergency department patient visit Ayaan Reed Facility:[facility] Start: 04-18-2022 End: 04-18-[address] NONE LISTED REQUEST Facility: Start: 03-03-2022 End: 03-03-[address] NONE LISTED REQUEST Facility: Start: 03-03-2022 End: 03-03-2022 Emergency department patient visit Wallace Regalado Facility:[facility] Start: 02-14-2022 End: 02-14-[address] NONE LISTED REQUEST Facility: Start: 08-12-2021 End: 08-12-2021 ambulatory MAYELA ESPINO Facility: Start: 06-05-2021 End: 06-05-2021 Emergency department patient visit PHYSICIAN NO FAMILY Facility:[facility] Start: 05-28-2021 End: 05-28-2021 Emergency department patient visit Torito Garcia Facility:[facility] Procedures Date Procedure Procedure Detail Performing Clinician Start: 05-05-2024 Urine test visual color cmprsn meths Mirela Patricko DO Work Phone: Start: 06-05-2021 Antibody screen PHYSICI AN NO FAMILY Plan of Treatment Date Care Activity Detail Author Start: 05-30-2024 End: 05-30-2024 Patient encounter procedure 05/30/2024 11:20 AM EST Office Visit [facility] [address] [place] [address] [place] [address] Mirela Rogers, DO [address] [place] [address] [place] [address] [facility] Start: 05-23-2024 End: 05-23-2024 Professional / ancillary services management 05/23/2024 11:00 AM EST Ancillary Procedure [facility] [address] [place] [id number] [facility] Start: 05-05-2024 End: 05-05-2025 Antimullerian hormone (AMH) Antimullerian hormone (AMH) Lab Routine Amenorrhea Expected: 05/05/2024 (Approximate), Expires: 05/05/2025 [facility] Comment on above: Expected: 05/05/2024 (Approximate), Expires: 05/05/2025 Start: 05-05-2024 End: 05-05-2025 DHEA DHEA Lab Routine Amenorrhea Expected: 05/05/2024 (Approximate), Expires: 05/05/2025 [facility] Comment on above: Expected: 05/05/2024 (Approximate), Expires: 05/05/2025 Start: 05-05-2024 End: 05-05-2025 US Pelvis US Pelvis w/ TV Imaging Routine Amenorrhea Expected: 05/05/2024, Expires: 05/05/2025 [facility] Comment on above: Expected: 05/05/2024 , Expires: 05/05/2025 Start: 05-05-2024 End: 05-05-2024 Patient encounter procedure 05/05/2024 10:10 AM EST Office Visit [facility] [address] [place] [address] [place] [address] Mirela Rogers, DO [address] [place] [address] Arrived [facility] Comment on above: Arrived Start: 12-06-2023 Influenza vaccination Influenza Vacc ine (#1) [facility] CBC W Auto Different ial panel - Blood CBC and differential Lab Routine Amenorrhea Ordered: 05/05/2024 [facility] Comment on above: Ordered: 05/05/2024 DHEA-sulfate DHEA-sulfate Lab Routine Amenorrhea Ordered: 05/05/2024 [facility] Comment on above: Ordered: 05/05/2024 Follicle stimulating hormone Follicle stimulating hormone Lab Routine Amenorrhea Ordered: 05/05/2024 [facility] Comment on above: Ordered: 05/05/2024 hCG, quantitative, hCG, quantitative, Lab Routine Amenorrhea Ordered: 05/05/2024 [facility] Work Phone: Comment on above: Ordered: 05/05/2024 Hemoglobin A1c/Hemoglobin.total in Blood Hemoglobin A1c Lab Routine Amenorrhea Ordered: 05/05/2024 [facility] Comment on above: Ordered: 05/05/2024 Luteinizing hormone Luteinizing hormone Lab Routine Amenorrhea Ordered: 05/05/2024 [facility] Comment on above: Ordered: 05/05/2024 Prolactin Prolactin Lab Ro utine Amenorrhea Ordered: 05/05/2024 [facility] Comment on above: Ordered: 05/05/2024 Thyrotropin [Units/volume] in Serum or Plasma TSH Lab Routine Amenorrhea Ordered: 05/05/2024 [facility] Comment on above: Ordered: 05/05/2024 Thyroxine (T4) free [Mass/volume] in Serum or Plasma T4, free Lab Routine Amenorrhea Ordered: 05/05/2024 [facility] Comment on above: Ordered: 05/05/2024 Payers Date Payer Category Payer Medicaid (Managed Care) [employer] [id number] 2021 Self-pay 2000 Unknown [id number] 593 2000 Unknown [id number] [id number]. 593 2000 Unknown [id number] [id number]. 593 2000 Unknown [id number] [id number]. 593 2000 Unknown [id number] [id number]. 727 2000 Unknown [id number] [id number]. 727 2000 Unknown [id number] [id number]. 727 2000 Unknown [id number] [id number]. 1259 2000 Unknown [id number] [id number]. 1259 1959 Unknown [id number] Unknown [id number] [id number]. 531 Unknown [id number] [id number]. 531 Unknown [id number]. 531 Social History Date Type Detail Facility Tobacco smoking status [facility] Start: 02-23-2023 Sex Assigned At Female [facility] Start: 12-05-2022 Tobacco smoking status Former smokeless tobacco user, quit more than 30 days ago [facility] Start: 10-19-2022 Tobacco smoking stat [facility] Tobacco smoking consumption unknown [facility] Start: 07-31-2023 End: 05-05-2024 Alcoholic beverage intake Current drinker of alcohol (finding) [facility] Start: 02-23-2023 History of Social function [facility] How often to you hav e a drink containing alcohol? Monthly or less [facility] How many standard drinks containing alcohol do you have on a typical day? 1 or 2 [facility] How often do you hav e 6 or more drinks on 1 occasion? Less than monthly [facility] Start: 09-17-2022 Alcohol Comment Alcohol: 1-2 drinks/monthly or less ; 6 0r more drinks less than monthly [facility] Start: 2000 Sex assigned at Female [facility] Start: 09-11-2022 Gender identity Identifies as female gender (finding) [facility] Goals Date Patient Goal Desired Activity /State Personal health goal Functional Status Date Assessment Result Facility 12-05-2022 Functional Status N/A [facility] 12-02-2022 Functional Status N/A [facility] History of Present illness Narrative 05-05-2024 Ximena Gomez LPN - 05/05/2024 10:10 AM EST Note Date & Type Note Facility 05-05-2024 History of Presen t illness Narrative Reason for Appointment: Patient ID: Lucian Contreras is a 23 y.o. female who presents for Amenorrhea (Pt present today to discuss missed cycles.) Patient presents today for Consult appointment. MEDICATIONS Current Outpatient Medications Medication Instructions loratadine (Claritin) 10 MG tablet TAKE 1 TABLET BY MOUTH EVERY DAY FOR 10 DAYS medroxyPROGESTERone (DEPO-PROVERA) 150 mg, Intramuscular, Once Vit-Fe Fumarate-FA ( Multivitamins) 28-0.8 MG tablet Oral ALLERGIES No Known Allergies PROBLEMS Active Ambulatory Problems Diagnosis Date Noted No Active Ambulatory Problems Resolved Ambulatory Problems Diagnosis Date Noted No Resolved Ambulatory Problems Past Medical History: Diagnosis Date Miscarriage HISTORY PAST MEDICAL HISTORY SOCIAL HISTORY Past Medical History: Diagnosis Date Miscarriage Social History Tobacco Use Smoking status: Unknown Smokeless tobacco: Not on file Vaping Use Vaping status: Every Day Substance Use Topics Alcohol use: Yes Comment: Alcohol: 1-2 drinks/monthly or less ; 6 0r more drinks less than monthly Drug use: Not on file FAMILY HISTORY Family History Problem Relation Name Age of Onset Other (Epilepsy) Mother Other (Thyroid issues) Mother Parkinsonism Mother Breast cancer Maternal Grandmother SURGICAL HISTORY Past Surgical History: Procedure Laterality Date CYST REMOVAL cyst on right cheek removed. FINGER SURGERY Right pinky reattached. REVIEW OF SYSTEMS Review of Systems: Review of Systems All other systems reviewed and are negative. OBJECTIVE Objective: Physical Exam Constitutional: Appearance: Normal appearance. She is well-developed. Cardiovascular: Rate and Rhythm: Normal rate and regular rhythm. Pulmonary: Effort: Pulmonary effort is normal. Breath sounds: Normal breath sounds. Abdominal: General: Bowel sounds are normal. There is no distension. Palpations: Abdomen is soft. Tenderness: There is no abdominal tenderness. There is no guarding or rebound. Musculoskeletal: General: No swelling. Normal range of motion. Right lower leg: No edema. Left lower leg: No edema. Neurological: Mental Status: She is alert and oriented to person, place, and time. Skin: General: Skin is warm and dry. Psychiatric: Mood and Affect: Mood normal. Behavior: Behavior normal. Vitals and nursing note reviewed. Exam conducted with a assault boat coxswain present. Vitals: Estimated body mass index is 19.53 kg/m as calculated from the following: Height as of 09/18/22: 5' 6 . Weight as of this encounter: 121 lb. BP: 102/60 No LMP recorded (lmp unknown). (Menstrual status: No Periods). ASSESSMENT & PLAN ICD-10-CM 1. Amenorrhea N91.2 POCT , urine manually resulted hCG, quantitative, TSH T4, free CBC and differential Follicle stimulating hormone Luteinizing hormone Hemoglobin A1c DHEA-sulfate DHEA US Pelvis w/ TV Prolactin Antimullerian hormone (AMH) DHEA Antimullerian hormone (AMH) Patient presents today for no cycle for the past year or so. Discussed possible causes with patient. Patient to have ultrasound and labs obtained. RTC in 4 weeks for follow up and annual. Added AMH to lab slip as patient desires to have future childbearing. RTC as need and in 4 weeks. Documented by Ximena Gomez LPN on behalf of: Mirela Rogers DO documented in this encounter [facility] Clinical Note 12-05-2022 Note Date & Type Note Facility 12-05-2022 Note The following Patien t Education Materials have been given to the patient: EducationMaterial [facility] Discharge instructions 12-05-2022 Note Date & Type Note Facility 12-05-2022 Hospital Discharg e instructions Patient Education 12/05/2022 15:55:21 Second Trimester of , Dwzm-dd-Oioo Second Trimester of The second trimester of [...] Follow these instructions at home: Medicines Take pglb-jro-[id number] and prescription medicines only as told by [...] a counselor. Where to find more information [employer] [employer]: americanpregnancy.org [employer]: www.acog.org Office [...] provider. Document Revised: 08/29/2020 Document Reviewed: 07/05/2020 [employer] Patient Education 2022 gauzz. Follow Up Care 12/05/2022 15:07:15 With:Mirela ROGERS Address: [address] , [place] [address]- Business (1) When:12/17/2022 Comments:Return if ruptured membranes or vaginal bleedingReturn for decreased movementReturn for contractions closer, longer, harderCall physician if symptoms worsenCall for severe abdominal painCall for fever > 100.5 FCall for any problems. [facility] Hospital Discharge instructions 12-02-2022 Note Date [...] instructions at home: Medicines Take or apply [id number] and prescription medicines only as told by [...] to the hospital. Summary Take or apply kdak-oks-hdzfazn and prescription medicines only as told by [...] provider. Document Revised: 11/19/2020 Document Reviewed: 02/01/2020 [employer] Patient Education 2022 gauzz. Follow Up Care 12/02/2022 16:42:33 With:Ryan Link Address: [facility] [address], [facility] [address] [place] [address]- Business (1) When:12/05/2022 16:59:14 [facility] Evaluation + Plan note 12-02-2022 Note Date & Type Note Facility 12-02-2022 Evaluation + Plan note Extrac colleen from: Title:ED Note Author:Carroll Keene PA-C te:12/02/22 Allergic reaction (T78.40XA: Allergy, unspecified, initial encounter) Orders: loratadine, 10 mg = 1 tab(s), Oral, Daily, X 10 day(s), # 10 tab(s), Refills(s) 0, Pharmacy: [facility]/pharmacy #[id number], 167.6, cm, 12/02/22 16:49:00 EDT, Height/Length Dosing, 61.4, kg, 12/02/22 16:49:00 EDT, Weight Dosing methylPREDNISolone, = 1 packet(s), Oral, As Directed, as directed on package labeling, X 6 day(s), # 21 tab(s), Refills(s) 0, Pharmacy: [facility]/pharmacy #[id number], 167.6, cm, 12/02/22 16:49:00 EDT, Height/Length Dosing, 61.4, kg, 12/02/22 16:49:00 EDT, Weight Dosing [facility] Evaluation note Note Date & Type Note Facility Evaluation note Diagnosis Amenorrhea Absence of menstruation documented in this encounter [facility] Hospital course Narrative Note Date & Type Note Facility Hospital course Narrative No data available for this section [facility] Hospital Discharge instructions Note Date & Type Note Facility Hospital Discharge instructions No data available for this section [facility] Progress note Note Date & Type Note Facility Progress note No data available for this section [facility] Summary Purpose Family History No Family History Records FoundNo Family History Records FoundNo Family History Records Found No data available for this section No Family History Records Found Advance Directives No Advanced Directives Records FoundNo Advanced Directives Records FoundNo Advanced Directives Records FoundNo Advanced Directives Records Found Additional Source Comments INFORMATION SOURCE (unrecogn ized section and content) DATE CREATED AUTHOR 03/17/2022 [facility] DATE CREATED AUTHOR AUTHOR'S ORGANIZ ATION 04/21/2022 Maria E Blankenship [facility] DATE CREATED AUTHOR AUTHOR'S ORGANIZ ATION 12/11/2022 [facility] DATE CREATED AUTHOR AUTHOR'S ORGANIZ ATION 05/07/2024 [facility] [employer] Care Teams (unrecognized sec tion and content) Radiation Technician Relationship Specialty Start Date End Date Radha Doan PA [address] [place] [address] [place] [address] PCP - [facility] 07/06/23 Reason for Visit (unrecogniz ed section and content) Reason Comments Amenorrhea Pt present today to discuss missed cycles. FOR RECORDS PERTAINING TO PATIENTS WHO ARE [...] BE BASED ON THE PRIMARY CLINICAL RECORDS. [facility] [employer] [facility]. provides no warranty or guarantee of the accuracy or completeness of information in this document.
[2024-05-12 13:12] LABS: Basophils Absolute Auto 0.1 10^3/uL (0.0-0.1); Basophils Percent Auto 1.4 % (0.2-2.0); Eosinophils Absolute Auto 0.1 10^3/uL (0.0-0.7); Eosinophils Percent Auto 2.2 % (0.9-7.0); Hematocrit 39.5 % (36.0-48.0); Hemoglobin 13.4 g/dL (12.0-16.0); Immature Granulocytes Abs Auto 0.04 10^3/uL (0.00-0.03); Immature Granulocytes Pct Auto 0.6 % (0.0-0.5); Lymphocytes Absolute Auto 1.1 10^3/uL (1.2-3.8); Lymphocytes Percent Auto 17.5 % (20.5-60.0); Mean Corpuscular HGB Conc 33.9 g/dL (29.9-35.2); Mean Corpuscular Hemoglobin 30.7 pg (26.7-34.0); Mean Corpuscular Volume 90.4 fL (81.0-99.0); Mean Platelet Volume 10.5 fL (9.5-13.5); Monocytes Absolute Auto 0.3 10^3/uL (0.3-0.8); Monocytes Percent Auto 5.3 % (1.7-12.0); Neutrophils Absolute Auto 4.6 10^3/uL (1.4-6.5); Platelet Count 214 10^3/uL (150-450); Red Blood Count 4.37 10^6/uL (4.20-5.40); Red Cell Distribution Width 11.9 % (11.0-15.0); White Blood Count 6.4 10^3/uL (4.0-11.0)
[2024-05-12 13:39] LABS: Estimated Average Glucose 94 mg/dL; Glycohemoglobin A1C 4.9 % (4.5-6.2)
[2024-05-12 14:01] LABS: HCG Quantitative <1 mIU/mL
[2024-05-12 14:23] LABS: Free T4 0.85 ng/dL (0.76-1.46)
[2024-05-13 04:08] LABS: FSH 3.4 mIU/mL (.); Luteinizing Hormone(LH) 2.1 mIU/mL (.)
[2024-05-16 17:06] LABS: Anti-Mullerian Hormone (AMH) 2.36 ng/mL (.)
[2024-05-18 07:07] LABS: DHEA, Serum 76 ng/dL (31-701)
== END 2024-05-12 12:55 | disposition home or self-care (01) ==
LOC: LAB 12:56
PROVIDERS: Visit Provider Obstetrics & Gynecology
DX: N91.2 Amenorrhea, unspecified (principal)
CPT/HCPCS: 36415; 82397; 82626; 82627; 83001; 83002; 83036; 84439; 84443; 84702; 85025